=== PATIENT | female | born 1940 | race Caucasian/White ===

== ENCOUNTER → 2018-03-12 11:34 | Outpatient (CLI) | payer MEDICARE, OTHER, SELFPAY ==
--- NOTE | 2018-03-12 | DI.RAD.S_ITS ---
PROCEDURE: XR CHEST 2V INDICATIONS: COUGH TECHNIQUE: 2 views of the chest were acquired. COMPARISON: [facility], CHEST 2 VIEW, 03/17/2016, 11:17. [facility], CHEST 1 VIEW, 02/27/2012, 19:06. FINDINGS: Surgical changes and devices: None. Lungs and pleura: No pleural effusions or pneumothorax. Lungs are clear. Mediastinum: Mediastinal contours are normal. Heart size is normal. Bones and chest wall: No suspicious bony abnormalities. Soft tissues appear unremarkable. IMPRESSION: Normal for age, source of current symptoms is not seen. Dictated by: Gasper Castelan M.D. on 03/12/2018 at 11:55 Approved by: Gasper Castelan M.D. on 03/12/2018 at 11:55
== END ==
PROVIDERS: Family Provider Family Medicine; PCP Family Medicine; Visit Provider Family Medicine
DX: R05 Cough (principal)
CPT/HCPCS: 71046

== ENCOUNTER → 2018-04-19 10:26 | Outpatient (CLI) | payer MEDICARE, OTHER, SELFPAY ==
--- NOTE | 2018-04-19 | DI.MG.S_ITS ---
BILATERAL DIGITAL SCREENING MAMMOGRAM 3D/2D WITH CAD: 04/19/2018 CLINICAL: Routine screening. Family history of breast cancer. Comparison is made to exams dated: 04/05/2017 mammogram, 01/25/2016 mammogram, and 01/15/2015 mammogram - [facility]. There are scattered fibroglandular elements in both breasts. Current study was also evaluated with a Computer Aided Detection (CAD) system. There is a benign biopsy clip in the left breast. No significant masses, calcifications, or other findings are seen in either breast. There has been no significant interval change. IMPRESSION: NEGATIVE There is no mammographic evidence of malignancy. A 1 year screening mammogram is recommended. This exam was interpreted at Station ID: [id number]. NOTE: For mammograms, a report in lay terms will be sent to the patient. Approximately 15% of breast malignancies will not be visualized mammographically. In the management of a palpable breast mass, a negative mammogram must not discourage biopsy of a clinically suspicious lesion. Electronically Signed By: Emani jang/sheeba:04/20/2018 14:57:49 letter sent: Normal Exam ACR BI-RADS Category 1: Negative 3341F
== END ==
PROVIDERS: Family Provider Family Medicine; PCP Family Medicine; Visit Provider Family Medicine
DX: Z12.31 Encounter for screening mammogram for malignant neoplasm of breast (principal); Z80.3 Family history of malignant neoplasm of breast
CPT/HCPCS: 77063; 77067

== ENCOUNTER → 2018-07-02 09:15 | Outpatient (CLI) | payer MEDICARE, OTHER, SELFPAY ==
--- NOTE | 2018-07-02 | DI.RAD.S_ITS ---
PROCEDURE: XR CERVICAL SPINE 2V OR 3V INDICATIONS: NECK PAIN TECHNIQUE: 3 view(s) of the cervical spine were acquired. COMPARISON: [facility], CR, XR CERVICAL SPINE 2 OR 3VW, 02/05/2015, 12:01. FINDINGS: Bones: No fractures or dislocations to the T1 level. Loss of lordosis which could be related to muscle spasm, rigidity or simply positional.grade 1 spondylolisthesis C4-C5. Multilevel disc degeneration,, severe at the C5-C6 level. Moderate multilevel mid and lower cervical spine facet joint arthropathy. Mild to moderate multilevel uncovertebral hypertrophy. The lateral masses of C1 appear intact on the odontoid view. No suspicious bony lesions. Soft tissues: No prevertebral soft tissue swelling. IMPRESSION: Multilevel degenerative change. Dictated by: Henrique George [facility] Interpreted: Gasper Castelan MD on 07/02/2018 at 9:36 Approved by: Gasper Castelan M.D. on 07/02/2018 at 14:19
== END ==
PROVIDERS: Family Provider Family Medicine; PCP Family Medicine; Visit Provider Family Medicine
DX: M54.2 Cervicalgia (principal); M47.812 Spondylosis without myelopathy or radiculopathy, cervical region
CPT/HCPCS: 72040

== ENCOUNTER → 2018-08-09 09:25 | Outpatient (REF) | payer MEDICARE, OTHER, SELFPAY ==
[2018-08-09 09:45] LABS: INR 2.7 (0.9-1.3); Prothrombin Time 31.1 SECONDS (10.1-12.7)
== END ==
LOC: LAB 09:25
PROVIDERS: Family Provider Family Medicine; PCP Family Medicine; Visit Provider Family Medicine
DX: Z79.01 Long term (current) use of anticoagulants (principal)
CPT/HCPCS: 85610

== ENCOUNTER → 2018-08-20 12:09 | Outpatient (CLI) | payer MEDICARE, OTHER, SELFPAY ==
--- NOTE | 2018-08-20 | DI.RAD.S_ITS ---
PROCEDURE: XR KNEE RT 3V INDICATIONS: RT KNEE PAIN TECHNIQUE: 3 views of the knee were acquired. COMPARISON: None. FINDINGS: Bones: No fractures or dislocations. No suspicious bony lesions. Mild degenerative joint space narrowing at the medial compartment of the right knee, moderate sized degeneration of the lateral facet of the patellofemoral joint. Soft tissues: No joint effusion. No suspicious soft tissue calcifications. 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 Dictated by: Gasper Castelan M.D. on 08/20/2018 at 13:02 Approved by: Gasper Castelan M.D. on 08/20/2018 at 13:02
== END ==
PROVIDERS: PCP Family Medicine; Visit Provider Family Medicine
DX: M25.561 Pain in right knee (principal); M17.11 Unilateral primary osteoarthritis, right knee
CPT/HCPCS: 73562

== ENCOUNTER → 2018-09-10 10:46 | Outpatient (REF) | payer MEDICARE, OTHER, SELFPAY ==
[2018-09-10 11:03] LABS: INR 3.2 (0.9-1.3); Prothrombin Time 37.9 SECONDS (10.1-12.7)
== END ==
LOC: LAB 10:46
PROVIDERS: PCP Family Medicine; Visit Provider Family Medicine
DX: Z79.01 Long term (current) use of anticoagulants (principal)
CPT/HCPCS: 85610

== ENCOUNTER → 2018-10-11 11:03 | Outpatient (ROUT) | payer MEDICARE, OTHER, SELFPAY ==
[2018-10-11 11:22] LABS: INR 2.8 (0.9-1.3); Prothrombin Time 33.4 SECONDS (10.1-12.7)
== END ==
PROVIDERS: PCP Family Medicine; Visit Provider Family Medicine
DX: Z79.01 Long term (current) use of anticoagulants (principal)
CPT/HCPCS: 85610

== ENCOUNTER → 2018-11-07 09:30 | Outpatient (ROUT) | payer MEDICARE, OTHER, SELFPAY ==
[2018-11-07 09:40] LABS: INR 3.7 (0.9-1.3); Prothrombin Time 44.2 SECONDS (10.1-12.7)
== END ==
PROVIDERS: PCP Family Medicine; Visit Provider Family Medicine
DX: Z79.01 Long term (current) use of anticoagulants (principal)
CPT/HCPCS: 85610

== ENCOUNTER → 2018-11-30 13:43 | Outpatient (CLI) | payer MEDICARE, OTHER, SELFPAY ==
--- NOTE | 2018-11-30 | DI.ECHO.S_ITS ---
[place] [facility]---------+ [facility] +---------+ : : [address] : : : : [id number] : : : : Phone: [phone]+ Echocardiogram Report + + :Name: NORY MAGAÑA Study Date: 11/30/2018 Height: 66 in : :[facility] Exam Location: [place] Weight: 137 lb : : Gender: Female BSA: 1.7 m2 : :: 1940 Age: 78 yrs BP: 122/75 mmHg: :Reason For Study: Tachycardia : :Ordering Physician: Marc : :Miguel Performed By: Maribeth Page : + + Interpretation Summary The left ventricle is normal in size. The ejection fraction is estimated to be 60-65%. There has been no significant change in LV EF since the previous study. The right ventricle is normal in size and function. There is moderate mitral regurgitation. Compared to the prior echo study, there has been no change in the severity of mitral regurgitation. There is moderate to severe tricuspid regurgitation. Compared to the prior echo exam, there has been no change in TR severity. The right ventricular systolic pressure is estimated to be at least 48 mmHg based on an estimated right atrial pressure of 8 mm Hg. Compared to the prior echo exam, there has been no change in the severity of pulmonary hypertension. Procedure: A two-dimensional transthoracic echocardiogram with color flow and Doppler was performed. The study quality was technically adequate. Comparison is made with the echocardiogram of . The heart rate ranged between 61-84 bpm during the study. The patient had frequent PVCs during the exam. The patient was in normal sinus rhythm during the exam. Left Ventricle: The left ventricle is normal in size. There is normal left ventricular wall thickness. There is no thrombus. The ejection fraction is estimated to be 60-65%. There has been no significant change since the previous study. There are no focal wall motion abnormalities. MV E/A: 1.0 Med Peak E' Jd: 4.3 cm/sec E/E' med: 17.3. Right Ventricle: The right ventricle is normal in size and function. Atria: The left atrium is severely dilated. The left atrium has remained unchanged in size since the prior echo exam. The right atrium is mild to moderately dilated. There is no Doppler evidence for an interatrial shunt. Mitral Valve: The mitral valve leaflets appear mildly thickened, but open well. There is mild mitral annular calcification. There is a flat closure plane of the the mitral valve leaflets. There is moderate mitral regurgitation. Compared to the prior echo study, there has been no change in the severity of mitral regurgitation. Aortic Valve: The aortic valve is trileaflet. The aortic valve opens well. There is mild aortic valve sclerosis. No aortic regurgitation is present. Tricuspid Valve: The tricuspid valve leaflets are thin and pliable. There is moderate to severe tricuspid regurgitation. The right ventricular systolic pressure is estimated to be at least 48 mmHg based on an estimated right atrial pressure of 8 mm Hg. Compared to the prior echo exam, there has been no change in TR severity. Compared to the prior echo exam, there has been no change in the severity of pulmonary hypertension. Pulmonic Valve: The pulmonic valve is not well visualized. Great Vessels: The aortic root is normal size. The ascending aorta is normal in size. The pulmonary is not well visualized. The IVC is dilated (diameter is greater than 2.1 cm) yet it collapses greater than 50% with a sniff. This suggests a right atrial pressure of 8 mm Hg. Pericardium/ Pleura There is no pericardial effusion. There is no pleural effusion. MMode/2D Measurements & Calculations LVIDd: 4.3 cm Ao root diam: 3.0 cm LVIDs: 2.7 cm asc Aorta Diam: 2.7 cm FS: 38.2 % EPSS: 0.35 cm IVSd: 0.71 cm LVPWd: 0.95 cm LV keita. diameter/BSA (cm/m^2): 2.5 LV sys. diameter/BSA (cm/m^2): 1.6 LA A2 area: 32.3 cm2 RA long axis: 6.3 cm LA A4 area: 25.5 cm2 RA area: 21.1 cm2 LA length (vol): 6.2 cm RA vol: 60.2 ml LA vol: 113.1 ml RA : 35.4 ml/m2 LA vol index: 66.4 ml/m2 IVC diam: 2.3 cm RVD1 (basal): 4.2 cm RVD2 (mid): 3.5 cm Doppler Measurements & Calculations Ao V2 max: 116.4 cm/sec LVOT Max Jd: 83.8 cm/sec Ao V2 mean: 77.8 cm/sec LV V1 max P.8 mmHg Ao max P.4 mmHg LV V1 VTI: 18.0 cm Ao mean P.9 mmHg sev ratio: 0.66 Ao V2 VTI: 27.2 cm MV E max jd: 75.0 cm/sec TR max jd: 315.2 cm/sec MV A max jd: 71.5 cm/sec TR max P.8 mmHg MV E/A: 1.0 PA V2 max: 57.0 cm/sec Med Peak E' Jd: 4.3 cm/sec PA V2 mean: 40.9 cm/sec E/E' med: 17.3 PA mean P.74 mmHg Lat Peak E' Jd: 6.1 cm/sec PA Accel Time: 0.04 sec E/E' lat: 12.3 E/e' average: 14.8 MV P1/2t: 27.1 msec MV P1/2t max jd: 75.0 cm/sec MVA(P1/2t): 8.1 cm2 Reading Physician:APURVA
== END ==
PROVIDERS: PCP Family Medicine; Visit Provider Internal Medicine Cardiovascular Disease
DX: I47.2 Ventricular tachycardia (principal)
CPT/HCPCS: 93306

== ENCOUNTER → 2018-12-06 12:06 | Outpatient (ROUT) | payer MEDICARE, OTHER, SELFPAY ==
[2018-12-06 12:17] LABS: INR 3.2 (0.9-1.3)
== END ==
PROVIDERS: PCP Family Medicine; Visit Provider Family Medicine
DX: Z79.01 Long term (current) use of anticoagulants (principal)
CPT/HCPCS: 85610

== ENCOUNTER → 2019-01-09 12:48 | Outpatient (ROUT) | payer MEDICARE, OTHER, SELFPAY ==
[2019-01-09 13:02] LABS: INR 2.6 (0.9-1.3); Prothrombin Time 30.3 SECONDS (10.1-12.7)
== END ==
PROVIDERS: PCP Family Medicine; Visit Provider Family Medicine
DX: I26.99 Other pulmonary embolism without acute cor pulmonale (principal); Z79.01 Long term (current) use of anticoagulants
CPT/HCPCS: 85610

== ENCOUNTER → 2019-04-05 09:30 | Outpatient (ROUT) | payer MEDICARE, OTHER, SELFPAY ==
[2019-04-05 09:49] LABS: INR 2.7 (0.9-1.3); Prothrombin Time 31.9 SECONDS (10.1-12.7)
== END ==
PROVIDERS: PCP Family Medicine; Visit Provider Family Medicine
DX: Z79.01 Long term (current) use of anticoagulants (principal)
CPT/HCPCS: 85610

== ENCOUNTER → 2019-04-22 15:02 | Outpatient (CLI) | payer MEDICARE, OTHER, SELFPAY ==
--- NOTE | 2019-04-22 | DI.MG.S_ITS ---
BILATERAL DIGITAL SCREENING MAMMOGRAM 3D/2D WITH CAD: 04/22/2019 CLINICAL: Routine screening. Family history of breast cancer. Comparison is made to exams dated: 04/19/2018 mammogram, 04/05/2017 mammogram, and 01/25/2016 mammogram - [facility]. The tissue of both breasts is heterogeneously dense. This may lower the sensitivity of mammography. Current study was also evaluated with a Computer Aided Detection (CAD) system. There is a 0.4 cm equal density focal asymmetry in the left breast at 3 o'clock middle depth. This is more prominent. No other significant masses, calcifications, or other findings are seen in either breast. IMPRESSION: INCOMPLETE: NEEDS ADDITIONAL IMAGING EVALUATION The 0.4 cm equal density focal asymmetry in the left breast is indeterminate. Additional views with possible ultrasound are recommended. This exam was interpreted at Station ID: [id number]. NOTE: For mammograms, a report in lay terms will be sent to the patient. Approximately 15% of breast malignancies will not be visualized mammographically. In the management of a palpable breast mass, a negative mammogram must not discourage biopsy of a clinically suspicious lesion. Electronically Signed By: Juma Sheikh M.D. aty/:04/22/2019 20:00:12 letter sent: Additional Imaging Needed ACR BI-RADS Category 0: Incomplete 3340F
== END ==
PROVIDERS: PCP Family Medicine; Visit Provider Family Medicine
DX: Z12.31 Encounter for screening mammogram for malignant neoplasm of breast (principal); Z80.3 Family history of malignant neoplasm of breast
CPT/HCPCS: 77063; 77067

== ENCOUNTER → 2019-04-25 12:43 | Outpatient (CLI) | payer MEDICARE, OTHER, SELFPAY ==
--- NOTE | 2019-04-25 | DI.MG.S_ITS ---
UNILATERAL LEFT DIGITAL DIAGNOSTIC MAMMOGRAM 3D/2D WITH ADDITIONAL VIEWS: 04/25/2019 CLINICAL: Additional evaluation requested from prior study. Comparison is made to exams dated: 04/22/2019 mammogram, 04/19/2018 mammogram, and 04/05/2017 mammogram - [facility]. There are scattered fibroglandular elements in left breast. There is a 6 mm round asymmetry with a microlobulated margin in the left breast at 3 o'clock middle depth. This is confirmed with additional views. A biopsy clip is present in the upper outer quadrant, separate from this finding. No other significant masses or calcifications are seen in the breast. IMPRESSION: INCOMPLETE: NEEDS ADDITIONAL IMAGING EVALUATION The 6 mm round asymmetry in the left breast is indeterminate. An ultrasound is recommended. This was performed immediately following this exam. This exam was interpreted at Station ID: [id number]. NOTE: For mammograms, a report in lay terms will be sent to the patient. Approximately 15% of breast malignancies will not be visualized mammographically. In the management of a palpable breast mass, a negative mammogram must not discourage biopsy of a clinically suspicious lesion. Electronically Signed By: Jeanine walden/:04/25/2019 13:52:26 ACR BI-RADS Category 0: Incomplete 3340F
--- NOTE | 2019-04-25 | DI.US.S_ITS ---
ULTRASOUND OF LEFT BREAST AND AXILLA: 04/25/2019 CLINICAL: Patient returns today to evaluate a density in the left breast. Comparison is made to exams dated: 04/25/2019 mammogram, 04/22/2019 mammogram, 04/19/2018 mammogram, 04/05/2017 mammogram, 01/25/2016 mammogram, and 01/15/2015 mammogram - [facility]. Color flow, real-time, and continuous wave Doppler ultrasound of the left breast axilla were performed. There is a 0.5 cm x 0.3 cm x 0.4 cm wider than tall oval mass in the left breast at 1 o'clock middle depth 3 cm from the nipple. This oval mass displays an abrupt boundary and no posterior acoustic shadowing or enhancement. This correlates with mammography findings. Color flow imaging demonstrates that there is vascularity present. There also is a 0.4 cm x 0.3 cm x 0.3 cm oval mass in the left breast at 1:30 middle depth 3 cm from the nipple. This oval mass is hypoechoic with slight posterior acoustic enhancement. Color flow imaging demonstrates that there is an adjacent vascularity. This may correspond to the biopsy marker. No significant abnormalities were seen sonographically in the left axilla. IMPRESSION: PROBABLY BENIGN The 0.5 cm wider than tall oval mass in the left breast at 1 o'clock middle depth is probably benign. The 0.4 cm oval mass in the left breast at 2 o'clock middle depth is probably benign. A follow-up left mammogram and an ultrasound in 6 months is recommended to demonstrate stability. Findings and recommendations were conveyed to the patient at time of exam. This exam was interpreted at Station ID: [id number]. Electronically Signed By: Jeanine walden/:04/25/2019 14:11:22 letter sent: Followup Recommended Ultrasound BI-RADS: 3 Probably benign
== END ==
PROVIDERS: PCP Family Medicine; Visit Provider Family Medicine
DX: R92.8 Other abnormal and inconclusive findings on diagnostic imaging of breast (principal); N63.21 Unspecified lump in the left breast, upper outer quadrant
CPT/HCPCS: 76642; 77065; G0279

== ENCOUNTER → 2019-05-02 09:28 | Outpatient (ROUT) | payer MEDICARE, OTHER, SELFPAY ==
[2019-05-02 09:40] LABS: INR 4.1 (0.9-1.3); Prothrombin Time 48.7 SECONDS (10.1-12.7)
== END ==
PROVIDERS: PCP Family Medicine; Visit Provider Family Medicine
DX: Z79.01 Long term (current) use of anticoagulants (principal)
CPT/HCPCS: 85610

== ENCOUNTER → 2019-05-09 09:20 | Outpatient (ROUT) | payer MEDICARE, OTHER, SELFPAY ==
[2019-05-09 09:33] LABS: INR 1.8 (0.9-1.3)
== END ==
PROVIDERS: PCP Family Medicine; Visit Provider Family Medicine
DX: Z79.01 Long term (current) use of anticoagulants (principal)
CPT/HCPCS: 85610

== ENCOUNTER → 2019-05-16 09:09 | Outpatient (ROUT) | payer MEDICARE, OTHER, SELFPAY ==
[2019-05-16 09:23] LABS: INR 2.9 (0.9-1.3); Prothrombin Time 34.4 SECONDS (10.1-12.7)
== END ==
PROVIDERS: PCP Family Medicine; Visit Provider Family Medicine
DX: Z79.01 Long term (current) use of anticoagulants (principal)
CPT/HCPCS: 85610

== ENCOUNTER → 2019-06-06 09:14 | Outpatient (ROUT) | payer MEDICARE, OTHER, SELFPAY ==
[2019-06-06 09:20] LABS: INR 2.8 (0.9-1.3); Prothrombin Time 32.5 SECONDS (10.1-12.7)
== END ==
PROVIDERS: PCP Family Medicine; Visit Provider Family Medicine
DX: Z79.01 Long term (current) use of anticoagulants (principal)
CPT/HCPCS: 85610

== ENCOUNTER → 2019-07-01 09:55 | Outpatient (ROUT) | payer MEDICARE, OTHER, SELFPAY ==
[2019-07-01 10:04] LABS: INR 2.2 (0.9-1.3); Prothrombin Time 25.3 SECONDS (10.1-12.7)
== END ==
PROVIDERS: PCP Family Medicine; Visit Provider Family Medicine
DX: Z79.01 Long term (current) use of anticoagulants (principal)
CPT/HCPCS: 85610

== ENCOUNTER → 2019-07-18 09:37 | Outpatient (ROUT) | payer MEDICARE, OTHER, SELFPAY ==
[2019-07-18 09:54] LABS: INR 2.8 (0.9-1.3); Prothrombin Time 31.5 SECONDS (10.1-12.7)
== END ==
PROVIDERS: PCP Family Medicine; Visit Provider Family Medicine
DX: Z79.01 Long term (current) use of anticoagulants (principal)
CPT/HCPCS: 85610

== ENCOUNTER → 2019-07-31 09:24 | Outpatient (ROUT) | payer MEDICARE, OTHER, SELFPAY ==
[2019-07-31 09:33] LABS: INR 2.2 (0.9-1.3); Prothrombin Time 24.5 SECONDS (10.1-12.7)
== END ==
PROVIDERS: PCP Family Medicine; Visit Provider Family Medicine
DX: Z79.01 Long term (current) use of anticoagulants (principal)
CPT/HCPCS: 85610

== ENCOUNTER → 2019-08-16 09:37 | Outpatient (ROUT) | payer MEDICARE, OTHER, SELFPAY ==
[2019-08-16 09:46] LABS: Prothrombin Time 22.5 SECONDS (10.1-12.7)
== END ==
PROVIDERS: PCP Family Medicine; Visit Provider Family Medicine
DX: Z79.01 Long term (current) use of anticoagulants (principal)
CPT/HCPCS: 85610

== ENCOUNTER → 2019-09-03 09:02 | Outpatient (ROUT) | payer MEDICARE, OTHER, SELFPAY ==
[2019-09-03 09:10] LABS: INR 1.8 (0.9-1.3); Prothrombin Time 20.6 SECONDS (10.1-12.7)
== END ==
PROVIDERS: PCP Family Medicine; Visit Provider Family Medicine
DX: Z79.01 Long term (current) use of anticoagulants (principal)
CPT/HCPCS: 85610

== ENCOUNTER → 2019-10-03 09:46 | Outpatient (ROUT) | payer MEDICARE, OTHER, SELFPAY ==
[2019-10-03 09:55] LABS: INR 2.4 (0.9-1.3); Prothrombin Time 27.5 SECONDS (10.1-12.7)
== END ==
PROVIDERS: PCP Family Medicine; Visit Provider Family Medicine
DX: Z79.01 Long term (current) use of anticoagulants (principal)
CPT/HCPCS: 85610

== ENCOUNTER → 2019-11-06 09:26 | Outpatient (ROUT) | payer MEDICARE, OTHER, SELFPAY ==
[2019-11-06 10:04] LABS: INR 3.3 (0.9-1.3); Prothrombin Time 36.9 SECONDS (10.1-12.7)
== END ==
PROVIDERS: PCP Family Medicine; Visit Provider Family Medicine
DX: Z79.01 Long term (current) use of anticoagulants (principal)
CPT/HCPCS: 85610

== ENCOUNTER → 2019-12-03 09:40 | Outpatient (ROUT) | payer MEDICARE, OTHER, SELFPAY ==
[2019-12-03 09:53] LABS: INR 2.8 (0.9-1.3); Prothrombin Time 31.7 SECONDS (10.1-12.7)
== END ==
PROVIDERS: PCP Family Medicine; Visit Provider Family Medicine
DX: Z79.01 Long term (current) use of anticoagulants (principal)
CPT/HCPCS: 85610

== ENCOUNTER → 2020-01-02 09:33 | Outpatient (ROUT) | payer MEDICARE, OTHER, SELFPAY ==
[2020-01-02 09:53] LABS: Prothrombin Time 34.3 SECONDS (10.1-12.7)
== END ==
PROVIDERS: PCP Family Medicine; Visit Provider Family Medicine
DX: Z79.01 Long term (current) use of anticoagulants (principal)
CPT/HCPCS: 85610

== ENCOUNTER → 2020-02-05 13:17 | Outpatient (ROUT) | payer MEDICARE, OTHER, SELFPAY ==
[2020-02-05 13:25] LABS: INR 3.2 (0.9-1.3); Prothrombin Time 36.7 SECONDS (10.1-12.7)
== END ==
PROVIDERS: PCP Family Medicine; Visit Provider Family Medicine
DX: I26.99 Other pulmonary embolism without acute cor pulmonale (principal); Z79.01 Long term (current) use of anticoagulants
CPT/HCPCS: 85610

== ENCOUNTER → 2020-03-06 12:40 | Outpatient (CLI) | payer MEDICARE, OTHER, SELFPAY ==
--- NOTE | 2020-03-06 | DI.US.S_ITS ---
LIMITED ULTRASOUND OF LEFT BREAST AND AXILLA: 03/06/2020 CLINICAL: Patient returns today to evaluate a focal asymmetry in the left breast. Follow-up mass. Comparison is made to exams dated: 03/06/2020 mammogram, 04/25/2019 ultrasound, and 04/25/2019 mammogram - [facility]. Color flow and real-time ultrasound of the left breast 1-2 o'clock, and axilla regions were performed. Maldonado scale images of the real-time examination were reviewed. Again noted is the 0.6 cm x 0.3 cm x 0.4 cm wider than tall oval mass in the left breast at 1 o'clock middle depth 3 cm from the nipple. This oval mass displays an abrupt boundary and no posterior acoustic shadowing or enhancement. This abnormality is not significantly changed and likely correlates with mammography findings. Color flow imaging demonstrates that there is an adjacent vascularity. There also is a 0.6 cm x 0.4 cm x 0.6 cm oval mass in the left breast at 2 o'clock middle depth 3 cm from the nipple. This oval mass is hypoechoic with posterior acoustic enhancement. This abnormality is not significantly changed. Color flow imaging demonstrates that there is an adjacent vascularity. No significant abnormalities were seen sonographically in the left axilla. IMPRESSION: PROBABLY BENIGN The 0.6 cm x 0.3 cm x 0.4 cm wider than tall oval mass in the left breast at 1 o'clock middle depth is probably benign. The 0.6 cm x 0.4 cm x 0.6 cm oval mass in the left breast at 2 o'clock middle depth is also probably benign. A follow-up bilateral mammogram and a left ultrasound in 12 months is recommended to document approximately two years of stability. Findings and recommendations were conveyed to the patient during today's evaluation. This exam was interpreted at Station ID: [id number]. Electronically Signed By: Juma Sheikh M.D. aty/:03/06/2020 14:19:11 letter sent: Followup Recommended Ultrasound BI-RADS: 3 Probably benign
--- NOTE | 2020-03-06 | DI.MG.S_ITS ---
BILATERAL DIGITAL DIAGNOSTIC MAMMOGRAM 3D/2D SHORT-TERM FOLLOW-UP: 03/06/2020 CLINICAL: Short term follow up of the left breast, due for bilateral imaging. Comparison is made to exams dated: 04/25/2019 mammogram, 04/22/2019 mammogram, and 04/19/2018 mammogram - [facility]. There are scattered fibroglandular elements in both breasts. There is a biopsy site marker on the left breast. Redemonstrations of the 6 mm round asymmetry with a microlobulated margin in the left breast at 3 o'clock middle depth. This is not significantly changed. No other significant masses, calcifications, or other findings are seen in either breast. IMPRESSION: INCOMPLETE: NEEDS ADDITIONAL IMAGING EVALUATION The 6 mm round asymmetry in the left breast is indeterminate. An ultrasound is recommended for further evaluation and is scheduled to immediately follow this study. This exam was interpreted at Station ID: [id number]. NOTE: For mammograms, a report in lay terms will be sent to the patient. Approximately 15% of breast malignancies will not be visualized mammographically. In the management of a palpable breast mass, a negative mammogram must not discourage biopsy of a clinically suspicious lesion. Electronically Signed By: Juma Sheikh M.D. aty/:03/06/2020 14:14:28 ACR BI-RADS Category 0: Incomplete [id number]
== END ==
PROVIDERS: PCP Family Medicine; Referring Provider Family Medicine; Visit Provider Family Medicine
DX: R92.8 Other abnormal and inconclusive findings on diagnostic imaging of breast (principal); N64.89 Other specified disorders of breast; N63.21 Unspecified lump in the left breast, upper outer quadrant
CPT/HCPCS: 76642; 77066; G0279

== ENCOUNTER → 2020-03-09 12:04 | Outpatient (ROUT) | payer MEDICARE, OTHER, SELFPAY ==
[2020-03-09 12:12] LABS: INR 4.1 (0.9-1.3); Prothrombin Time 46.7 SECONDS (10.1-12.7)
== END ==
PROVIDERS: PCP Family Medicine; Visit Provider Family Medicine
DX: Z79.01 Long term (current) use of anticoagulants (principal)
CPT/HCPCS: 85610

== ENCOUNTER → 2020-03-20 08:49 | Outpatient (ROUT) | payer MEDICARE, OTHER, SELFPAY ==
[2020-03-20 09:15] LABS: INR 2.2 (0.9-1.3); Prothrombin Time 25.5 SECONDS (10.1-12.7)
== END ==
PROVIDERS: PCP Family Medicine; Visit Provider Family Medicine
DX: Z79.01 Long term (current) use of anticoagulants (principal)
CPT/HCPCS: 85610

== ENCOUNTER → 2020-04-03 09:22 | Outpatient (ROUT) | payer MEDICARE, OTHER, SELFPAY ==
[2020-04-03 09:35] LABS: INR 2.3 (0.9-1.3); Prothrombin Time 25.9 SECONDS (10.1-12.7)
== END ==
PROVIDERS: PCP Family Medicine; Visit Provider Family Medicine
DX: Z79.01 Long term (current) use of anticoagulants (principal)
CPT/HCPCS: 85610

== ENCOUNTER → 2020-04-17 09:20 | Outpatient (ROUT) | payer MEDICARE, OTHER, SELFPAY ==
[2020-04-17 09:29] LABS: INR 3.1 (0.9-1.3); Prothrombin Time 34.8 SECONDS (10.1-12.7)
== END ==
PROVIDERS: PCP Family Medicine; Visit Provider Family Medicine
DX: Z79.01 Long term (current) use of anticoagulants (principal)
CPT/HCPCS: 85610

== ENCOUNTER → 2020-04-24 09:29 | Outpatient (ROUT) | payer MEDICARE, OTHER, SELFPAY ==
[2020-04-24 09:37] LABS: INR 2.1 (0.9-1.3); Prothrombin Time 24.5 SECONDS (10.1-12.7)
== END ==
PROVIDERS: PCP Family Medicine; Visit Provider Family Medicine
DX: Z79.01 Long term (current) use of anticoagulants (principal)
CPT/HCPCS: 85610

== ENCOUNTER → 2020-05-22 09:36 | Outpatient (ROUT) | payer MEDICARE, OTHER, SELFPAY ==
[2020-05-22 09:50] LABS: INR 2.2 (0.9-1.3); Prothrombin Time 25.8 SECONDS (10.1-12.7)
== END ==
PROVIDERS: PCP Family Medicine
DX: Z79.01 Long term (current) use of anticoagulants (principal)
CPT/HCPCS: 85610

== ENCOUNTER → 2020-06-12 08:51 | Outpatient (CLI) | payer MEDICARE, OTHER, SELFPAY ==
[2020-06-12] MEDS: COVID-19 VACC #1, MRNA(MOD) 100 MCG/0.5 ML VIAL IM (09:01)
== END ==
PROVIDERS: PCP Family Medicine; Visit Provider Internal Medicine
DX: Z23 Encounter for immunization (principal)
CPT/HCPCS: 0011A; 91301

== ENCOUNTER → 2020-06-15 11:36 | Outpatient (ROUT) | payer MEDICARE, OTHER, SELFPAY ==
[2020-06-15 11:55] LABS: INR 2.3 (0.9-1.3); Prothrombin Time 26.7 SECONDS (10.1-12.7)
== END ==
PROVIDERS: PCP Family Medicine; Visit Provider Family Medicine
DX: Z79.01 Long term (current) use of anticoagulants (principal)
CPT/HCPCS: 85610

== ENCOUNTER → 2020-07-10 09:04 | Outpatient (CLI) | payer MEDICARE, OTHER, SELFPAY ==
[2020-07-10] MEDS: COVID-19 VACC #2, MRNA(MOD) 100 MCG/0.5 ML VIAL IM (09:09)
== END ==
PROVIDERS: PCP Family Medicine; Visit Provider Internal Medicine
DX: Z23 Encounter for immunization (principal)
CPT/HCPCS: 0012A; 91301

== ENCOUNTER → 2020-07-13 10:17 | Outpatient (ROUT) | payer MEDICARE, OTHER, SELFPAY ==
[2020-07-13 10:52] LABS: INR 2.4 (0.9-1.3); Prothrombin Time 27.9 SECONDS (10.1-12.7)
== END ==
PROVIDERS: PCP Family Medicine; Visit Provider Family Medicine
DX: Z79.01 Long term (current) use of anticoagulants (principal)
CPT/HCPCS: 85610

== ENCOUNTER → 2020-07-25 09:03 | Outpatient (CLI) | payer MEDICARE, OTHER, SELFPAY ==
[2020-07-25 11:36] LABS: COVID19 -Nasal RAPID Negative (Negative)
== END ==
PROVIDERS: PCP Family Medicine; Visit Provider Nurse Practitioner
DX: Z20.822 Contact with and (suspected) exposure to COVID-19 (principal)
CPT/HCPCS: 87635; C9803

== ENCOUNTER 2020-07-28 10:04 | Emergency (ER) | payer MEDICARE, OTHER, SELFPAY ==
[2020-07-28 10:20] VITALS: BP 204/91; PULSE 65; RESP 18; TEMP 35.7; O2SAT 99; BMI 22.6
[2020-07-28 10:47] LABS: Add Manual Diff / Slide Review NO; Basophils Absolute Auto 100 /uL (0-100); Eosinophils Absolute Auto 100 /uL (0-450); Eosinophils Percent Auto 1.1 % (2-4); Hematocrit 40.4 % (36-46); Hemoglobin 13.4 g/dL (12.0-16.0); Lymphocytes Absolute Auto 1200 /uL (1100-4500); Lymphocytes Percent Auto 15.7 % (25-40); Mean Corpuscular HGB Conc 33.1 % (30-36); Mean Corpuscular Hemoglobin 30.7 PG (26-34); Mean Corpuscular Volume 92.8 fL (80-100); Monocytes Absolute Auto 500 /uL (0-900); Monocytes Percent Auto 6.8 % (3-14); Neutrophils Absolute Auto 5800 /uL (1500-7000); Neutrophils Percent Auto 75.4 % (50-75); Platelet Count 221 X10^3/uL (150-400); Red Blood Cell Count 4.35 X10^6/uL (4.0-5.2); Red Cell Distribution Width 14.1 % (11.6-14.8); White Blood Cell Count 7.7 X10^3/uL (4.5-11.0)
[2020-07-28 10:53] LABS: INR 3.3 (0.9-1.3); Prothrombin Time 36.5 SECONDS (10.1-12.7)
--- NOTE | 2020-07-28 10:53 | ED.ABDPAIN ---
HPI - Abdominal Pain General Chief Complaint: Abdominal Pain Stated Complaint: Possible appendicitis, sent over from surgery Time Seen by Provider: 07/28/20 10:24 Source: patient Mode of arrival: Wheelchair Limitations: no limitations History of Present Illness HPI narrative: Patient is an 80-year-old female history of hypertension presenting today on her way for cataract removal when she had sudden onset of right lower quadrant pain. She says is actually just over her iliac crest. Comes in sharp waves non radiating from her flank. No migration of pain nothing seems to make it better or worse. She has intermittent spasms of pain. MD complaint: abdominal pain Onset (ago): hour(s) Pain Consistency: intermittent Location: RLQ Severity: moderate Quality: stabbing Migration to: no migration Relieving factors: nothing Exacerbating factors: nothing Related Data Home Medications Medication Instructions Recorded Confirmed ATENOLOL (Tenormin) 25 mg PO BID #0 12/19/09 Cetirizine Hydrochloride (Zyrtec) 5 mg PO PRN #0 12/19/09 LISINOPRIL (Zestril / Prinivil) 40 mg PO Q DAY #0 12/19/09 MULTIVITAMIN/MINERALS (Thera M 1 tab PO Q DAY #0 12/19/09 Plus Tablet) WARFARIN SODIUM (COUMADIN) 5 mg PO Q DAY #0 12/19/09 Zolpidem Tartrate (Ambien) 5 mg PO HS #0 12/19/09 nortriptyline 10 mg PO HS #0 04/21/11 [HYDROCHLORAT] #0 12/08/11 docusate sodium 100 mg PO Q DAY #0 12/08/11 rabeprazole [AcipHex] #0 12/08/11 PROPRANOLOL HCL (Propranolol HCl 80 mg PO Q DAY #0 02/27/12 ER) Allergies Allergy/AdvReac Type Severity Reaction Status Date / Time codeine [CODEINE] Allergy Intermediate ABDOMINAL Unverified 12/03/19 10:36 PAIN hydrocodone [HYDROCODONE] Allergy Unknown Unverified 12/03/19 10:36 meperidine [MEPERIDINE] Allergy Unknown RASH, Unverified 12/03/19 10:36 NAUSEA morphine [MORPHINE] Allergy Unknown Unverified 12/03/19 10:36 prochlorperazine Allergy Unknown Unverified 12/03/19 10:36 [PROCHLORPERAZINE] Sulfa (Sulfonamide Allergy Unknown Unverified 12/03/19 10:36 Antibiotics) [SULFA (SULFONAMIDE ANTIBIOTICS)] amoxicillin [From Augmentin] Allergy Verified 07/28/20 10:30 cephalexin [From Keflex] Allergy Verified 07/28/20 10:30 ciprofloxacin [From Cipro] Allergy Verified 07/28/20 10:30 clavulanic acid Allergy Verified 07/28/20 10:30 [From Augmentin] fentanyl Allergy Verified 07/28/20 10:30 hydromorphone [From Dilaudid] Allergy Verified 07/28/20 10:30 Review of Systems Review of Systems Narrative: GENERAL: Denies chills, fatigue, malaise, fever, sweats, travel HEENT: Denies sinus pain, ear pain, sore throat, difficulty swallowing, neck pain RESPIRATORY: Denies dyspnea, cough, wheezing, hemoptysis, sputum. CARDIOVASCULAR: Denies chest pain, palpitations, orthopnea, edema GASTROINTESTINAL: See HPI : Denies dysuria, frequency, incontinence, hematuria, urinary retention, flank pain. MUSCULOSKELETAL: Denies weakness, joint pain, or bony pain SKIN: No rash, no erythema, no pruritus NEUROLOGIC: Denies weakness, dizziness, headache, numbness, change in speech, confusion PSYCHIATRIC: No concerning psychosocial issues. 12 point review of systems is negative except for those stated above and HPI Patient History Medical History Hypertension Social History Smoking Status: Never smoker Smoking Status: Never smoker alcohol intake frequency: 0-2 drinks per day Substance Use Type: does not use Exam Initial Vital Signs Initial Vital Signs: Vital Signs Temperature 96.2 F L 07/28/20 10:20 Pulse Rate 65 07/28/20 10:20 Respiratory Rate 18 07/28/20 10:20 Blood Pressure 204/91 H 07/28/20 10:20 Pulse Oximetry 99 07/28/20 10:20 GENERAL: Alert pleasant 80-year-old female and in no acute distress. HEENT: Head atraumatic,EOMI, pupils reactive, face symmetric, moist mucous membranes CARDIOVASCULAR: Regular rate and rhythm without murmurs, rubs or gallops. RESPIRATORY: Breath sounds equal bilaterally, no wheezes rales or rhonchi. ABDOMEN: Soft, nontender, minimal right lower quadrant tenderness no guarding or rebound. Normoactive bowel sounds all 4 quadrants. No guarding or rebound. : No CVA tenderness EXTREMITIES: Normal range of motion, no clubbing or edema. Neurovascularly intact. No pain with internal-external rotation of right. Incision more insight no erythema minimally tender over the trochanter more tender over the iliac crest NEUROLOGICAL: Alert and oriented x4.Normal gait and speech. SKIN: Warm, dry, no laceration, no petechiae, no rashes or lesions. Course Orders Ordered: ED Orders 07/28/20 10:25 EKG-12 Lead Stat 07/28/20 10:41 Complete Blood Count AUTO DIFF Stat Comprehensive Metabolic Panel Stat Lipase Stat Partial Thromboplastin Time Stat Prothrombin Time INR Stat 07/28/20 11:31 CT abdomen pelvis w con Stat 07/28/20 11:45 UA Complete [Urinalysis and Microscopic] Stat Vital Signs Vital signs: Vital Signs - 8 hr 07/28/20 10:20 07/28/20 11:51 Temperature 96.2 F L Pulse Rate 65 60 Respiratory Rate 18 Blood Pressure 204/91 H Pulse Oximetry 99 98 MDM - Abdominal Pain Lab Data Attestation: I reviewed the patient's lab results. Result diagrams: 07/28/20 10:41 07/28/20 10:41 Labs: Lab Results 07/28/20 07/28/20 07/28/20 Range/Units 10:41 10:41 10:41 WBC 7.7 (4.5-11.0) X10^3/uL RBC 4.35 (4.0-5.2) X10^6/uL Hgb 13.4 (12.0-16.0) g/dL Hct 40.4 (36-46) % MCV 92.8 (80-100) fL MCH 30.7 (26-34) PG MCHC 33.1 (30-36) % RDW 14.1 (11.6-14.8) % Plt Count 221 (150-400) X10^3/uL Neut % (Auto) 75.4 H (50-75) % Lymph % (Auto) 15.7 L (25-40) % [place] % (Auto) 6.8 (3-14) % Eos % (Auto) 1.1 L (2-4) % Baso % (Auto) 1.0 (0-2) % Neut # (Auto) 5800 (9490-0804) /uL Lymph # (Auto) 1200 (8799-7623) /uL [place] # (Auto) 500 (0-900) /uL Eos # (Auto) 100 (0-450) /uL Baso # (Auto) 100 (0-100) /uL PT 36.5 H (10.1-12.7) SECONDS INR 3.3 H (0.9-1.3) APTT 40 H (26.4-36.2) SECONDS Sodium 139 (137-145) mmol/L Potassium 4.7 (3.4-5.1) mmol/L Chloride 102 (98-107) mmol/L Carbon Dioxide 32 (22-32) mmol/L BUN 14 (7-17) mg/dL Creatinine 0.95 (0.52-1.04) mg/dL Estimated GFR 56.3 L (>60) mL/min BUN/Creatinine Ratio 14.7 (6-22) Glucose 114 H (80-110) mg/dL Calcium 10.3 H (8.4-10.2) mg/dL Total Bilirubin 0.8 (0.2-1.3) mg/dL AST 32 (14-36) IU/L ALT 21 (<35) IU/L Alkaline Phosphatase 58 (38-126) U/L Total Protein 7.4 (6.3-8.2) g/dL Albumin 4.5 (3.5-5.0) g/dL Globulin 2.9 (1.7-4.1) g/dL Albumin/Globulin Ratio 1.6 (1.0-2.8) Lipase 117 (23-300) U/L Urine Color Urine Appearance Urine pH (4.5-8.0) Ur Specific [place] (1.000-1.035) Urine Protein (Negative) Urine Glucose (UA) (Negative) g/dL Urine Ketones (NEGATIVE) Urine Occult Blood (Negative) Urine Nitrate (Negative) Urine Bilirubin (NEGATIVE) Urine Urobilinogen (0.2) E.U./dL Ur Leukocyte Esterase (NEGATIVE) Urine RBC (0-5/HPF) Urine WBC (0-5/HPF) Urine Bacteria (None) Hyaline Casts (None) Urine Mucus (Negative) Ur Culture Indicated? 07/28/20 Range/Units 11:45 WBC (4.5-11.0) X10^3/uL RBC (4.0-5.2) X10^6/uL Hgb (12.0-16.0) g/dL Hct (36-46) % MCV (80-100) fL MCH (26-34) PG MCHC (30-36) % RDW (11.6-14.8) % Plt Count (150-400) X10^3/uL Neut % (Auto) (50-75) % Lymph % (Auto) (25-40) % [place] % (Auto) (3-14) % Eos % (Auto) (2-4) % Baso % (Auto) (0-2) % Neut # (Auto) (2959-0515) /uL Lymph # (Auto) (0358-4181) /uL [place] # (Auto) (0-900) /uL Eos # (Auto) (0-450) /uL Baso # (Auto) (0-100) /uL PT (10.1-12.7) SECONDS INR (0.9-1.3) APTT (26.4-36.2) SECONDS Sodium (137-145) mmol/L Potassium (3.4-5.1) mmol/L Chloride (98-107) mmol/L Carbon Dioxide (22-32) mmol/L BUN (7-17) mg/dL Creatinine (0.52-1.04) mg/dL Estimated GFR (>60) mL/min BUN/Creatinine Ratio (6-22) Glucose (80-110) mg/dL Calcium (8.4-10.2) mg/dL Total Bilirubin (0.2-1.3) mg/dL AST (14-36) IU/L ALT (<35) IU/L Alkaline Phosphatase (38-126) U/L Total Protein (6.3-8.2) g/dL Albumin (3.5-5.0) g/dL Globulin (1.7-4.1) g/dL Albumin/Globulin Ratio (1.0-2.8) Lipase (23-300) U/L Urine Color Yellow Urine Appearance Clear Urine pH 6.0 (4.5-8.0) Ur Specific [place] 1.015 (1.000-1.035) Urine Protein Negative (Negative) Urine Glucose (UA) Negative (Negative) g/dL Urine Ketones Trace H (NEGATIVE) Urine Occult Blood 1+ H (Negative) Urine Nitrate Negative (Negative) Urine Bilirubin Negative (NEGATIVE) Urine Urobilinogen 0.2 (0.2) E.U./dL Ur Leukocyte Esterase Negative (NEGATIVE) Urine RBC 1-5/hpf (0-5/HPF) Urine WBC None seen (0-5/HPF) Urine Bacteria None seen (None) Hyaline Casts 1-5/lpf (None) Urine Mucus 1+ H (Negative) Ur Culture Indicated? Cult not indicated Imaging Data CT scan - abdomen/pelvis: Radiologist's Impression: PROCEDURE: CT ABDOMEN PELVIS W CON INDICATIONS: rlq pain TECHNIQUE: After the administration of intravenous contrast, 5 mm thick sections acquired from the diaphragm to the symphysis. 5 mm coronal and sagittal reformats were acquired. For radiation dose reduction, the following was used: automated exposure control, adjustment of mA and/or kV according to patient size. COMPARISON: [facility], CT, ABDOMEN/PELVIS WITH CONTRAST, 10/25/2012, 13:09. FINDINGS: Image quality: Portions of the lower pelvis are suboptimally evaluated secondary to metallic streak artifact from hip arthroplasty. ABDOMEN: Lung bases: Lung bases are clear. Heart size is normal. Solid organs: Liver is mildly prominent with steatosis. Gallbladder . There is prominence of the common bile duct measuring approximately 13 mm, more prominent when compared to 2012. Biliary system is non dilated. Pancreas enhances normally. Spleen is normal in size and enhancement. No adrenal nodules. Kidneys demonstrate normal size and enhancement, without hydronephrosis. Peritoneum and bowel: Bowel loops demonstrate normal wall thickness and caliber. No free fluid or air. Prominent colonic stool is present. There is no obstruction. The appendix is unremarkable. No right lower quadrant inflammatory change. Nodes and vessels: No retroperitoneal or mesenteric adenopathy by size criteria. Aorta and inferior vena cava are normal in size. Miscellaneous: No ventral hernias. There is a 33 mm AP x 34 mm transverse focus of low attenuation with rim enhancement adjacent to the right hip within the subcutaneous tissues. There is very minimal associated adjacent stranding. Most recent prior exam was 2012, in which this was not visualized. PELVIS: Genitourinary: Bladder wall thickness is normal. Miscellaneous: No inguinal hernias or adenopathy. Bones: No suspicious bony lesions. No vertebral body compression fractures. Right hip arthroplasty. IMPRESSION: 1. Moderate colonic stool without obstruction. 2. Appendix is unremarkable. 3. Low-attenuation focus with rim enhancement in the subcutaneous fat of the right hip region. This can represent a focus of infection or inflammation. This could represent early abscess given minimal appearance of surrounding stranding. Other etiologies to be considered could include seroma or potentially infected cyst. Dictated by: Elizabeth Ariza M.D. on 07/28/2020 at 11:56 MDM Narrative Medical decision making narrative: Patient states that she has chronic is right trochanteric bursitis since her surgery. there is no sign of infection. This came on suddenly she has no fever no leukocytosis minimally tender over the trochanteric more tender over the iliac crest. Abdomen is soft and non tender. 12 30 discussed case with orthopedics Dr. Phan is of the states that this is probably chronic recommend follow-up with her orthopedist. She is allergic to multiple pain medications at this time is not requiring anything for pain. Discussed orthopedic recommendations with patient, she would prefer to follow up with a new orthopedic so I have referred her to [facility]. Discharge Plan Departure Patient Disposition: Home Clinical Impression: Bursitis of hip, right Instructions: Bursitis Activity Restrictions/Additional Instructions: *You have been diagnosed with chronic bursitis of right hip *What to do: At this time unknown cause of pain that you are experiencing. CT scan does show some inflammation around her hip at a different site but this is likely chronic bursitis. I do not believe you have an infection at this time. Please monitor it closely and return if symptoms are worsening *Continue to take medications as directed *Follow up with your primary care provider in 2-3 days *Return to ER if you should have increasing pain, fever, redness, inability to bear weight or any new, worsening or concerning symptoms Prescriptions: No Action ATENOLOL (Tenormin) 25 mg PO BID Qty: 0 RF: 0 MULTIVITAMIN/MINERALS (Thera M Plus Tablet) 1 tab PO Q DAY Qty: 0 RF: 0 Cetirizine Hydrochloride (Zyrtec) 5 mg PO PRN Qty: 0 RF: 0 LISINOPRIL (Zestril / Prinivil) 40 mg PO Q DAY Qty: 0 RF: 0 WARFARIN SODIUM (COUMADIN) 5 mg PO Q DAY Qty: 0 RF: 0 Zolpidem Tartrate (Ambien) 5 mg PO HS Qty: 0 RF: 0 nortriptyline 10 MG capsule 10 mg PO HS Qty: 0 RF: 0 rabeprazole [AcipHex] 20 MG tablet,delayed release (DR/EC) Qty: 0 RF: 0 [HYDROCHLORAT] Qty: 0 RF: 0 docusate sodium 100 MG capsule 100 mg PO Q DAY Qty: 0 RF: 0 PROPRANOLOL HCL (Propranolol HCl ER) 80 mg PO Q DAY Qty: 0 RF: 0 Referrals: Екатерина Jo MD [Primary Care Provider] -
[2020-07-28 10:56] LABS: PTT Partial Thromboplastin Tim 40 SECONDS (26.4-36.2)
[2020-07-28 10:57] LABS: Alanine Aminotransferase 21 IU/L (<35); Albumin 4.5 g/dL (3.5-5.0); Albumin Globulin Ratio 1.6 (1.0-2.8); Alkaline Phosphatase 58 U/L (38-126); Aspartate Aminotransferase 32 IU/L (14-36); BUN Creatinine Ratio 14.7 (6-22); Bilirubin Total 0.8 mg/dL (0.2-1.3); Blood Urea Nitrogen 14 mg/dL (7-17); Calcium 10.3 mg/dL (8.4-10.2); Carbon Dioxide 32 mmol/L (22-32); Chloride 102 mmol/L (98-107); Estimated Glomerular Filt Rate 56.3 mL/min (>60); Globulin 2.9 g/dL (1.7-4.1); Glucose 114 mg/dL (80-110); HEMOLYSIS < 15 (0-50); Lipase 117 U/L (23-300); Potassium 4.7 mmol/L (3.4-5.1); Sodium 139 mmol/L (137-145); Total Protein 7.4 g/dL (6.3-8.2)
--- NOTE | 2020-07-28 11:31 | DI.CT.S_ITS ---
PROCEDURE: CT ABDOMEN PELVIS W CON INDICATIONS: rlq pain TECHNIQUE: After the administration of intravenous contrast, 5 mm thick sections acquired from the diaphragm to the symphysis. 5 mm coronal and sagittal reformats were acquired. For radiation dose reduction, the following was used: automated exposure control, adjustment of mA and/or kV according to patient size. COMPARISON: [facility], CT, ABDOMEN/PELVIS WITH CONTRAST, 10/25/2012, 13:09. FINDINGS: Image quality: Portions of the lower pelvis are suboptimally evaluated secondary to metallic streak artifact from hip arthroplasty. ABDOMEN: Lung bases: Lung bases are clear. Heart size is normal. Solid organs: Liver is mildly prominent with steatosis. Gallbladder . There is prominence of the common bile duct measuring approximately 13 mm, more prominent when compared to 2013. Biliary system is non dilated. Pancreas enhances normally. Spleen is normal in size and enhancement. No adrenal nodules. Kidneys demonstrate normal size and enhancement, without hydronephrosis. Peritoneum and bowel: Bowel loops demonstrate normal wall thickness and caliber. No free fluid or air. Prominent colonic stool is present. There is no obstruction. The appendix is unremarkable. No right lower quadrant inflammatory change. Nodes and vessels: No retroperitoneal or mesenteric adenopathy by size criteria. Aorta and inferior vena cava are normal in size. Miscellaneous: No ventral hernias. There is a 33 mm AP x 34 mm transverse focus of low attenuation with rim enhancement adjacent to the right hip within the subcutaneous tissues. There is very minimal associated adjacent stranding. Most recent prior exam was 2012, in which this was not visualized. PELVIS: Genitourinary: Bladder wall thickness is normal. Miscellaneous: No inguinal hernias or adenopathy. Bones: No suspicious bony lesions. No vertebral body compression fractures. Right hip arthroplasty. IMPRESSION: 1. Moderate colonic stool without obstruction. 2. Appendix is unremarkable. 3. Low-attenuation focus with rim enhancement in the subcutaneous fat of the right hip region. This can represent a focus of infection or inflammation. This could represent early abscess given minimal appearance of surrounding stranding. Other etiologies to be considered could include seroma or potentially infected cyst. Dictated by: Elizabeth Ariza M.D. on 07/28/2020 at 11:56 Approved by: Elizabeth Ariza M.D. on 07/28/2020 at 12:09
[2020-07-28 11:51] VITALS: PULSE 60; O2SAT 98
--- NOTE | 2020-07-28 11:53 | PC.NURSE ---
patient reports pain now dull and 2\10
[2020-07-28 12:01] LABS: Bacteria Urine None Seen; WBC Urine None Seen (0-5/HPF)
[2020-07-28 12:14] LABS: Appearance Urine UA CLEAR; Bilirubin Urine UA NEGATIVE (NEGATIVE); Color Urine UA YELLOW; Glucose Urine UA NEGATIVE (Negative); Ketones Urine UA TRACE (NEGATIVE); Leukocyte Esterase Urine UA NEGATIVE (NEGATIVE); Nitrite Urine UA NEGATIVE (Negative); Occult Blood Urine UA 1+ (Negative); Protein Urine UA NEGATIVE (Negative); Specific Gravity Urine UA 1.015 (1.000-1.035); Urobilinogen Urine UA 0.2 E.U./dL (0.2)
[2020-07-28 12:24] LABS: Culture Indicated Urine Cult Not Indicated; Hyaline Casts Urine 1-5/LPF; Mucus Urine 1+ (Negative); RBC Urine 1-5/HPF (0-5/HPF)
== END 2020-07-28 13:00 | disposition home or self-care (01) ==
PROVIDERS: Emergency Provider Emergency Medicine; PCP Family Medicine; Referring Provider Emergency Medicine
DX: M70.71 Other bursitis of hip, right hip (principal); R10.31 Right lower quadrant pain
CPT/HCPCS: 36415; 74177; 80053; 81001; 83690; 85025; 85610; 85730; 93005; 93010; 99283; 99284; Q9967

== ENCOUNTER → 2020-08-08 11:44 | Outpatient (CLI) | payer MEDICARE, OTHER, SELFPAY ==
[2020-08-08 13:21] LABS: COVID19 -Nasal RAPID Negative (Negative)
== END ==
PROVIDERS: PCP Family Medicine; Visit Provider Physician Assistant
DX: Z20.822 Contact with and (suspected) exposure to COVID-19 (principal)
CPT/HCPCS: 87635; C9803

== ENCOUNTER 2020-08-11 06:59 | Day surgery (SDC) | payer MEDICARE, OTHER, SELFPAY ==
[2020-08-11 07:36] VITALS: BP 149/84; PULSE 56; RESP 16; TEMP 37; O2SAT 100; BMI 22.6
[2020-08-11] MEDS: PROPARACAINE 0.5% OPHTH SOL 2 DROPS EYE-OP (07:43)
[2020-08-11] MEDS: CATARACT EYE COMPOUND (10 DROPS/SYRINGE) 3 DROPS EYE-OP (07:45)
--- NOTE | 2020-08-11 08:29 | PM.PREOP ---
Pre-operative Note Interval Note History & Physical reviewed/Exam performed by Physician: Yes Changes to H&P: No
--- NOTE | 2020-08-11 08:30 | P.OP_ITS ---
Operative Date/Time/Diagnoses Pre-op diagnosis: Nuclear Cataract Left eye Post-op diagnosis: same Procedure & Clinicians Same procedure as scheduled: Yes Surgeon: Juan Parker Anesthesia Type: MAC +/- and Sedation Operative Notes Procedure in detail: Patient brought to the operating suite. Tetracaine drops placed in the left eye. Patient was prepped and draped in sterile manner. Wire lid speculum was placed in the eye. Betadine drops were placed on the eye. This was irrigated. Lidocaine jelly was placed on the eye. A paracentesis port was created with a side-port blade. 0.1 mL 1% preservative free lidocaine was injected into the anterior chamber. The anterior chamber was deepened with viscoelastic. 2.6 mm keratome was used to create a temporal clear corneal incision. Cystotome and Utrata forceps were used to create continuous tear capsulorrhexis. Balanced salt solution was used to hydro dissect the nucleus. The phacoemulsification handpiece was inserted and the nucleus was removed using the stop and chop technique. The irrigation aspiration handpiece was inserted and the remaining cortex was removed. Anterior chamber was deepened with viscoe lastic. An Dixon ZCB00 intraocular lens with a power of 19.0 was injected into the capsular bag. Irrigation aspiration handpiece was inserted and the remaining viscoelastic was removed. Incision was hydrated with balanced salt solution and found to be leak free with pressure with Weck-Arabella sponges. 0.1 mL Vigamox injected anterior chamber. 0.3 mL Kenalog 10 mg was injected subconjunctivally. Lid speculum was removed. The patient left the operating room in excellent condition. Complications: none Post-operative Condition: stable Disposition: same day surgery
[2020-08-11] MEDS: PHENYLEPHRINE/LIDOCAINE VIAL (OR) 0.2 ML EYE-OP (08:53)
[2020-08-11] MEDS: CHONDROIDTIN/SOD HYALURONATE 1.05 ML SYRINGE INTRAOCULA (08:53)
[2020-08-11] MEDS: MOXIFLOXACIN INJ 5 MG/ML VIAL EYE-OP (08:53)
[2020-08-11] MEDS: BALANCED SALT IRRIG SOLN NO.2 500 ML, EPINEPHrine 1 MG IRR (08:54)
[2020-08-11] MEDS: TETRACAINE 0.5% OPHTH DROPS 4 ML 2 DROPS EYE-OP (08:54)
[2020-08-11] MEDS: TRIAMCINOLONE 50 MG/5 ML VIAL INJ (08:54)
[2020-08-11] MEDS: LIDOCAINE 2% (GLYDO) 6 ML GEL TOP (08:55)
[2020-08-11 09:07] VITALS: BP 131/76; PULSE 58; RESP 16; TEMP 36.7; O2SAT 97
--- NOTE | 2020-08-11 09:11 | SUR.PHASEII ---
Pt wanting to go, ame called message left.
--- NOTE | 2020-08-11 09:34 | SUR.PHASEII ---
Son returned call, on his way, pt dressed and ready to go.
== END 2020-08-11 09:25 | disposition home or self-care (01) ==
PROVIDERS: PCP Family Medicine; Referring Provider Family Medicine; Visit Provider Ophthalmology
PROC: (CPT 66984; principal; 2020-08-11 08:45)
DX: H25.12 Age-related nuclear cataract, left eye (principal); I10 Essential (primary) hypertension; Z86.711 Personal history of pulmonary embolism; Z79.01 Long term (current) use of anticoagulants
CPT/HCPCS: 66984; J0171; J2250; J3301

== ENCOUNTER → 2020-08-25 14:25 | Outpatient (ROUT) | payer MEDICARE, OTHER, SELFPAY ==
[2020-08-25 14:47] LABS: INR 2.5 (0.9-1.3); Prothrombin Time 28.2 SECONDS (10.1-12.7)
== END ==
PROVIDERS: PCP Family Medicine; Visit Provider Family Medicine
DX: Z79.01 Long term (current) use of anticoagulants (principal)
CPT/HCPCS: 85610

== ENCOUNTER → 2020-08-29 09:10 | Outpatient (CLI) | payer MEDICARE, OTHER, SELFPAY ==
[2020-08-29 10:56] LABS: COVID19 -Nasal RAPID Negative (Negative)
== END ==
PROVIDERS: PCP Family Medicine; Visit Provider Physician Assistant
DX: Z20.822 Contact with and (suspected) exposure to COVID-19 (principal)
CPT/HCPCS: 87635; C9803

== ENCOUNTER 2020-09-01 06:58 | Day surgery (SDC) | payer MEDICARE, OTHER, SELFPAY ==
[2020-09-01] MEDS: PROPARACAINE 0.5% OPHTH SOL 2 DROPS EYE-OP ×2 (07:22→08:16)
[2020-09-01] MEDS: CATARACT EYE COMPOUND (10 DROPS/SYRINGE) 3 DROPS EYE-OP (07:27)
[2020-09-01 07:31] VITALS: BP 163/85; PULSE 62; RESP 18; TEMP 36.6; O2SAT 100; BMI 22.6
--- NOTE | 2020-09-01 07:58 | PM.PREOP ---
Pre-operative Note Interval Note History & Physical reviewed/Exam performed by Physician: Yes Changes to H&P: No
--- NOTE | 2020-09-01 07:58 | PM.OP.1 ---
Operative Date/Time/Diagnoses Pre-op diagnosis: Nuclear cataract right eye Procedure & Clinicians Procedure: Cataract Surgery Same procedure as scheduled: Yes Surgeon: Juan Parker Anesthesia Type: MAC +/- and Sedation Operative Notes Procedure in detail: Patient brought to the operating suite. Tetracaine drops placed in the right eye. Patient was prepped and draped in sterile manner. Wire lid speculum was placed in the eye. Betadine drops were placed on the eye. This was irrigated. Lidocaine jelly was placed on the eye. A paracentesis port was created with a side-port blade. 0.1 mL 1% preservative free lidocaine was injected into the anterior chamber. The anterior chamber was deepened with viscoelastic. 2.6 mm keratome was used to create a temporal clear corneal incision. Cystotome and Utrata forceps were used to create continuous tear capsulorrhexis. Balanced salt solution was used to hydro dissect the nucleus. The phacoemulsification handpiece was inserted and the nucleus was removed using the stop and chop technique. The irrigation aspiration handpiece was inserted and the remaining cortex was removed. Anterior chamber was deepened with viscoelastic. An Dixon ZCB00 intraocular lens with a power of 19.0 was injected into the capsular bag. Irrigation aspiration handpiece was inserted and the remaining viscoelastic was removed. Incision was hydrated with balanced salt solution and found to be leak free with pressure with Weck-Arabella sponges. 0.1 mL Vigamox injected anterior chamber. 0.3 mL Kenalog 10 mg was injected subconjunctivally. Lid speculum was removed. The patient left the operating room in excellent condition. Complications: none Post-operative Condition: stable Disposition: same day surgery
[2020-09-01] MEDS: PHENYLEPHRINE/LIDOCAINE VIAL (OR) 0.2 ML EYE-OP (08:24)
[2020-09-01] MEDS: MOXIFLOXACIN INJ 4 MG/0.8 ML VIAL 0.5 MG EYE-OP (08:25)
[2020-09-01] MEDS: BALANCED SALT IRRIG SOLN NO.2 500 ML, EPINEPHrine 1 MG IRR (08:26)
[2020-09-01] MEDS: TRIAMCINOLONE 50 MG/5 ML VIAL INJ (08:26)
[2020-09-01] MEDS: TETRACAINE 0.5% OPHTH DROPS 4 ML 2 DROPS EYE-OP (08:26)
[2020-09-01] MEDS: LIDOCAINE 2% (GLYDO) 6 ML GEL TOP (08:26)
[2020-09-01 08:35] VITALS: BP 141/75; PULSE 64; RESP 16; TEMP 36.2; O2SAT 100
--- NOTE | 2020-09-01 08:44 | SUR.PHASEII ---
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 pt denies any pain and nausea. No complaints voiced. Pt drinking gingerale and states she feels fine.
== END 2020-09-01 08:48 | disposition home or self-care (01) ==
PROVIDERS: PCP Family Medicine; Referring Provider Ophthalmology; Visit Provider Ophthalmology
PROC: (CPT 66984; principal; 2020-09-01 08:15)
DX: H25.11 Age-related nuclear cataract, right eye (principal); I10 Essential (primary) hypertension; Z86.711 Personal history of pulmonary embolism
CPT/HCPCS: 66984; J0171; J2250; J3301

== ENCOUNTER → 2020-09-07 08:47 | Outpatient (ROUT) | payer MEDICARE, OTHER, SELFPAY ==
[2020-09-07 08:58] LABS: INR 2.4 (0.9-1.3); Prothrombin Time 27.5 SECONDS (10.1-12.7)
== END ==
PROVIDERS: PCP Family Medicine; Visit Provider Family Medicine
DX: Z79.01 Long term (current) use of anticoagulants (principal)
CPT/HCPCS: 85610

== ENCOUNTER → 2020-09-21 09:04 | Outpatient (ROUT) | payer MEDICARE, OTHER, SELFPAY ==
[2020-09-21 09:14] LABS: Prothrombin Time 34.5 SECONDS (10.1-12.7)
== END ==
PROVIDERS: PCP Family Medicine; Visit Provider Family Medicine
DX: Z79.01 Long term (current) use of anticoagulants (principal)
CPT/HCPCS: 85610

== ENCOUNTER → 2020-09-28 09:52 | Outpatient (ROUT) | payer MEDICARE, OTHER, SELFPAY ==
[2020-09-28 10:04] LABS: INR 2.6 (0.9-1.3); Prothrombin Time 29.6 SECONDS (10.1-12.7)
== END ==
PROVIDERS: PCP Family Medicine; Visit Provider Family Medicine
DX: Z79.01 Long term (current) use of anticoagulants (principal)
CPT/HCPCS: 85610

== ENCOUNTER → 2020-10-14 09:18 | Outpatient (ROUT) | payer MEDICARE, OTHER, SELFPAY ==
[2020-10-14 09:30] LABS: Prothrombin Time 34.4 SECONDS (10.1-12.7)
== END ==
PROVIDERS: PCP Family Medicine; Visit Provider Family Medicine
DX: Z79.01 Long term (current) use of anticoagulants (principal)
CPT/HCPCS: 85610

== ENCOUNTER → 2020-10-21 09:21 | Outpatient (ROUT) | payer MEDICARE, OTHER, SELFPAY ==
[2020-10-21 09:29] LABS: INR 2.9 (0.9-1.3); Prothrombin Time 34.4 SECONDS (10.1-12.7)
== END ==
PROVIDERS: PCP Family Medicine; Visit Provider Family Medicine
DX: Z79.01 Long term (current) use of anticoagulants (principal)
CPT/HCPCS: 85610

== ENCOUNTER → 2020-11-04 10:02 | Outpatient (ROUT) | payer MEDICARE, OTHER, SELFPAY ==
[2020-11-04 10:10] LABS: INR 2.4 (0.9-1.3); Prothrombin Time 28.4 SECONDS (10.1-12.7)
== END ==
PROVIDERS: PCP Family Medicine; Visit Provider Family Medicine
DX: Z79.01 Long term (current) use of anticoagulants (principal)
CPT/HCPCS: 85610

== ENCOUNTER → 2020-12-07 10:20 | Outpatient (ROUT) | payer MEDICARE, OTHER, SELFPAY ==
[2020-12-07 13:58] LABS: INR 3.3 (0.9-1.3); Prothrombin Time 37.5 SECONDS (10.1-12.7)
== END ==
PROVIDERS: PCP Family Medicine; Visit Provider Family Medicine
DX: I26.99 Other pulmonary embolism without acute cor pulmonale (principal); Z79.01 Long term (current) use of anticoagulants
CPT/HCPCS: 85610

== ENCOUNTER → 2020-12-24 08:44 | Outpatient (CLI) | payer MEDICARE, OTHER, SELFPAY ==
--- NOTE | 2020-12-24 | DI.MRI.S_ITS ---
PROCEDURE: MR CERVICAL SPINE WO CON INDICATIONS: Cervicalgia TECHNIQUE: Noncontrast sagittal T1 spin echo and T2 fast spin echo, sagittal STIR, foraminal oblique sagittal T2 fast spin echo, and axial gradient echo or T2 fast spin echo through the cervical spine. COMPARISON: [facility], , C-SPINE WITHOUT CONTRAST, 12/10/2014, 9:12. FINDINGS: Image quality: Excellent. Alignment and Curvature: There is normal bony alignment. Bone Marrow: Degenerative endplate changes noted particularly at C5-6 Spinal Cord: Visualized spinal cord has normal size and signal. No cerebellar tonsillar herniation. Paraspinous Soft Tissues: No paravertebral masses. Prevertebral soft tissues are normal in thickness. C2-C3: Normal appearance. C3-C4: Mild disc space narrowing and hypertrophic uncovertebral joints. No central stenosis. Mild left foraminal stenosis. No right foraminal stenosis. C4-C5: Mild disc space narrowing. There is degenerative anterior subluxation of C4 over C5, new from the prior exam. Hypertrophic uncovertebral joints results in flattening of the ventral surface of the cord without cord indentation. No cord edema or gliosis present. Moderate left and mild right foraminal stenosis. C5-C6: Moderate joint space narrowing and degenerative endplate changes noted. Hypertrophic uncovertebral joints, left greater than right are present. Disc osteophyte complex touches the ventral surface of the cord without cord indentation. Moderate left and no right foraminal stenosis. C6-C7: Mild disc space narrowing with a broad-based disc bulge present. Mild central stenosis. No foraminal stenosis. IMPRESSION: Multilevel degenerative disc disease and arthropathy has increased slightly from the prior exam now resulting in [id number] left-sided central stenosis at C4-5 and C5-6. No cord edema or gliosis. Approved by: Smith Mccarthy M.D. on 12/24/2020 at 14:13
== END ==
PROVIDERS: PCP Family Medicine; Referring Provider Family Medicine; Visit Provider Family Medicine
DX: M48.02 Spinal stenosis, cervical region (principal); M47.812 Spondylosis without myelopathy or radiculopathy, cervical region; M50.321 Other cervical disc degeneration at C4-C5 level
CPT/HCPCS: 72141

== ENCOUNTER → 2021-01-05 08:59 | Outpatient (ROUT) | payer MEDICARE, OTHER, SELFPAY ==
[2021-01-05 09:25] LABS: INR 2.4 (0.9-1.3); Prothrombin Time 27.6 SECONDS (10.1-12.7)
== END ==
PROVIDERS: PCP Family Medicine; Visit Provider Family Medicine
DX: Z79.01 Long term (current) use of anticoagulants (principal)
CPT/HCPCS: 85610

== ENCOUNTER → 2021-01-13 10:55 | Outpatient (CLI) | payer MEDICARE, OTHER, SELFPAY ==
--- NOTE | 2021-01-13 | DI.RAD.S_ITS ---
PROCEDURE: XR CERVICAL SPINE 2V OR 3V INDICATIONS: Spinal stenosis, cervical region TECHNIQUE: 3 view(s) of the cervical spine were acquired. COMPARISON: [facility], CR, XR CERVICAL SPINE 2V OR 3V, 07/02/2018, 9:21. FINDINGS: Bones: No fractures or dislocations to the C7-T1 level. Grade 1 anterolisthesis of C4 on C5 is seen. Degenerative endplate changes are noted throughout mid to lower cervical spine most prominent at C5-6 level unchanged from prior study. Minimal anterolisthesis of C6 on C7 is again noted and unchanged. The lateral masses of C1 appear intact on the odontoid view. No suspicious bony lesions. Soft tissues: No prevertebral soft tissue swelling. IMPRESSION: Degenerative disc disease in mid to lower cervical spine most prominent at C5-6 level. Minimal anterolisthesis at C4-5 and C6-7 levels. No acute compression fracture. Dictated by: Alessio Ruelas M.D. on 01/13/2021 at 11:26 Approved by: Alessio Ruelas M.D. on 01/13/2021 at 11:28
== END ==
PROVIDERS: PCP Family Medicine; Referring Provider Family Medicine; Visit Provider Family Medicine
DX: M48.02 Spinal stenosis, cervical region (principal); M50.322 Other cervical disc degeneration at C5-C6 level
CPT/HCPCS: 72040

== ENCOUNTER → 2021-02-01 11:54 | Outpatient (ROUT) | payer MEDICARE, OTHER, SELFPAY ==
[2021-02-01 12:49] LABS: INR 2.3 (0.9-1.3); Prothrombin Time 25.7 SECONDS (10.1-12.7)
== END ==
PROVIDERS: PCP Family Medicine; Visit Provider Family Medicine
DX: Z79.01 Long term (current) use of anticoagulants (principal)
CPT/HCPCS: 85610

== ENCOUNTER → 2021-02-23 12:36 | Outpatient (CLI) | payer MEDICARE, OTHER, SELFPAY ==
[2021-02-23 15:16] LABS: COVID19 -Nasal RAPID Negative (Negative)
== END ==
PROVIDERS: PCP Family Medicine; Referring Provider Physical Medicine & Rehabilitation; Visit Provider Physical Medicine & Rehabilitation
DX: Z20.822 Contact with and (suspected) exposure to COVID-19 (principal)
CPT/HCPCS: 87635; C9803

== ENCOUNTER 2021-02-25 09:18 | Outpatient (CLI) | payer MEDICARE, OTHER, SELFPAY ==
[2021-02-25] VITALS (9 sets, daily range): BP systolic 106–191; BP diastolic 63–99; PULSE 59–96; RESP 12–20; TEMP 37.1; O2SAT 95–100
--- NOTE | 2021-02-25 09:19 | DI.RAD.S_ITS ---
PROCEDURE: PAIN C/T FACET INJ/BLK 1ST L INDICATIONS: SPINAL STENOSIS COMPARISON: None. FINDINGS: Fluoroscopic spot filming was performed to verify placement of spinal needles at the right C4-C5, C5-C6 and C6-C7 facets level(s), as labeled on the films. Appropriate location(s) of the needle tip(s) was confirmed by injection of iodinated contrast. IMPRESSION: Access needles localized to the right C4-C5, C5-C6 and C6-C7 facets. Dictated by: Romelia Green MD, PhD on 02/25/2021 at 12:00 Approved by: Romelia Green MD, PhD on 02/25/2021 at 12:00
[2021-02-25] MEDS: IOPAMIDOL 15 ML VIAL 3 ML INJ (10:23)
[2021-02-25] MEDS: BUPIVACAINE 0.5% (PF) VIAL 2 ML INJ (10:23)
[2021-02-25] MEDS: DEXAMETHASONE 10 MG/ML VIAL 30 MG INJ (10:23)
[2021-02-25] MEDS: MIDAZOLAM 5 MG/5 ML VIAL IV (10:26)
--- NOTE | 2021-02-25 10:36 | P.PCN_ITS ---
Date/Time/Diagnoses Date of procedure: 02/25/21 Time of procedure: 10:37 Pre-procedure diagnosis: 1. FACET ARTHROPATHY 2. AXIAL NECK PAIN Post-procedure diagnosis: same Procedure Notes Procedure: 1. FLUOROSCOPICALLY GUIDED, CONTRAST-CONTROLLED RIGHT C4/5, C5/6 AND C6/7 FACET JOINT INJECTIONS WITH CONSCIOUS SEDATION. Indications: [place] is referred by Dr. Jo for treatment of Axial Neck Pain Physician: Devonte Ceballos Total Fluoroscopy time (seconds): 8 Total sedation minutes: 12 Complications: none Procedure in detail & Post-procedure care: DESCRIPTION OF PROCEDURE Fluoroscopically guided, contrast-controlled right C4/5, C5/6 and C6/7 facet joint injections with conscious sedation. Following review of allergy and review of potential side effects and complications, including, but not necessarily limited to, infection, allergic reaction, local tissue breakdown, stroke, temporary or permanent nerve injury and paralysis, the patient indicated that the patient understood and agreed to proceed. An informed consent document was signed by the patient, witnessed by a nurse, and placed in the patient's chart. Additionally, other treatment options including medications, modalities, and physical therapy were reviewed with the patient. After review of previous anaesthesic history and IV conscious sedation the patient was deemed safe to proceed with today?s procedure with IV conscious rocio tion as ASA class II designation. Safety time-out was performed to confirm patient ID, procedure to be performed and site of procedure. IV sedation was accomplished with a combination of 5mg of Versed was administered by the RN after DO order, titrated to patient comfort during the course of the procedure while the patient remained responsive to all verbal commands In the prone position, following sterile prep and drape of the cervical spine region, the posterior aspect of the right C4/5, C5/6 and C6/7 facet joints were identified fluoroscopically. The skin was anesthetized via a 25-gauge 1.5-inch needle with 1% lidocaine solution into the corresponding facet joints. At this point, a 25-gauge 2.5-inch spinal needle was atraumatically introduced and advanced under fluoroscopic guidance into the corresponding facet joints. Following negative aspiration, injections of approximately 0.2-cc of Isovue 200 confirmed interarticular placement without vascular uptake. At this point, a total of 1 cc including 0.5 cc or 5 mg of dexamethasone combined with 0.5 cc of 1% lidocaine solution was injected without complication into each of the corresponding facet joints. The procedure tolerated the procedure well without signs or symptoms of complications prior to transfer to the recovery area continued monitoring without incident. The patient was then transferred to the recovery area where they were observed for an appropriate period of time after the injection. The patient reported a VAS score of 7 prior to the procedure and a post- procedure VAS of 0. POST OP INSTRUCTIONS They were provided a Pain Log to continue to record their response to the target-specific procedure prior to their follow-up visit with their referring physician. Additionally, specific post-injection care instructions and a contact number to our office were provided if concerns arise regarding possible complications associated with the procedure are suspected.
== END 2021-02-25 11:03 | disposition home or self-care (01) ==
LOC: RAD 09:18
PROVIDERS: PCP Family Medicine; Referring Provider Physical Medicine & Rehabilitation; Visit Provider Physical Medicine & Rehabilitation
DX: M47.812 Spondylosis without myelopathy or radiculopathy, cervical region (principal); M54.2 Cervicalgia
CPT/HCPCS: 64490; 64491; 64492; 99152; J1100; J2250; J3010

== ENCOUNTER → 2021-03-11 10:49 | Outpatient (ROUT) | payer MEDICARE, OTHER, SELFPAY ==
[2021-03-11 10:56] LABS: INR 2.1 (0.9-1.3)
== END ==
PROVIDERS: PCP Family Medicine; Visit Provider Family Medicine
DX: I26.99 Other pulmonary embolism without acute cor pulmonale (principal); Z79.01 Long term (current) use of anticoagulants
CPT/HCPCS: 85610

== ENCOUNTER → 2021-04-14 09:30 | Outpatient (ROUT) | payer MEDICARE, OTHER, SELFPAY ==
[2021-04-14 09:57] LABS: INR 2.7 (0.9-1.3); Prothrombin Time 31.7 SECONDS (10.1-12.7)
== END ==
PROVIDERS: PCP Family Medicine; Visit Provider Family Medicine
DX: I26.99 Other pulmonary embolism without acute cor pulmonale (principal); Z79.01 Long term (current) use of anticoagulants
CPT/HCPCS: 85610

== ENCOUNTER → 2021-05-04 14:39 | Outpatient (ROUT) | payer MEDICARE, OTHER, SELFPAY ==
[2021-05-04 14:49] LABS: INR 2.1 (0.9-1.3); Prothrombin Time 23.9 SECONDS (10.1-12.7)
== END ==
PROVIDERS: PCP Family Medicine; Visit Provider Family Medicine
DX: Z79.01 Long term (current) use of anticoagulants (principal)
CPT/HCPCS: 85610

== ENCOUNTER → 2021-06-02 08:43 | Outpatient (ROUT) | payer MEDICARE, OTHER, SELFPAY ==
[2021-06-02 09:00] LABS: INR 2.7 (0.9-1.3); Prothrombin Time 31.9 SECONDS (10.1-12.7)
== END ==
PROVIDERS: PCP Family Medicine; Visit Provider Family Medicine
DX: Z79.01 Long term (current) use of anticoagulants (principal)
CPT/HCPCS: 85610

== ENCOUNTER → 2021-07-01 13:39 | Outpatient (ROUT) | payer MEDICARE, OTHER, SELFPAY ==
[2021-07-01 13:47] LABS: INR 2.9 (0.9-1.3); Prothrombin Time 33.9 SECONDS (10.1-12.7)
== END ==
PROVIDERS: PCP Family Medicine; Visit Provider Family Medicine
DX: Z79.01 Long term (current) use of anticoagulants (principal)
CPT/HCPCS: 85610

== ENCOUNTER 2021-07-17 21:07 | Emergency (ER) | payer MEDICARE, OTHER, SELFPAY ==
[2021-07-17] VITALS (9 sets, daily range): BP systolic 134–170; BP diastolic 71–85; PULSE 90–122; RESP 15–26; TEMP 36.6–36.7; O2SAT 98–100; BMI 22.2
[2021-07-17 21:26] LABS: Add Manual Diff / Slide Review NO; Basophils Absolute Auto 100 /uL (0-100); Basophils Percent Auto 1.1 % (0-2); Eosinophils Absolute Auto 200 /uL (0-450); Eosinophils Percent Auto 2.5 % (2-4); Hematocrit 41.8 % (36-46); Hemoglobin 13.5 g/dL (12.0-16.0); INR 2.3 (0.9-1.3); Lymphocytes Absolute Auto 2100 /uL (1100-4500); Lymphocytes Percent Auto 30.2 % (25-40); Mean Corpuscular HGB Conc 32.2 % (30-36); Mean Corpuscular Hemoglobin 30.6 PG (26-34); Mean Corpuscular Volume 94.8 fL (80-100); Monocytes Absolute Auto 600 /uL (0-900); Monocytes Percent Auto 9.2 % (3-14); Neutrophils Absolute Auto 4000 /uL (1500-7000); Platelet Count 205 X10^3/uL (150-400); Prothrombin Time 27.2 SECONDS (10.1-12.7); Red Blood Cell Count 4.41 X10^6/uL (4.0-5.2); Red Cell Distribution Width 14.8 % (11.6-14.8); White Blood Cell Count 6.9 X10^3/uL (4.5-11.0)
[2021-07-17 21:29] LABS: PTT Partial Thromboplastin Tim 39 SECONDS (26.4-36.2)
--- NOTE | 2021-07-17 21:31 | ED.ARRPALP ---
HPI - Arrhythmia/Palpitations General Chief Complaint: Arrhythmia/Palpitations Stated Complaint: afib Time Seen by Provider: 07/17/21 21:12 Source: patient Mode of arrival: EMS Limitations: no limitations History of Present Illness HPI narrative: Patient is an 81-year-old female. Does have a history of pulmonary embolism. Is on Coumadin for this. She states that a couple weeks ago she had her INR checked and it was between 2.5 in 3. Never had a history of atrial fibrillation. Earlier this evening she stated that she felt like her heart was beating fast. No shortness of breath. No chest pain. She does have a pulse oximeter at home which monitor both her heart rate and her oxygen saturations she states that her heart rate has been as high as the 130s. She contacted EMS. Did received Cardizem prior to arrival without improvement. Patient was AFib per EMS. Related Data Home Medications Medication Instructions Recorded Confirmed cetirizine 10 mg capsule 10 mg PO DAILY #0 12/19/09 06/02/21 zolpidem 10 mg tablet (Ambien) 10 mg PO BEDTIME #0 12/19/09 06/02/21 methylcellulose (laxative) 500 mg 1,500 mg PO DAILY 08/10/20 06/02/21 tablet (Citrucel) Probiotic 1 cap PO DAILY 09/01/20 06/02/21 amlodipine 2.5 mg tablet 2.5 mg PO DAILY 09/01/20 06/02/21 lorazepam 0.5 mg tablet 0.5 mg PO DAILY PRN 09/01/20 06/02/21 propranolol 60 mg tablet 60 mg PO DAILY 09/01/20 06/02/21 zinc 100 mg tablet 100 mg PO DAILY 09/01/20 06/02/21 ipratropium bromide 42 mcg (0.06 2 spray INTRANASAL DAILY PRN 02/12/21 06/02/21 %) nasal spray lisinopril 40 mg tablet 40 mg PO DAILY 02/12/21 06/02/21 multivitamin 1 tab PO DAILY 02/12/21 06/02/21 pantoprazole 40 mg tablet,delayed 40 mg PO DAILY 02/12/21 06/02/21 release (Protonix) polyethylene glycol 3350 17 17 g PO DAILY PRN 02/12/21 06/02/21 gram/dose oral powder (Miralax) warfarin 4 mg tablet 4 mg PO DAILY 02/12/21 06/02/21 Allergies Allergy/AdvReac Type Severity Reaction Status Date / Time Sulfa (Sulfonamide Allergy Severe ITCHING SOB Verified 02/12/21 08:25 Antibiotics) [SULFA (SULFONAMIDE ANTIBIOTICS)] chocolate flavor Allergy tightness Verified 02/12/21 08:25 Opioids - Morphine Analogues Allergy Verified 02/12/21 08:25 spinach Allergy Rash Verified 02/12/21 08:25 fentanyl AdvReac Severe trouble Verified 02/12/21 08:25 waking up, vomitting, spaciness hydrocodone [HYDROCODONE] AdvReac Severe Nausea Verified 02/12/21 08:25 hydromorphone [From Dilaudid] AdvReac Severe confusion, Verified 02/12/21 08:25 vomitting meperidine [MEPERIDINE] AdvReac Severe dizzy Verified 02/12/21 08:25 vomitting amoxicillin [From Augmentin] AdvReac Intermediate Gastrointestinal Verified 02/12/21 08:25 Upset cephalexin [From Keflex] AdvReac Intermediate ITCHING Verified 02/12/21 08:25 rash codeine [CODEINE] AdvReac Intermediate ABDOMINAL Verified 02/12/21 08:25 PAIN morphine [MORPHINE] AdvReac Intermediate Vomiting Verified 02/12/21 08:25 prochlorperazine AdvReac Intermediate Hallucinati Verified 02/12/21 08:25 [PROCHLORPERAZINE] ng ciprofloxacin [From Cipro] AdvReac Gastrointestinal Verified 02/12/21 08:25 Upset clavulanic acid AdvReac Verified 02/12/21 08:25 [From Augmentin] Review of Systems Constitutional Constitutional: Reports system reviewed and no additional complaints, except as documented Cardiovascular Cardiovascular: Reports as per HPI and Reports system reviewed and no additional complaints, except as documented Respiratory Respiratory: Reports as per HPI and Reports system reviewed and no additional complaints, except as documented Gastrointestinal Gastrointestinal: Reports system reviewed and no additional complaints, except as documented Integumentary/Breasts Skin/Breast: Reports system reviewed and no additional complaints, except as documented Hematologic/Lymphatic On Anticoagulants: No Patient History Medical History Arthritis Degenerative joint disease (DJD) of hip Facet arthropathy, cervical HNP (herniated nucleus pulposus), cervical Hypertension Pulmonary embolism Surgical History History of cholecystectomy History of hip replacement Family History Mother Hypertension Cervical cancer Father Emphysema lung Social History marital status: number of children: 2 household members: family and none education level: master's degree occupational status: previously employed 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 Smoking Status: Never smoker alcohol intake: never substance use type: does not use caffeine: No Type(s) of exercise: swimming and other frequency: 3-4 times per week Smoking Status: Never smoker alcohol intake frequency: 0-2 drinks per day Substance Use Type: does not use Exam Initial Vital Signs Initial Vital Signs: Vital Signs Temperature 98.0 F 07/17/21 21:25 Pulse Rate 121 H 07/17/21 21:25 Respiratory Rate 17 07/17/21 21:25 Blood Pressure 170/85 H 07/17/21 21:25 Pulse Oximetry 100 07/17/21 21:25 HENMT Head: normal to inspection and normocephalic Resp Effort & Inspection: normal respiratory effort Auscultation: clear to auscultation bilaterally Cardio Rate: regular rate Rhythm: abnormal rhythm GI Inspection: normal to inspection Skin General: no rashes or lesions noted Neuro General: patient alert, patient awake, patient oriented x3 and moves all extremities Extrem General: normal to inspection and capillary refill normal Psych Appearance: grossly normal and well kempt Procedures Cardioversion Consent Signed: Yes Indication: Atrial fibrillation Stability: Stable Number of attempts (shocks): 1 Joules used: 120 Cardiac rhythm post-cardioversion: Sinus rhythm Procedural Sedation Consent signed: Yes Time out performed: Yes Indication: cardioversion Preparation: radiographer cardiac catheterization applied, pulse oximeter, capnometry used, supplemental O2 applied, suction/airway equipment at bedside and IV secured IV Propofol dose (mg): 50 Intraservice time/total sedation time (min): 10 ED Sedation Level: Moderate (Concious) Patient Tolerated Procedure: Well Scores GCS Akbar coma scale eye opening: Spontaneous Akbar coma scale verbal response: Orientated [place] coma scale motor response: Obey commands Akbar coma scale total score: 15 Course Orders Ordered: ED Orders 07/17/21 21:00 Complete Blood Count AUTO DIFF Stat Partial Thromboplastin Time Stat Prothrombin Time INR Stat 07/17/21 21:13 EKG-12 Lead Stat 07/17/21 21:32 Comprehensive Metabolic Panel Stat Lipase Stat Troponin & CK Cardiac Panel Stat 07/17/21 21:52 Urine Microscopic Stat 07/17/21 23:08 RT Consult Eval and Treat Now 07/17/21 23:57 COVID19 -Nasal swab/Pre-Proc Stat 07/18/21 EKG-12 Lead Routine Discontinued Medications Propofol (Propofol 200 Mg/20 Ml Vial) 100 mg IV NOW ONE Stop: 07/17/21 23:09 Last Admin: 07/18/21 00:50 Dose: 50 mg Documented by: HENRIK Propofol (Propofol 200 Mg/20 Ml Vial) 30 mg 0.5 mg/kg (30 mg) IV NOW ONE Stop: 07/18/21 01:28 Vital Signs Vital signs: Vital Signs - 8 hr 07/17/21 21:25 07/17/21 21:34 07/17/21 22:00 Temperature 98.0 F Pulse Rate 121 H 102 H 97 H Respiratory Rate 17 26 H 21 Blood Pressure 170/85 H Pulse Oximetry 100 99 98 07/17/21 22:17 07/17/21 22:30 07/17/21 22:54 Temperature Pulse Rate 118 H 90 122 H Respiratory Rate 20 18 18 Blood Pressure 158/82 H 134/71 149/75 H Pulse Oximetry 98 98 98 07/17/21 23:00 07/17/21 23:30 07/17/21 23:33 Temperature 98 F Pulse Rate 100 H 112 H 122 H Respiratory Rate 15 23 17 Blood Pressure 141/73 H 138/79 138/79 Pulse Oximetry 98 99 99 07/18/21 00:00 07/18/21 00:30 07/18/21 00:50 Temperature Pulse Rate 154 H 116 H 118 H Respiratory Rate 17 16 26 H Blood Pressure 136/91 H 147/101 H 148/96 H Pulse Oximetry 98 99 99 07/18/21 00:55 07/18/21 01:00 07/18/21 01:05 Temperature Pulse Rate 72 66 64 Respiratory Rate 26 H 23 22 Blood Pressure 136/63 125/59 L 127/59 L Pulse Oximetry 95 98 99 07/18/21 01:10 07/18/21 01:15 07/18/21 01:20 Temperature Pulse Rate 64 63 67 Respiratory Rate 28 H 20 22 Blood Pressure 128/56 L 136/65 139/65 Pulse Oximetry 98 98 99 MDM - Arrhythmia/Palpitations Lab Data Attestation: I reviewed the patient's lab results. Result diagrams: 07/17/21 21:00 07/17/21 21:32 Labs: Lab Results 07/17/21 07/17/21 07/17/21 Range/Units 21:00 21:00 21:32 WBC 6.9 (4.5-11.0) X10^3/uL RBC 4.41 (4.0-5.2) X10^6/uL Hgb 13.5 (12.0-16.0) g/dL Hct 41.8 (36-46) % MCV 94.8 (80-100) fL MCH 30.6 (26-34) PG MCHC 32.2 (30-36) % RDW 14.8 (11.6-14.8) % Plt Count 205 (150-400) X10^3/uL Neut % (Auto) 57.0 (50-75) % Lymph % (Auto) 30.2 (25-40) % [place] % (Auto) 9.2 (3-14) % Eos % (Auto) 2.5 (2-4) % Baso % (Auto) 1.1 (0-2) % Neut # (Auto) 4000 (1213-4579) /uL Lymph # (Auto) 2100 (8398-4198) /uL [place]mer # (Auto) 600 (0-900) /uL Eos # (Auto) 200 (0-450) /uL Baso # (Auto) 100 (0-100) /uL PT 27.2 H (10.1-12.7) SECONDS INR 2.3 H (0.9-1.3) APTT 39 H (26.4-36.2) SECONDS Sodium 139 (137-145) mmol/L Potassium 3.8 (3.4-5.1) mmol/L Chloride 103 (98-107) mmol/L Carbon Dioxide 31 (22-32) mmol/L BUN 16 (7-17) mg/dL Creatinine 0.94 (0.52-1.04) mg/dL Estimated GFR 56.9 L (>60) mL/min BUN/Creatinine Ratio 17.0 (6-22) Glucose 117 H (80-110) mg/dL Calcium 9.4 (8.4-10.2) mg/dL Total Bilirubin 0.6 (0.2-1.3) mg/dL AST 50 H (14-36) IU/L ALT 31 (<35) IU/L Alkaline Phosphatase 54 (38-126) U/L Total Creatine Kinase 34 (30-135) U/L CK-MB (CK-2) TNP CK-MB (CK-2) Rel Index TNP Troponin I < 0.012 (0.01-0.034) ng/mL Total Protein 7.7 (6.3-8.2) g/dL Albumin 4.5 (3.5-5.0) g/dL Globulin 3.2 (1.7-4.1) g/dL Albumin/Globulin Ratio 1.4 (1.0-2.8) Lipase 236 (23-300) U/L Urine RBC (0-5/HPF) Urine WBC (0-5/HPF) Urine Bacteria (None) Ur Culture Indicated? SARS-CoV-2 (PCR) (Negative) 07/17/21 07/18/21 Range/Units 21:52 00:00 WBC (4.5-11.0) X10^3/uL RBC (4.0-5.2) X10^6/uL Hgb (12.0-16.0) g/dL Hct (36-46) % MCV (80-100) fL MCH (26-34) PG MCHC (30-36) % RDW (11.6-14.8) % Plt Count (150-400) X10^3/uL Neut % (Auto) (50-75) % Lymph % (Auto) (25-40) % [place]mer % (Auto) (3-14) % Eos % (Auto) (2-4) % Baso % (Auto) (0-2) % Neut # (Auto) (5647-1203) /uL Lymph # (Auto) (8990-0840) /uL Gilmer # (Auto) (0-900) /uL Eos # (Auto) (0-450) /uL Baso # (Auto) (0-100) /uL PT (10.1-12.7) SECONDS INR (0.9-1.3) APTT (26.4-36.2) SECONDS Sodium (137-145) mmol/L Potassium (3.4-5.1) mmol/L Chloride (98-107) mmol/L Carbon Dioxide (22-32) mmol/L BUN (7-17) mg/dL Creatinine (0.52-1.04) mg/dL Estimated GFR (>60) mL/min BUN/Creatinine Ratio (6-22) Glucose (80-110) mg/dL Calcium (8.4-10.2) mg/dL Total Bilirubin (0.2-1.3) mg/dL AST (14-36) IU/L ALT (<35) IU/L Alkaline Phosphatase (38-126) U/L Total Creatine Kinase (30-135) U/L CK-MB (CK-2) CK-MB (CK-2) Rel Index Troponin I (0.01-0.034) ng/mL Total Protein (6.3-8.2) g/dL Albumin (3.5-5.0) g/dL Globulin (1.7-4.1) g/dL Albumin/Globulin Ratio (1.0-2.8) Lipase (23-300) U/L Urine RBC 0-1/hpf (0-5/HPF) Urine WBC None seen (0-5/HPF) Urine Bacteria None seen (None) Ur Culture Indicated? Cult not indicated SARS-CoV-2 (PCR) Negative (Negative) Point of Care Testing Test Results Not applicable Urine Dip Bedside Urine Glucose Negative Bedside Urine Bilirubin - Negative Bedside Urine Ketone - Negative Urine Specific [place] 1.010 Bedside Urine Occult Blood + Bedside Urine pH 6.0 Bedside Urine Protein - Negative Bedside Urine Urobilinogen - Negative Bedside Urine Nitrite - Negative Bedside Urine Leukocytes - Negative Esterase ECG Data Attestation: I personally reviewed and interpreted this ECG as follows: Interpretation: Presentation EKG Atrial fibrillation Ventricular rate 92 Occasional PVC Normal QRS Normal QTC Post cardioversion EKG Sinus rhythm Ventricular rate is 64 Normal axis Normal QRS Normal QTC No ST T wave changes MDM Narrative Medical decision making narrative: Patient is on Coumadin. The last time she had her INR check she was therapeutic. She is therapeutic today. She also states that her symptoms started earlier this afternoon. We did discuss atrial fibrillation. She has never been in AFib in the past. We discussed options to include cardioversion verses rate control in the risks and benefits of these. Patient opted for cardioversion. She was sedated and cardioversion without issue as described above. Will have her continue to take all of her medications as directed and contact her primary doctor and inside sales professional for follow-up. She was given return precautions. She expressed understanding and agreement. Discharge Plan Departure Patient Disposition: Home Clinical Impression: Atrial fibrillation status post cardioversion Instructions: DI for Atrial Fibrillation Activity Restrictions/Additional Instructions: I do recommend that you continue to take all of your medications as directed. On Monday contact your primary doctor for a follow-up. Return to the emergency department for any new or worsening symptoms. Prescriptions: No Action zolpidem [Ambien] 10 mg Tablet 10 mg PO BEDTIME Qty: 0 0RF cetirizine 10 mg Capsule 10 mg PO DAILY Qty: 0 0RF Citrucel 500 mg Tablet 1,500 mg PO DAILY 0RF polyethylene glycol 3350 [Miralax] 17 gram/dose powder 17 g PO DAILY PRN0RF propranolol 60 mg Tablet 60 mg PO DAILY 0RF lorazepam 0.5 mg Tablet 0.5 mg PO DAILY PRN (Reason: Muscle Spasm/Anxiety) 0RF amlodipine 2.5 mg Tablet 2.5 mg PO DAILY 0RF zinc 100 mg Tablet 100 mg PO DAILY 0RF Probiotic 1 cap PO DAILY 0RF ipratropium bromide 42 mcg (0.06 %) spray,non-aerosol 2 spray INTRANASAL DAILY PRN0RF multivitamin Tablet 1 tab PO DAILY 0RF lisinopril 40 mg tablet 40 mg PO DAILY 0RF warfarin 4 mg tablet 4 mg PO DAILY 0RF pantoprazole [Protonix] 40 mg tablet,delayed release (DR/EC) 40 mg PO DAILY 0RF Referrals: Екатерина Jo MD [Primary Care Provider] -
[2021-07-17 22:02] LABS: Alanine Aminotransferase 31 IU/L (<35); Albumin 4.5 g/dL (3.5-5.0); Albumin Globulin Ratio 1.4 (1.0-2.8); Alkaline Phosphatase 54 U/L (38-126); Aspartate Aminotransferase 50 IU/L (14-36); Bilirubin Total 0.6 mg/dL (0.2-1.3); Blood Urea Nitrogen 16 mg/dL (7-17); Calcium 9.4 mg/dL (8.4-10.2); Carbon Dioxide 31 mmol/L (22-32); Chloride 103 mmol/L (98-107); Creatine Kinase 34 U/L (30-135); Estimated Glomerular Filt Rate 56.9 mL/min (>60); Globulin 3.2 g/dL (1.7-4.1); Glucose 117 mg/dL (80-110); HEMOLYSIS < 15 (0-50); Lipase 236 U/L (23-300); Potassium 3.8 mmol/L (3.4-5.1); Sodium 139 mmol/L (137-145); Total Protein 7.7 g/dL (6.3-8.2)
[2021-07-17 22:06] LABS: Bacteria Urine None Seen; Culture Indicated Urine Cult Not Indicated; RBC Urine 0-1/HPF (0-5/HPF); WBC Urine None Seen (0-5/HPF)
[2021-07-17 22:14] LABS: Troponin I < 0.012 ng/mL (0.01-0.034)
[2021-07-18] VITALS (9 sets, daily range): BP systolic 125–148; BP diastolic 56–101; PULSE 63–154; RESP 16–28; O2SAT 95–100
[2021-07-18 00:43] LABS: COVID19 -Nasal RAPID Negative (Negative)
[2021-07-18] MEDS: propofoL 200 MG/20 ML VIAL 100 MG IV (00:50)
== END 2021-07-18 01:46 | disposition home or self-care (01) ==
PROVIDERS: Emergency Provider Emergency Medicine; PCP Family Medicine
DX: I48.91 Unspecified atrial fibrillation (principal); Z79.01 Long term (current) use of anticoagulants; Z20.822 Contact with and (suspected) exposure to COVID-19
CPT/HCPCS: 36415; 80053; 81003; 81015; 82550; 83690; 84484; 85025; 85610; 85730; 87635; 92960; 93005; 99152; 99284; 99285; C9803; J2704

== ENCOUNTER 2021-07-24 15:44 | Emergency (ER) | payer MEDICARE, OTHER, SELFPAY ==
[2021-07-24] VITALS (8 sets, daily range): BP systolic 142–185; BP diastolic 63–89; PULSE 58–65; RESP 14–18; TEMP 36.7; O2SAT 98–100; BMI 22.2
--- NOTE | 2021-07-24 17:01 | ED_ITS ---
HPI - Back Pain/Injury <Juvencio Campoverde PA-C - Last Filed: 07/24/21 20:06> General Chief Complaint: Back Pain/Injury Stated Complaint: back pain, fell picking up sticks Time Seen by Provider: 07/24/21 15:53 Source: patient and EMS History of Present Illness HPI Narrative: Patient is an 81-year-old female presenting to the emergency department today via ambulance for an evaluation of low back pain. Patient explains that approximately 1200 today she was doing yard work and collecting branches into a trash barrel. She states that she had her feet planted and was turning to the left to put the sticks in a barrel when she felt a pulling sensation followed by a pop in her low back. She states that she began to experience right-sided low back pain that was radiating into her right hip. Pain seemed to worsen after she attempted to lie down and apply heating pad to the painful area. She states that she called the ambulance when she was unable to get up from the chair. She notes that she was provided with 20 mg of IV ketamine EN route to the emergency department and explains that that helped alleviate her pain. Patient states that she does not want any opioid pain medication as she is ?allergic to all opioids?. No fever, chills, chest pain, cough, shortness of breath, nausea, vomiting, diarrhea, dysuria, hematuria, abdominal pain, constipation, numbness and tingling in the lower extremities, saddle anesthesia, urinary incontinence, fecal incontinence, trauma to the low back, or any other concerning symptoms reported. Patient states she did not fall as a result of the injury. No further concerns were voiced at this time. Related Data Home Medications Medication Instructions Recorded Confirmed cetirizine 10 mg capsule 10 mg PO DAILY #0 12/19/09 06/02/21 zolpidem 10 mg tablet (Ambien) 10 mg PO BEDTIME #0 12/19/09 06/02/21 methylcellulose (laxative) 500 mg 1,500 mg PO DAILY 08/10/20 06/02/21 tablet (Citrucel) Probiotic 1 cap PO DAILY 09/01/20 06/02/21 amlodipine 2.5 mg tablet 2.5 mg PO DAILY 09/01/20 06/02/21 lorazepam 0.5 mg tablet 0.5 mg PO DAILY PRN 09/01/20 06/02/21 propranolol 60 mg tablet 60 mg PO DAILY 09/01/20 06/02/21 zinc 100 mg tablet 100 mg PO DAILY 09/01/20 06/02/21 ipratropium bromide 42 mcg (0.06 2 spray INTRANASAL DAILY PRN 02/12/21 06/02/21 %) nasal spray lisinopril 40 mg tablet 40 mg PO DAILY 02/12/21 06/02/21 multivitamin 1 tab PO DAILY 02/12/21 06/02/21 pantoprazole 40 mg tablet,delayed 40 mg PO DAILY 02/12/21 06/02/21 release (Protonix) polyethylene glycol 3350 17 17 g PO DAILY PRN 02/12/21 06/02/21 gram/dose oral powder (Miralax) warfarin 4 mg tablet 4 mg PO DAILY 02/12/21 06/02/21 Previous Rx's Medication Instructions Recorded baclofen 10 mg tablet 10 mg PO TID #30 tab 07/24/21 Allergies Allergy/AdvReac Type Severity Reaction Status Date / Time Sulfa (Sulfonamide Allergy Severe ITCHING SOB Verified 02/12/21 08:25 Antibiotics) [SULFA (SULFONAMIDE ANTIBIOTICS)] chocolate flavor Allergy tightness Verified 02/12/21 08:25 Opioids - Morphine Analogues Allergy Verified 02/12/21 08:25 spinach Allergy Rash Verified 02/12/21 08:25 fentanyl AdvReac Severe trouble Verified 02/12/21 08:25 waking up, vomitting, spaciness hydrocodone [HYDROCODONE] AdvReac Severe Nausea Verified 02/12/21 08:25 hydromorphone [From Dilaudid] AdvReac Severe confusion, Verified 02/12/21 08:25 vomitting meperidine [MEPERIDINE] AdvReac Severe dizzy Verified 02/12/21 08:25 vomitting amoxicillin [From Augmentin] AdvReac Intermediate Gastrointestinal Verified 02/12/21 08:25 Upset cephalexin [From Keflex] AdvReac Intermediate ITCHING Verified 02/12/21 08:25 rash codeine [CODEINE] AdvReac Intermediate ABDOMINAL Verified 02/12/21 08:25 PAIN morphine [MORPHINE] AdvReac Intermediate Vomiting Verified 02/12/21 08:25 prochlorperazine AdvReac Intermediate Hallucinati Verified 02/12/21 08:25 [PROCHLORPERAZINE] ng ciprofloxacin [From Cipro] AdvReac Gastrointestinal Verified 02/12/21 08:25 Upset clavulanic acid AdvReac Verified 02/12/21 08:25 [From Augmentin] Review of Systems <Juvencio Campoverde PA-C - Last Filed: 07/24/21 20:06> Constitutional Constitutional: Denies chills, Denies fatigue, Denies fever(s), Denies frequent falls, Denies lethargy and Denies weakness Eyes Eyes: Denies loss of vision ENT Ears, Nose, Mouth, and Throat: Denies dizziness and Denies neck pain Cardiovascular Cardiovascular: Denies chest pain, Denies irregular heart rhythm, Denies lightheadedness, Denies palpitations, Denies dyspnea, Denies dyspnea on exertion and Denies orthopnea Respiratory Respiratory: Denies cough, Denies dyspnea, Denies dyspnea on exertion and Denies wheezing Gastrointestinal Gastrointestinal: Denies abdominal pain, Denies change in bowel habits, Denies diarrhea, Denies nausea and Denies vomiting Genitourinary Genitourinary: Denies hematuria, Denies flank pain, Denies urinary incontinence and Denies urinary urgency Musculoskeletal Musculoskeletal: Reports back pain (Right-sided low back pain), Denies muscle weakness, Denies neck pain, Denies numbness and Denies tingling Integumentary/Breasts Skin/Breast: Denies pruritus, Denies erythema, Denies rash and Denies wounds Neurologic Neurologic: Denies behavioral changes, Denies confusion, Denies dizziness, Denies frequent falls, Denies loss of vision, Denies numbness, Denies tingling and Denies weakness Psychiatric Psychiatric: Denies behavioral changes and Denies confusion Endocrine Endocrine: Denies fatigue and Denies palpitations Allergic/Immunologic Allergic/Immunologic: Denies wheezing Patient History <Juvencio Campoverde PA-C - Last Filed: 07/24/21 20:06> Medical History Arthritis Degenerative joint disease (DJD) of hip Facet arthropathy, cervical HNP (herniated nucleus pulposus), cervical Hypertension Pulmonary embolism Surgical History History of cholecystectomy History of hip replacement Family History Mother Hypertension Cervical cancer Father Emphysema lung Social History marital status: number of children: 2 household members: family and none education level: master's degree occupational status: previously employed 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 Well-developed patient, in mild distress. HEAD: Atraumatic. Normocephalic. EYES: Pupils equal round and reactive. Extraocular motions intact. No scleral icterus. No injection or drainage. ENT: Nose without bleeding, purulent drainage. Throat without erythema, tonsillar hypertrophy or exudate. Airway patent. NECK: Trachea midline. Non tender CARDIOVASCULAR: Regular rate and rhythm without murmurs, gallops, or rubs. RESPIRATORY: Clear to auscultation. Breath sounds equal bilaterally. No wheezes, rales, or rhonchi. GASTROINTESTINAL: Abdomen soft, non-tender, nondistended. EXTREMITIES: No edema or joint tenderness. MUSCULOSKELETAL: Tenderness to palpation over the right paraspinal muscles in the area of L3-L4, L4-L5. No deformity or crepitance appreciated. No significant overlying erythema or ecchymosis noted. Good sensation light touch appreciated throughout the bilateral lower extremities. Gross motor function intact throughout the bilateral lower extremities. No midline L-spine tenderness. BACK: Nontender without deformity or crepitance. No flank tenderness. NEURO: AOx3. SKIN: No rash or erythema of visible areas Initial Vital Signs Initial Vital Signs: Vital Signs Temperature 98.0 F 07/24/21 16:03 Pulse Rate 64 07/24/21 16:03 Respiratory Rate 18 07/24/21 16:03 Blood Pressure 185/89 H 07/24/21 16:03 Pulse Oximetry 99 07/24/21 16:03 Course <Juvencio Campoverde PA-C - Last Filed: 07/24/21 20:06> Course Course Narrative: Topical lidocaine patch applied to the right low back, 10 mg PO back within administered. On re-evaluation patient states that she is still in slight pain. She agreed to treatment with gabapentin. She states at this time she is comfortable being discharged home she has a friend that will be able to pick her up from hospital. Orders Ordered: Discontinued Medications Baclofen (Baclofen 10 Mg Tablet) 10 mg PO NOW ONE Stop: 07/24/21 16:50 Last Admin: 07/24/21 17:11 Dose: 10 mg Documented by: JESSI Cyclobenzaprine HCl (Cyclobenzaprine 10 Mg Prepack) 1 bottle [facility] Last Admin: 07/24/21 18:28 Dose: 1 bottle Documented by: JESSI Gabapentin (Gabapentin 300 Mg Capsule) 300 mg PO NOW ONE Stop: 07/24/21 17:56 Last Admin: 07/24/21 18:29 Dose: 300 mg Documented by: JESSI Lidocaine (Lidocaine Patch 1 Each Adh..Patch) 1 each TOP NOW ONE Stop: 07/24/21 16:50 Last Admin: 07/24/21 17:13 Dose: 1 each Documented by: JESSI Vital Signs Vital signs: Vital Signs - 8 hr 07/24/21 16:03 07/24/21 16:32 07/24/21 16:33 Temperature 98.0 F Pulse Rate 64 61 61 Respiratory Rate 18 Blood Pressure 185/89 H 184/81 H Pulse Oximetry 99 100 100 07/24/21 16:41 07/24/21 17:00 07/24/21 17:01 Temperature Pulse Rate 62 62 65 Respiratory Rate Blood Pressure 179/77 H 143/66 H Pulse Oximetry 100 99 99 07/24/21 17:30 07/24/21 18:00 Temperature Pulse Rate 60 58 L Respiratory Rate 14 Blood Pressure 151/69 H 142/63 H Pulse Oximetry 99 98 MDM - Back Pain/Injury <Juvencio Campoverde PA-C - Last Filed: 07/24/21 20:06> MDM Narrative Medical decision making narrative: Differential diagnosis to consider but not limited to musculoskeletal low back pain versus muscle strain versus disc herniation versus disc protrusion versus cauda equina syndrome. Physical examination was reassuring as it does appear that the discomfort that she is experiencing is musculoskeletal in nature. Discussed plan to send patient home with a prescription of muscle relaxers as she is unable to take any opioid pain medications. I encouraged the patient to continue taking Tylenol as needed for pain management and encouraged her to use topical Voltaren gel over the painful area to alleviate any discomfort. She expresses understanding and agrees to plan. She states at this time she is comfortable being discharged home stable for discharge. Strict return precautions were discussed with the patient prior to discharge. Discharge Plan Departure Patient Disposition: Home Clinical Impression: Acute right-sided low back pain Instructions: DI for Low Back Pain Activity Restrictions/Additional Instructions: *You have been diagnosed with right-sided low back pain *What to do: *Please continue to take your regular medications as directed. [X] New medication prescriptions sent to your pharmacy: [facility] - Baclofen [ ] New medication written as a paper prescription [ ] No new medications given You were evaluated in the emergency department today for right-sided low back pain. Physical examination was reassuring as it appears it the discomfort the ureter experiencing is musculoskeletal. I have prescribed view a muscle relaxer (baclofen) and nerve pain medication (gabapentin) to help alleviate your discomfort. I recommend he continue taking Tylenol as needed for pain management. You can also try applying a topical Voltaren gel to the painful area, this is a topical nonsteroidal anti-inflammatory and should not have any interaction with your warfarin. Please follow-up with your primary care provider within the next 2-3 days for further evaluation. Do not hesitate to return to the emergency department if you experience worsening back pain, numbness and tingling in the lower extremities, loss of bowel or bladder control, fever, or any other concerning symptoms. *Please follow up with your primary care provider in 2-3 days, call for an appointment. Let them know you were seen in the Emergency Department and that we ask that you be seen in follow up. We will electronically transmit a record of today's note if your PCP is in our system *If you do not have a primary care provider please contact the [facility] Resource line at [phone]. They will ask some questions about your medical history and help get you set up with a doctor in the community. *Return to Emergency Department if you should have any new, worsening or concerning symptoms, such as fever greater than 101 F, shaking chills, worsening pain, persistent vomiting or other bothersome symptoms. Prescriptions: New baclofen 10 mg tablet 10 mg PO TID Qty: 30 0RF No Action zolpidem [Ambien] 10 mg Tablet 10 mg PO BEDTIME Qty: 0 0RF cetirizine 10 mg Capsule 10 mg PO DAILY Qty: 0 0RF Citrucel 500 mg Tablet 1,500 mg PO DAILY 0RF polyethylene glycol 3350 [Miralax] 17 gram/dose powder 17 g PO DAILY PRN0RF propranolol 60 mg Tablet 60 mg PO DAILY 0RF lorazepam 0.5 mg Tablet 0.5 mg PO DAILY PRN (Reason: Muscle Spasm/Anxiety) 0RF amlodipine 2.5 mg Tablet 2.5 mg PO DAILY 0RF zinc 100 mg Tablet 100 mg PO DAILY 0RF Probiotic 1 cap PO DAILY 0RF ipratropium bromide 42 mcg (0.06 %) spray,non-aerosol 2 spray INTRANASAL DAILY PRN0RF multivitamin Tablet 1 tab PO DAILY 0RF lisinopril 40 mg tablet 40 mg PO DAILY 0RF warfarin 4 mg tablet 4 mg PO DAILY 0RF pantoprazole [Protonix] 40 mg tablet,delayed release (DR/EC) 40 mg PO DAILY 0RF Referrals: Екатерина Jo MD [Primary Care Provider] -
[2021-07-24] MEDS: BACLOFEN 10 MG TABLET PO (17:11)
[2021-07-24] MEDS: LIDOCAINE PATCH 1 EACH ADH..PATCH TOP (17:13)
[2021-07-24] MEDS: CYCLOBENZAPRINE 10 MG PREPACK 1 BOTTLE MISC (18:28)
[2021-07-24] MEDS: GABAPENTIN 300 MG CAPSULE PO (18:29)
== END 2021-07-24 18:55 | disposition home or self-care (01) ==
PROVIDERS: Emergency Provider Physician Assistant; PCP Family Medicine
DX: M54.50 Low back pain, unspecified (principal)
CPT/HCPCS: 99283

== ENCOUNTER → 2021-08-09 09:44 | Outpatient (CLI) | payer MEDICARE, OTHER, SELFPAY ==
--- NOTE | 2021-08-20 14:27 | PM.CARDMON.1 ---
Bending Frame Operator Report Referral & Results Date Patient Seen: 08/09/21 Requesting provider: Екатерина Jo Indication: Atrial fibrillation Duration of monitoring (days): 7 Diary information: There were 7 patient triggered events and 7 patient diary entries Patient triggered events were associated with (within 45 seconds) sinus rhythm and PACs Patient diary events were associated with (within 45 seconds) sinus rhythm, PACs, and PVCs Data: Minimum heart rate identified was 42 beats per minute at 03:46 on 08/16/2021 Maximum sinus heart rate was 104 beats per minute at 09:50 on 08/14/2021 Maximum overall heart rate was 171 beats per minute at 18:47 on 08/09/2021 during a run of SVT Less than 1% of identified beats were ventricular or supraventricular ectopic in origin, which would classify them as rare. There were 25 runs of SVT with the fastest being the 5 beat run at a rate of 171 beats per minute as above, the longest lasting 15 beats. 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
== END ==
PROVIDERS: PCP Family Medicine; Referring Provider Family Medicine; Visit Provider Family Medicine
DX: I48.91 Unspecified atrial fibrillation (principal)
CPT/HCPCS: 85610; 93242; 93244

== ENCOUNTER → 2021-08-09 10:41 | Outpatient (ROUT) | payer MEDICARE, OTHER, SELFPAY ==
[2021-08-09 12:12] LABS: INR 2.3 (0.9-1.3); Prothrombin Time 26.5 SECONDS (10.1-12.7)
== END ==
PROVIDERS: PCP Family Medicine; Visit Provider Family Medicine
DX: Z79.01 Long term (current) use of anticoagulants (principal)
CPT/HCPCS: 85610

== ENCOUNTER → 2021-09-06 10:44 | Outpatient (ROUT) | payer MEDICARE, OTHER, SELFPAY ==
[2021-09-06 11:03] LABS: INR 3.2 (0.9-1.3); Prothrombin Time 36.3 SECONDS (10.1-12.7)
== END ==
PROVIDERS: PCP Family Medicine; Visit Provider Family Medicine
DX: Z79.01 Long term (current) use of anticoagulants (principal)
CPT/HCPCS: 85610

== ENCOUNTER → 2021-09-06 | Outpatient (CLI) | payer MEDICARE, OTHER, SELFPAY ==
--- NOTE | 2021-09-06 16:04 | DI.ECHO.S_ITS ---
[place] [facility] +---------+ : : [address] : : : : [id number] : : : : Phone: [phone] Echocardiogram Report + + :Name: NORY MAGAÑA Study Date: 09/06/2021 Height: 66 in : :[facility] ReadingLocation: Weight: 138 lb : : Gender: Female BSA: 1.7 m2 : :: 1940 Age: 81 yrs BP: 171/91 mmHg: :Reason For Study: Atrial fibrillation : :Ordering Physician: CHRIS, : :LAILA Performed By: Shaheed Mcgraw : :Referring: LAILA PEREZ : + + Interpretation Summary The ejection fraction is estimated to be 60-65%. There has been no significant change since the previous exam. Visually there appears to be biatrial enlargement although the measurements suggested that they are within normal limits. There is mild mitral regurgitation. Compared to the prior echo study, there has been a decrease in the severity of mitral regurgitation. There is moderate to severe tricuspid regurgitation. The right ventricular systolic pressure is estimated to be at least 41 mmHg based on an estimated right atrial pressure of 3 mm Hg. Compared to the prior echo exam, there has been no change in TR severity. Procedure: A two-dimensional transthoracic echocardiogram with color flow and Doppler was performed. The study quality was technically adequate. Comparison is made with the echocardiogram of 11/30/2018. Left Ventricle: The left ventricle is normal in size and wall thickness. Left ventricular systolic function is normal. The ejection fraction is estimated to be 60-65%. There has been no significant change since the previous exam. There are no focal wall motion abnormalities. Diastolic function could not be accurately assessed due to contradictory data. Right Ventricle: The right ventricle is normal in size and function. Atria: Visually there appears to be biatrial enlargement although the measurements suggested that they are within normal limits. The interatrial septum grossly appears intact with no obvious evidence for an atrial septal defect. Mitral Valve: There is mild mitral annular calcification. There is mild mitral regurgitation. Compared to the prior echo study, there has been a decrease in the severity of mitral regurgitation. Aortic Valve: There is mild aortic valve sclerosis. No aortic regurgitation is present. Tricuspid Valve: The tricuspid valve is normal in structure and function. There is moderate to severe tricuspid regurgitation. The right ventricular systolic pressure is estimated to be at least 41 mmHg based on an estimated right atrial pressure of 3 mm Hg. Compared to the prior echo exam, there has been no change in TR severity. Pulmonic Valve: The pulmonic valve is not well visualized. There is no pulmonic valvular regurgitation. Great Vessels: The aortic root is normal size. The ascending aorta could not be visualized. The IVC is of normal diameter and collapses greater than 50% with a sniff. This suggests a low right atrial pressure of 3 mm Hg. Pericardium/ Pleura There is no pericardial effusion. There is no pleural effusion. MMode/2D Measurements & Calculations LVIDd: 4.6 cm LVOT diam: 2.0 cm LVIDs: 3.1 cm Ao root diam: 2.6 cm FS: 32.6 % IVSd: 0.70 cm LVPWd: 0.70 cm LV keita. diameter/BSA (cm/m^2): 2.7 LV sys. diameter/BSA (cm/m^2): 1.8 LA dimension: 3.9 cm RA long axis: 5.8 cm LA A2 area: 17.1 cm2 LA A4 area: 19.7 cm2 LA length (vol): 5.4 cm LA vol: 52.7 ml LA vol index: 30.8 ml/m2 LA A2C-A/L_phl: 20.0 cm2 TAPSE_phl: 2.7 cm Doppler Measurements & Calculations Ao V2 max: 100.0 cm/sec LVOT Max Jd: 85.5 cm/sec Ao V2 mean: 70.6 cm/sec LV V1 max P.9 mmHg Ao max P.0 mmHg LV V1 VTI: 20.1 cm Ao mean P.0 mmHg ERNA(I,D): 2.8 cm2 Ao V2 VTI: 22.3 cm ERNA(V,D): 2.7 cm2 sev ratio: 0.90 ERNA indexed to BSA (cm^2/m^2): 1.7 MV E max jd: 52.7 cm/sec TR max jd: 308.0 cm/sec MV A max jd: 58.7 cm/sec TR max P.9 mmHg MV E/A: 0.90 Med Peak E' Jd: 6.3 cm/sec E/E' med: 8.4 Lat Peak E' Jd: 6.9 cm/sec E/E' lat: 7.7 E/e' average: 8.0 MV dec time: 0.28 sec SV(LVOT): 63.1 ml AV VR_phl: 0.86 ERNA(VTI)/BSA_phl: 1.6 MV P1/2t-pr_phl: 82.0 msec Reading Physician:09:46 AM
== END ==
PROVIDERS: PCP Family Medicine; Referring Provider Family Medicine; Visit Provider Family Medicine
DX: I48.0 Paroxysmal atrial fibrillation (principal); I08.3 Combined rheumatic disorders of mitral, aortic and tricuspid valves; Z79.01 Long term (current) use of anticoagulants
CPT/HCPCS: 85610; 93306

== ENCOUNTER → 2021-09-13 11:39 | Outpatient (ROUT) | payer MEDICARE, OTHER, SELFPAY ==
[2021-09-13 12:02] LABS: INR 2.1 (0.9-1.3); Prothrombin Time 24.6 SECONDS (10.1-12.7)
== END ==
PROVIDERS: PCP Family Medicine; Visit Provider Family Medicine
DX: Z79.01 Long term (current) use of anticoagulants (principal)
CPT/HCPCS: 85610

== ENCOUNTER → 2021-09-20 10:49 | Outpatient (ROUT) | payer MEDICARE, OTHER, SELFPAY ==
[2021-09-20 11:41] LABS: INR 2.2 (0.9-1.3); Prothrombin Time 24.7 SECONDS (10.1-12.7)
== END ==
PROVIDERS: PCP Family Medicine; Visit Provider Family Medicine
DX: Z79.01 Long term (current) use of anticoagulants (principal)
CPT/HCPCS: 85610

== ENCOUNTER → 2021-10-06 09:25 | Outpatient (CLI) | payer MEDICARE, OTHER, SELFPAY ==
[2021-10-06 09:43] LABS: INR 2.8 (0.9-1.3); Prothrombin Time 33.2 SECONDS (10.1-12.7)
[2021-10-06 11:35] LABS: COVID19 -Nasal RAPID Negative (Negative)
== END ==
PROVIDERS: PCP Family Medicine; Visit Provider Family Medicine
DX: Z79.01 Long term (current) use of anticoagulants (principal); Z20.822 Contact with and (suspected) exposure to COVID-19
CPT/HCPCS: 85610; 87635; C9803

== ENCOUNTER → 2021-10-07 08:24 | Outpatient (CLI) | payer MEDICARE, OTHER, SELFPAY ==
--- NOTE | 2021-10-17 13:52 | PM.PFT.1 ---
Pulmonary Function Test Referral & Results Date Patient Seen: 10/07/21 Requesting provider: Екатерина Jo Results: The spirometry demonstrates an FVC of 2.75 L which is 101% of predicted. The FEV1 was measured at 2.05 L which is 102% of predicted. The FEV1/FVC ratio was 75 which is 102% of predicted. Following the administration of bronchodilator there was no appreciable change to above normal numbers Lung volumes show an SVC of 2.65 L which is 94% of predicted. The diffusing capacity was measured at 13.70 which is 50% of predicted. No hemoglobin value was provided, so no correction for potential anemia could be made, if appropriate. The maximum voluntary ventilation was reduced Interpretation: This study demonstrates normal spirometry however there is a significant reduction diffusing capacity suggesting significant disease at the capillary alveolar level The maximum voluntary ventilation is also reduced which in the absence of abnormalities of spirometry suggest the presence of neuromuscular disease Clinical correlation suggested
== END ==
PROVIDERS: PCP Family Medicine; Referring Provider Family Medicine; Visit Provider Family Medicine
DX: R06.02 Shortness of breath (principal); J98.8 Other specified respiratory disorders
CPT/HCPCS: 94010; 94060; 94726; 94729

== ENCOUNTER → 2021-10-22 10:10 | Outpatient (ROUT) | payer MEDICARE, OTHER, SELFPAY ==
[2021-10-22 11:27] LABS: INR 2.9 (0.9-1.3); Prothrombin Time 33.3 SECONDS (10.1-12.7)
== END ==
PROVIDERS: PCP Family Medicine; Visit Provider Family Medicine
DX: Z79.01 Long term (current) use of anticoagulants (principal)
CPT/HCPCS: 85610

== ENCOUNTER → 2021-10-29 08:40 | Outpatient (ROUT) | payer MEDICARE, OTHER, SELFPAY ==
[2021-10-29 08:55] LABS: INR 3.3 (0.9-1.3); Prothrombin Time 37.6 SECONDS (10.1-12.7)
== END ==
PROVIDERS: PCP Family Medicine; Visit Provider Family Medicine
DX: Z79.01 Long term (current) use of anticoagulants (principal)
CPT/HCPCS: 85610

== ENCOUNTER → 2021-11-05 11:24 | Outpatient (ROUT) | payer MEDICARE, OTHER, SELFPAY ==
[2021-11-05 12:20] LABS: INR 2.2 (0.9-1.3); Prothrombin Time 24.4 SECONDS (10.1-12.7)
== END ==
PROVIDERS: PCP Family Medicine; Visit Provider Family Medicine
DX: Z79.01 Long term (current) use of anticoagulants (principal)
CPT/HCPCS: 85610

== ENCOUNTER → 2021-11-10 11:16 | Outpatient (CLI) | payer MEDICARE, OTHER, SELFPAY ==
--- NOTE | 2021-11-10 | DI.CT.S_ITS ---
PROCEDURE: CT CHEST W CON INDICATIONS: Interstitial pulmonary disease, unspecified TECHNIQUE: After the administration of intravenous contrast, 5 mm thick sections acquired from the pulmonary apices to the posterior costophrenic angles. 1 mm axial lung, 5 mm thick coronal and sagittal reformats and 7 mm axial MIP were acquired. For radiation dose reduction, the following was used: automated exposure control, adjustment of mA and/or kV according to patient size. COMPARISON: None. FINDINGS: Image quality: Excellent. Lungs and pleura: No acute air space opacities. 5 mm nodule within the lateral aspect of the minor fissure (series 3, image 117). There is a subpleural nodule within the right upper lobe posteriorly with spiculated margins measuring 12 mm diameter (series 3, image 101). Subpleural scarring within the right lower lobe posteriorly and inferiorly. Subpleural 4 mm nodule within the left lower lobe laterally (series 3, image 222). No pleural effusions or pneumothorax. Central and peripheral airways are patent and normal in caliber. Mediastinum: Heart size is normal. There is mild calcification of the coronary vasculature. No pericardial effusion. No mediastinal or hilar adenopathy by size criteria. Thoracic aorta and central pulmonary arteries are normal in size. Esophagus is normal in caliber. No hiatal hernia. Bones and chest wall: No suspicious bony lesions. No vertebral body compression fractures. No axillary or supraclavicular adenopathy by size criteria. Thyroid gland demonstrates small bilateral nodules, largest of which is in the right lobe laterally measuring 8 mm diameter. . Abdomen: Visualized upper abdominal solid organs appear normal. Upper abdominal bowel loops are normal in caliber. IMPRESSION: 1. Indeterminate right lower lobe pulmonary nodule. Initial further assessment with PET-CT examination is recommended. 2. Left lower lobe and minor fissure nodules. Follow-up is recommended as below. 3. Coronary artery disease. 4. Bilateral thyroid nodules as described above. Dictated by: Todd Johnson M.D. on 11/10/2021 at 13:18 Approved by: Todd Johnson M.D. on 11/10/2021 at 13:21
== END ==
PROVIDERS: PCP Family Medicine; Referring Provider Family Medicine; Visit Provider Family Medicine
DX: J84.9 Interstitial pulmonary disease, unspecified (principal); R91.1 Solitary pulmonary nodule; I25.10 Atherosclerotic heart disease of native coronary artery without angina pectoris; E04.2 Nontoxic multinodular goiter
CPT/HCPCS: 71260; Q9967

== ENCOUNTER → 2021-11-12 08:42 | Outpatient (ROUT) | payer MEDICARE, OTHER, SELFPAY ==
[2021-11-12 09:00] LABS: INR 2.1 (0.9-1.3); Prothrombin Time 23.7 SECONDS (10.1-12.7)
== END ==
PROVIDERS: PCP Family Medicine; Visit Provider Family Medicine
DX: Z79.01 Long term (current) use of anticoagulants (principal)
CPT/HCPCS: 85610

== ENCOUNTER → 2021-11-26 08:30 | Outpatient (ROUT) | payer MEDICARE, OTHER, SELFPAY ==
[2021-11-26 08:36] LABS: INR 2.9 (0.9-1.3); Prothrombin Time 33.5 SECONDS (10.1-12.7)
== END ==
PROVIDERS: PCP Family Medicine; Visit Provider Family Medicine
DX: Z79.01 Long term (current) use of anticoagulants (principal)
CPT/HCPCS: 85610

== ENCOUNTER → 2021-12-01 12:47 | Outpatient (CLI) | payer MEDICARE, OTHER, SELFPAY ==
--- NOTE | 2021-12-01 12:51 | DI.RAD.S_ITS ---
PROCEDURE: XR CHEST 2V INDICATIONS: COUGH TECHNIQUE: 2 views of the chest were acquired. COMPARISON: [facility], CR, XR CHEST 2V, 03/12/2018, 11:17. FINDINGS: Surgical changes and devices: None. Lungs and pleura: Lungs are clear. No pleural effusions or pneumothorax. Mediastinum: Mediastinal contours are normal. Heart size is normal. Bones and chest wall: No suspicious bony abnormalities. Soft tissues appear unremarkable. IMPRESSION: No acute cardiopulmonary process demonstrated radiographically. Dictated by: Sudarshan Olivo M.D. on 12/01/2021 at 14:55 Approved by: Sudarshan Olivo M.D. on 12/01/2021 at 14:55
--- NOTE | 2021-12-01 12:52 | DI.US.S_ITS ---
PROCEDURE: US THYROID INDICATIONS: Nontoxic single thyroid nodule. TECHNIQUE: Real-time scanning was performed of the thyroid gland, with image documentation. COMPARISON: None. FINDINGS: Right: Thyroid lobe measures 4.5 x 1.6 x 1.2 cm, and demonstrates 2 nodules. Left: Thyroid lobe measures 4.3 x 1.4 x 1.3 cm, and demonstrates 2 nodules. Isthmus: 2.7 mm thick. Nodule number: 1 Location: Left mid thyroid Size: 0.8 x 0.5 x 0.8 cm. Composition: Predominantly solid Echogenicity: Isoechoic and anechoic Shape: wider than tall. Margins: Smooth Echogenic foci: Punctate Total points: 6 ACR TI-RADS category: 4 Recommendations: No follow-up necessary based on size. Nodule number: 2 Location: Left inferior thyroid Size: 1.0 x 0.5 x 0.8 cm. Composition: Predominantly cystic Echogenicity: Isoechoic Shape: wider than tall. Margins: Smooth Echogenic foci: None Total points: 1 ACR TI-RADS category: 2 Recommendations: No follow-up recommended. Nodule number: 3 Location: Right mid thyroid Size: 0.8 x 0.8 x 0.6 cm. Composition: Predominantly cystic Echogenicity: Isoechoic and anechoic Shape: wider than tall. Margins: Smooth Echogenic foci: 9 Total points: 1 ACR TI-RADS category: 2 Recommendations: No follow-up recommended. Nodule number: 4 Location: Right inferior thyroid Size: 1.0 x 0.8 x 0.6 cm. Composition: Solid and spongiform components Echogenicity: Isoechoic Shape: wider than tall. Margins: Irregular Echogenic foci: Punctate Total points: 7 ACR TI-RADS category: 5 Recommendations: Fine-needle aspiration. IMPRESSION: 1. Bilateral thyroid nodules as described above. Fine-needle aspiration of the right inferior nodule is recommended. Dictated by: Todd Johnson M.D. on 12/01/2021 at 14:38 Transcribed by: MACK on 12/01/2021 at 14:41 Approved by: Todd Johnson M.D. on 12/01/2021 at 17:00
== END ==
PROVIDERS: PCP Family Medicine; Referring Provider Family Medicine; Visit Provider Family Medicine
DX: E04.2 Nontoxic multinodular goiter (principal); R06.02 Shortness of breath; R05.9 Cough, unspecified
CPT/HCPCS: 71046; 76536

== ENCOUNTER → 2021-12-07 10:27 | Outpatient (CLI) | payer MEDICARE, OTHER, SELFPAY ==
--- NOTE | 2021-12-07 | DI.NM.S_ITS ---
PROCEDURE: NM DEMETRIA PERF SPECT R&S PHARM Rest and pharmacological stress myocardial perfusion SPECT with gated imaging and ejection fraction RADIOPHARMACEUTICAL: 12.1 mCi Tc-99m tetrafosmin IV at rest and 24.9 mCi Tc-99m tetrafosmin IV at peak effect of pharmacological stress. One -day-protocol was performed. INDICATIONS: Shortness of breath TECHNIQUE: Radiopharmaceutical was injected at peak stress test, and also at rest. SPECT images were obtained. SPECT myocardial perfusion images were displayed in short axis, horizontal long axis, and vertical long axis views. Gated images were reviewed using MarginPoint software. COMPARISON: None. CARDIAC STRESS: A pharmacologic stress test was performed under the supervision of an attending staff, using an infusion of lexiscan 0.4mg IVX1. Hemodynamic data: There is normal blood pressure and heart rate response to pharmacologic stress. Symptoms: The patient denied anginal chest pain. Aminophylline: none EKG: No diagnostic changes of ischemia; no ectopy. FINDINGS: Raw data: There is good myocardial uptake of radiotracer. No significant motion artifacts. Irei-vr-ugbiv ratio is 0.28 (normal is less than 0.38 for tetrafosmin tracer). Left ventricle function: Gated images demonstrate normal left ventricular wall thickening. No segmental wall motion abnormalities. No transient ischemic dilation; TID is 0.97 (normal less than 1.3). Left ventricle resting end diastolic volume is 58mL. Left ventricle stress ejection fraction is 90%; normal range is above 45%. Myocardial perfusion: There is normal distribution of activity in the right and left ventricular myocardium. No fixed or reversible perfusion defects. IMPRESSION: Low risk, normal pharmaceutical nuclear stress test 1) No perfusion evidence of ischemia or infarction. 2) Normal left ventricular size, wall motion, and systolic function (EF post stress 90%). 3) No ST changes with lexiscan. 4) No angina during the study. 5) Compared to the nuc stress done 03/06/2012, no significant change. Dictated by: Federico Nelson MD on 12/07/2021 at 17:11 Approved by: Federico Nelson MD on 12/07/2021 at 17:13
[2021-12-07 13:43] LABS: COVID19 -Nasal RAPID Negative (Negative)
--- NOTE | 2021-12-07 15:19 | PM.TREADMILL ---
Cardiac Stress Test Report Referral & Results Date Patient Seen: 12/07/21 Time Patient Seen: 15:19 Requesting provider: Екатерина Jo Indication: Dyspnea Rest ECG: Sinus rhythm Procedure Note: After Lexiscan injection, had minimal dyspnea, no chest discomfort No significant ST changes after Lexiscan injection Rare PVCs and couplets Impression: Normal Lexiscan stress test Please note: Actual ECG tracings can be found in the PACS system.
== END ==
PROVIDERS: PCP Family Medicine; Referring Provider Family Medicine; Visit Provider Family Medicine
DX: R06.02 Shortness of breath (principal); R06.00 Dyspnea, unspecified; Z20.822 Contact with and (suspected) exposure to COVID-19
CPT/HCPCS: 78452; 87635; 93017; A9502; J2785

== ENCOUNTER → 2021-12-10 10:28 | Outpatient (ROUT) | payer MEDICARE, OTHER, SELFPAY ==
[2021-12-10 10:53] LABS: INR 2.9 (0.9-1.3); Prothrombin Time 33.2 SECONDS (10.1-12.7)
== END ==
PROVIDERS: PCP Family Medicine; Visit Provider Family Medicine
DX: Z79.01 Long term (current) use of anticoagulants (principal)
CPT/HCPCS: 85610

== ENCOUNTER → 2021-12-23 14:11 | Outpatient (CLI) | payer MEDICARE, OTHER, SELFPAY ==
--- NOTE | 2021-12-23 14:13 | DI.US.S_ITS ---
PROCEDURE: US SOFT TISSUE HEAD AND NECK INDICATIONS: Nontoxic single thyroid nodule TECHNIQUE: Real-time scanning was performed of the thyroid region for parathyroid gland localization, with image documentation. COMPARISON: [facility], US, US THYROID, 12/01/2021, 13:05. FINDINGS: Limited examination of thyroid gland again shows 1 x 0.6 x 0.5 cm solid hypoechoic nodule in lower pole of right thyroid lobe compared to 1 x 0.8 x 0.6 cm in size on previous study. This nodule is in close proximity to adjacent right carotid artery and internal jugular vein. IMPRESSION: The suspicious nodule in lower pole right thyroid lobe is too small to safely perform fine-needle aspiration on. Recommend follow-up ultrasound in 6-12 months to monitor the size of the nodule. Dictated by: Alessio Ruelas M.D. on 12/23/2021 at 17:33 Approved by: Alessio Ruelas M.D. on 12/23/2021 at 17:35
== END ==
PROVIDERS: PCP Family Medicine; Referring Provider Family Medicine; Visit Provider Family Medicine
DX: E04.1 Nontoxic single thyroid nodule (principal)
CPT/HCPCS: 76536

== ENCOUNTER → 2022-01-20 09:28 | Outpatient (ROUT) | payer MEDICARE, OTHER, SELFPAY ==
[2022-01-20 09:44] LABS: INR 3.1 (0.9-1.3); Prothrombin Time 35.9 SECONDS (10.1-12.7)
== END ==
PROVIDERS: PCP Family Medicine; Visit Provider Family Medicine
DX: Z79.01 Long term (current) use of anticoagulants (principal)
CPT/HCPCS: 85610

== ENCOUNTER → 2022-01-24 10:20 | Outpatient (CLI) | payer MEDICARE, OTHER, SELFPAY ==
--- NOTE | 2022-01-24 | DI.MG.S_ITS ---
BILATERAL DIGITAL DIAGNOSTIC MAMMOGRAM 3D/2D SHORT-TERM FOLLOW-UP: 01/24/2022 CLINICAL: Short term follow up of the left breast, due for bilateral imaging. Comparison is made to exams dated: 03/06/2020 mammogram, 04/22/2019 mammogram, and 04/19/2018 mammogram - [facility]. There are scattered areas of fibroglandular density in both breasts (category b / 25%-50% glandular tissue). There is a biopsy site marker on the left breast. Redemonstration of previously described 6 mm round asymmetry in the left breast at 2 o'clock middle depth. This is not significantly changed. No other significant masses, calcifications, or other findings are seen in either breast. IMPRESSION: INCOMPLETE: NEEDS ADDITIONAL IMAGING EVALUATION The 6 mm round asymmetry in the left breast is indeterminate. An ultrasound is recommended for further evaluation and is scheduled to immediately follow this study. Based on the Tyrer Cuzick model (a risk assessment model) the patient's lifetime risk is 0.3% and her 10 year risk is 0.0%. According to the ACR, ACS, and NCCN guidelines, an annual breast MRI exam along with mammogram is recommended if the patient's lifetime risk is 20% or greater. This exam was interpreted at Station ID: [id number]. NOTE: For mammograms, a report in lay terms will be sent to the patient. Approximately 15% of breast malignancies will not be visualized mammographically. In the management of a palpable breast mass, a negative mammogram must not discourage biopsy of a clinically suspicious lesion. Electronically Signed By: Juma Sheikh M.D. aty/:01/24/2022 11:05:33 ACR BI-RADS Category 0: Incomplete [id number]
--- NOTE | 2022-01-24 | DI.US.S_ITS ---
LIMITED ULTRASOUND OF LEFT BREAST: 01/24/2022 CLINICAL: Short term follow up for the left breast. No prior exams were available for comparison. Color flow and real-time ultrasound of the left breast 1-2 o'clock region were performed. Maldonado scale images of the real-time examination were reviewed. There is a benign 0.3 cm x 0.3 cm x 0.3 cm wider than tall oval mass in the left breast at 1 o'clock middle depth 4 cm from the nipple. This oval mass displays an abrupt boundary and no posterior acoustic shadowing or enhancement. This abnormality is decreased in size and less prominent and correlates with mammography findings. Color flow imaging demonstrates that there is an adjacent vascularity. There also is a benign 0.4 cm x 0.3 cm x 0.3 cm oval mass in the left breast at 2 o'clock anterior depth 3 cm from the nipple. This oval mass is hypoechoic with posterior acoustic enhancement. This abnormality is decreased in size and less prominent. Color flow imaging demonstrates that there is an adjacent vascularity. IMPRESSION: BENIGN There is no sonographic evidence of malignancy. The 0.3 cm x 0.3 cm x 0.3 cm wider than tall oval mass in the left breast at 1 o'clock middle depth has demonstrated two years of stability and is consistent with a benign process. The 0.4 cm x 0.3 cm x 0.3 cm oval mass in the left breast at 2 o'clock anterior depth has demonstrated two years of stability and is consistent with a benign process. Return to annual mammogram screening schedule is recommended. Findings and recommendations were conveyed to the patient during today's evaluation. This exam was interpreted at Station ID: [id number]. Electronically Signed By: Juma Sheikh M.D. aty/:01/24/2022 15:07:10 Ultrasound BI-RADS: 2 Benign
== END ==
PROVIDERS: PCP Family Medicine; Referring Provider Family Medicine; Visit Provider Family Medicine
DX: R92.8 Other abnormal and inconclusive findings on diagnostic imaging of breast (principal); N64.89 Other specified disorders of breast; N63.21 Unspecified lump in the left breast, upper outer quadrant
CPT/HCPCS: 76642; 77066; G0279

== ENCOUNTER → 2022-01-31 10:10 | Outpatient (ROUT) | payer MEDICARE, OTHER, SELFPAY ==
[2022-01-31 10:27] LABS: Prothrombin Time 34.6 SECONDS (10.1-12.7)
== END ==
PROVIDERS: PCP Family Medicine; Visit Provider Family Medicine
DX: Z79.01 Long term (current) use of anticoagulants (principal)
CPT/HCPCS: 85610

== ENCOUNTER → 2022-02-11 08:56 | Outpatient (ROUT) | payer MEDICARE, OTHER, SELFPAY ==
[2022-02-11 09:02] LABS: Prothrombin Time 23.2 SECONDS (10.1-12.7)
== END ==
PROVIDERS: PCP Family Medicine; Visit Provider Family Medicine
DX: Z79.01 Long term (current) use of anticoagulants (principal)
CPT/HCPCS: 85610

== ENCOUNTER → 2022-02-25 09:47 | Outpatient (ROUT) | payer MEDICARE, OTHER, SELFPAY ==
[2022-02-25 10:02] LABS: INR 2.1 (0.9-1.3); Prothrombin Time 24.2 SECONDS (10.1-12.7)
== END ==
PROVIDERS: PCP Family Medicine; Visit Provider Family Medicine
DX: Z79.01 Long term (current) use of anticoagulants (principal)
CPT/HCPCS: 85610

== ENCOUNTER → 2022-03-31 11:07 | Outpatient (ROUT) | payer MEDICARE, OTHER, SELFPAY ==
[2022-03-31 11:32] LABS: INR 2.3 (0.9-1.3); Prothrombin Time 26.3 SECONDS (10.1-12.7)
== END ==
PROVIDERS: PCP Family Medicine; Visit Provider Family Medicine
DX: I48.0 Paroxysmal atrial fibrillation (principal)
CPT/HCPCS: 85610

== ENCOUNTER → 2022-04-27 09:46 | Outpatient (ROUT) | payer MEDICARE, OTHER, SELFPAY ==
[2022-04-27 10:01] LABS: INR 1.9 (0.9-1.3); Prothrombin Time 21.9 SECONDS (10.1-12.7)
== END ==
PROVIDERS: PCP Family Medicine; Visit Provider Family Medicine
DX: Z79.01 Long term (current) use of anticoagulants (principal)
CPT/HCPCS: 85610

== ENCOUNTER → 2022-05-25 09:47 | Outpatient (ROUT) | payer OTHER, SELFPAY ==
[2022-05-25 09:58] LABS: INR 2.2 (0.9-1.3); Prothrombin Time 24.9 SECONDS (10.1-12.7)
== END ==
PROVIDERS: PCP Family Medicine; Visit Provider Family Medicine
DX: Z79.01 Long term (current) use of anticoagulants (principal)
CPT/HCPCS: 85610

== ENCOUNTER → 2022-06-13 09:17 | Outpatient (CLI) | payer MEDICARE, OTHER, SELFPAY ==
--- NOTE | 2022-06-13 09:20 | DI.CT.S_ITS ---
PROCEDURE: CT CHEST WO CON INDICATIONS: Other nonspecific abnormal finding of lung field TECHNIQUE: Noncontrast 2.0-2.5 mm thick sections acquired from the pulmonary apices to the posterior costophrenic angles. 7 mm thick axial MIP and 5 mm coronal and sagittal reformats were then acquired. A low radiation dose technique was utilized. COMPARISON: [facility], US, US SOFT TISSUE HEAD AND NECK, 12/23/2021, 14:23. [facility], NM, NM PET CT FUSION SKULL 2 THIGH, 12/22/2021, 11:13. [facility], CT, CT CHEST W CON, 11/10/2021, 11:20. FINDINGS: Image quality: Diagnostic, given the low radiation dose technique. Lungs and pleura: There are multiple irregular subpleural lung nodules bilaterally, unchanged in size. A reference nodule in the right lower lobe measures 1.4 x 1.3 cm (series 3, image 236), most likely round atelectasis. There is 0.4 x 0.8 cm irregular subpleural nodule in the right upper lobe (series 3, image 131). A 0.7 cm subpleural nodule is seen in the left lower lobe (series 3, image 231). Mild emphysema. Mediastinum: Heart size is normal. No pericardial effusion. Mild coronary artery calcification. No mediastinal adenopathy by size criteria. Thoracic aorta and central pulmonary arteries are normal in size. Esophagus is normal in caliber. No hiatal hernia. Bones and chest wall: No suspicious bony lesions. No vertebral body compression fractures. No axillary or supraclavicular adenopathy by size criteria. There is a 0.7 cm low-density nodule in the left thyroid lobe, and a 0.5 cm low-density nodule in the right thyroid lobe. Abdomen: Visualized upper abdomen solid organs and bowel loops appear normal in the absence of contrast. IMPRESSION: 1. Stable lung nodules bilaterally. Please see enclosed follow-up recommendation. 2. Bilateral thyroid nodules. 3. Coronary artery atherosclerosis. Fleischner Society criteria for SOLID lung nodule followup. Nodule size (mm)Low-risk patientHigh-risk patient<6 (single or multiple)No routine followup.Optional CT at 12 months. 6-8 (single or multiple)CT at 6-12 months, then optional CT at 18-24 mo.CT at 6-12 months, then CT at 18-24 months. >8 (single)CT at 3 months, PET-CT, or biopsy. Same as for low-risk pts. >8 (multiple)CT at 3-6 months, then optional CT at 18-24 mo.CT at 3-6 months, then CT at 18-24 months. Fleischner Society criteria for SUB-SOLID lung nodule followup. Solitary pure ground-glass nodules<6 mm (ground glass or part solid)No followup needed. 6 mm or larger (ground glass)CT at 6-12 months to confirm persistence, then CT every 2 years until 5 years.6 mm or larger (part solid)CT at 3-6 months to confirm persistence, then annual CT until 5 years if unchanged and solid component remains <6 mm. Multiple sub-solid nodules<6 mmCT at 3-6 months, then CT consider at 2 & 4 years for high risk patients. [address] at 3-6 months. Subsequent management based on most suspicious lesions. Recommendations do not apply to lung cancer screening, patients with immunosuppression, or patients with known primary cancer. Dictated by: Usha Kenney M.D. on 06/13/2022 at 11:38 Approved by: Usha Kenney M.D. on 06/13/2022 at 11:47
== END ==
PROVIDERS: PCP Family Medicine; Referring Provider Specialist; Visit Provider Specialist
DX: R91.8 Other nonspecific abnormal finding of lung field (principal); E04.2 Nontoxic multinodular goiter; I25.10 Atherosclerotic heart disease of native coronary artery without angina pectoris
CPT/HCPCS: 71250

== ENCOUNTER → 2022-06-28 09:56 | Outpatient (ROUT) | payer MEDICARE, OTHER, SELFPAY ==
[2022-06-28 10:03] LABS: Prothrombin Time 23.3 SECONDS (10.1-12.7)
== END ==
PROVIDERS: PCP Family Medicine; Visit Provider Family Medicine
DX: I26.99 Other pulmonary embolism without acute cor pulmonale (principal)
CPT/HCPCS: 85610

== ENCOUNTER → 2022-07-27 09:14 | Outpatient (ROUT) | payer MEDICARE, SELFPAY ==
[2022-07-27 09:27] LABS: Prothrombin Time 23.5 SECONDS (10.1-12.7)
== END ==
PROVIDERS: PCP Family Medicine; Visit Provider Family Medicine
DX: Z79.01 Long term (current) use of anticoagulants (principal)
CPT/HCPCS: 85610

== ENCOUNTER → 2022-08-29 09:41 | Outpatient (ROUT) | payer MEDICARE, SELFPAY ==
[2022-08-29 09:57] LABS: INR 2.5 (0.9-1.3); Prothrombin Time 28.7 SECONDS (10.1-12.7)
== END ==
PROVIDERS: PCP Family Medicine; Visit Provider Family Medicine
DX: Z79.01 Long term (current) use of anticoagulants (principal)
CPT/HCPCS: 85610

== ENCOUNTER → 2022-09-28 09:26 | Outpatient (ROUT) | payer MEDICARE, SELFPAY ==
[2022-09-28 09:38] LABS: Prothrombin Time 23.4 SECONDS (10.1-12.7)
== END ==
PROVIDERS: PCP Family Medicine; Visit Provider Family Medicine
DX: Z79.01 Long term (current) use of anticoagulants (principal)
CPT/HCPCS: 85610

== ENCOUNTER → 2022-10-25 09:50 | Outpatient (ROUT) | payer MEDICARE, OTHER, SELFPAY ==
[2022-10-25 10:03] LABS: INR 2.3 (0.9-1.3); Prothrombin Time 27.2 SECONDS (10.1-12.7)
== END ==
PROVIDERS: PCP Family Medicine; Visit Provider Family Medicine
DX: Z79.01 Long term (current) use of anticoagulants (principal)
CPT/HCPCS: 85610

== ENCOUNTER → 2022-11-30 11:30 | Outpatient (ROUT) | payer MEDICARE, OTHER, SELFPAY ==
[2022-11-30 11:42] LABS: INR 2.2 (0.9-1.3); Prothrombin Time 25.8 SECONDS (10.1-12.7)
== END ==
PROVIDERS: PCP Family Medicine; Visit Provider Family Medicine
DX: I48.0 Paroxysmal atrial fibrillation (principal)
CPT/HCPCS: 85610

== ENCOUNTER → 2022-12-28 08:15 | Outpatient (ROUT) | payer MEDICARE, OTHER, SELFPAY ==
[2022-12-28 08:24] LABS: INR 2.4 (0.9-1.3); Prothrombin Time 28.3 SECONDS (10.1-12.7)
== END ==
PROVIDERS: PCP Family Medicine; Visit Provider Family Medicine
DX: I48.0 Paroxysmal atrial fibrillation (principal)
CPT/HCPCS: 85610

== ENCOUNTER → 2023-01-18 11:18 | Outpatient (CLI) | payer MEDICARE, OTHER, SELFPAY ==
--- NOTE | 2023-01-18 11:19 | DI.US.S_ITS ---
PROCEDURE: US THYROID INDICATIONS: Nontoxic single thyroid nodule TECHNIQUE: Real-time scanning was performed of the thyroid gland, with image documentation. COMPARISON: [facility], US, US THYROID, 12/01/2021, 13:05. FINDINGS: Right: Thyroid lobe measures 3.7 x 1.9 x 1.2 cm, and is homogeneous in echotexture. Left: Thyroid lobe measures 3.0 x 1.2 x 1.4 cm, and is homogenous in echotexture. Nodule number: 1 Location: Left mid Size: 0.8 x 0.5 x 0.7 cm. Composition: Cystic Echogenicity: Hypoechoic Shape: wider than tall. Margins: Smooth Echogenic foci: Punctate Total points: 4 ACR TI-RADS category: 4 Nodule number: 2 Location: Left inferior Size: 0.6 x 0.7 x 1.0 cm. Composition: Cystic Echogenicity: Hypoechoic Shape: wider than tall. Margins: Smooth Echogenic foci: Non Total points: To ACR TI-RADS category: 2 Nodule number: 3 Location: Right mid Size: 0.7 x 0.9 x 0.6 cm. Composition: Cystic Echogenicity: Hypoechoic Shape: wider than tall. Margins: Smooth Echogenic foci: Non Total points: 2 ACR TI-RADS category: 2 Nodule number: 4 Location: Right inferior Size: 0.9 x 0.7 x 0.5 cm. Composition: Solid Echogenicity: Hypoechoic Shape: wider than tall. Margins: Smooth Echogenic foci: Punctate Total points: 7 ACR TI-RADS category: 5 IMPRESSION: Stable bilateral pulmonary nodules. Best practice guidelines advise biopsy nodule 4, if not previously accomplished ACR TI-RADS definitions and recommendations: TI-RADS 1 (benign): 0 points. FNA not needed. TI-RADS 2 (not suspicious): 2 points. FNA not needed. TI-RADS 3 (mildly suspicious): 3 points. * FNA if 2.5 cm or larger, follow up if 1.5 cm or larger (at 1, 3, and 5 years). TI-RADS 4 (moderately suspicious): 4-6 points. * FNA if 1.5 cm or larger, follow up if 1 cm or larger (at 1, 2, 3, and 5 years). TI-RADS 5 (highly suspicious): 7 points or more. * FNA if 1 cm or larger, follow up if 0.5 cm or larger (every year for 5 years). Approved by: Smith Mccarthy M.D. on 01/18/2023 at 17:49
== END ==
PROVIDERS: PCP Family Medicine; Referring Provider Family Medicine; Visit Provider Family Medicine
DX: E04.2 Nontoxic multinodular goiter (principal)
CPT/HCPCS: 76536

== ENCOUNTER → 2023-01-31 08:54 | Outpatient (ROUT) | payer MEDICARE, OTHER, SELFPAY ==
[2023-01-31 09:54] LABS: INR 1.9 (0.9-1.3); Prothrombin Time 21.7 SECONDS (10.1-12.7)
== END ==
PROVIDERS: Family Provider Family Medicine; PCP Family Medicine; Visit Provider Family Medicine
DX: Z79.01 Long term (current) use of anticoagulants (principal)
CPT/HCPCS: 85610

== ENCOUNTER → 2023-02-28 09:24 | Outpatient (ROUT) | payer MEDICARE, OTHER, SELFPAY ==
[2023-02-28 09:32] LABS: INR 2.8 (0.9-1.3)
[2023-02-28 09:35] LABS: Prothrombin Time 32.3 SECONDS (10.1-12.7)
== END ==
PROVIDERS: Family Provider Family Medicine; PCP Family Medicine; Visit Provider Family Medicine
DX: I48.0 Paroxysmal atrial fibrillation (principal)
CPT/HCPCS: 85610

== ENCOUNTER → 2023-03-24 10:24 | Outpatient (CLI) | payer MEDICARE, OTHER, SELFPAY ==
--- NOTE | 2023-03-24 10:27 | DI.MG.S_ITS ---
BILATERAL DIGITAL SCREENING MAMMOGRAM 3D/2D WITH CAD: 03/24/2023 CLINICAL: Routine screening. Family history of breast cancer. Comparison is made to exams dated: 01/24/2022 mammogram, 03/06/2020 mammogram, 04/25/2019 mammogram, and 04/22/2019 mammogram - [facility]. Both breasts are heterogeneously dense, which may obscure small masses (category c / 51-75% glandular tissue). Current study was also evaluated with a Computer Aided Detection (CAD) system. There is a focal asymmetry in the right breast at 12 o'clock middle depth. This is more prominent. There is a focal asymmetry in the left breast at 3 o'clock posterior depth. This is more prominent. No other significant masses or calcifications are seen in either breast. IMPRESSION: INCOMPLETE: NEEDS ADDITIONAL IMAGING EVALUATION The focal asymmetry in the right breast at 12 o'clock middle depth is indeterminate. An ultrasound is recommended. The focal asymmetry in the left breast at 3 o'clock posterior depth is indeterminate. An ultrasound is recommended. This was deemed benign in 01/24/2022 workup, but appears slightly larger today. This exam was interpreted at Station ID: [id number]. NOTE: For mammograms, a report in lay terms will be sent to the patient. Approximately 15% of breast malignancies will not be visualized mammographically. In the management of a palpable breast mass, a negative mammogram must not discourage biopsy of a clinically suspicious lesion. Electronically Signed By: Jac Leal M.D. lc/:03/24/2023 12:34:42 letter sent: Additional Imaging Needed ACR BI-RADS Category 0: Incomplete [id number]
== END ==
PROVIDERS: Family Provider Family Medicine; PCP Family Medicine; Referring Provider Family Medicine; Visit Provider Family Medicine
DX: Z12.31 Encounter for screening mammogram for malignant neoplasm of breast (principal); Z80.3 Family history of malignant neoplasm of breast
CPT/HCPCS: 77063; 77067

== ENCOUNTER → 2023-04-04 08:46 | Outpatient (ROUT) | payer MEDICARE, OTHER, SELFPAY ==
[2023-04-04 08:55] LABS: INR 2.3 (0.9-1.3); Prothrombin Time 26.7 SECONDS (10.1-12.7)
== END ==
PROVIDERS: Family Provider Family Medicine; PCP Family Medicine; Visit Provider Family Medicine
DX: I48.0 Paroxysmal atrial fibrillation (principal)
CPT/HCPCS: 85610

== ENCOUNTER → 2023-04-28 11:00 | Outpatient (CLI) | payer MEDICARE, OTHER, SELFPAY ==
--- NOTE | 2023-04-28 | DI.US.S_ITS ---
LIMITED ULTRASOUND OF LEFT BREAST: 04/28/2023 CLINICAL: Patient returns today to evaluate a focal asymmetry in the left breast. Comparison is made to exams dated: 01/24/2022 ultrasound, 01/24/2022 mammogram, 03/06/2020 ultrasound, 03/06/2020 mammogram, 04/25/2019 ultrasound, and 03/24/2023 and 04/25/2019 mammogram - [facility]. Color flow and real-time ultrasound of the left breast 11 o'clock region were performed. There is a 0.7 cm x 0.6 cm x 0.4 cm irregular mass with an indistinct margin in the left breast at 1 o'clock, 3 cm from the nipple. This oval mass is hypoechoic. This corresponds to mass seen on recent screening mammogram 03/24/2023. Previously, the mass measured 0.4 x 0.3 x 0.3 cm on ultrasound 01/24/2022. IMPRESSION: SUSPICIOUS OF MALIGNANCY Left breast 0.7 cm irregular mass at 1 o'clock, 3 cm from the nipple demonstrating interval growth on mammogram and ultrasound since 01/24/2022. Given interval growth, finding is suspicious. Recommend ultrasound guided biopsy with attention to clip placement on post biopsy mammogram. Findings and recommendations were discussed with the patient by Dr. Kenney during today's examination. This exam was interpreted at Station ID: [id number]. Electronically Signed By: Sheryl Denson M.D., PH.D eb/:04/28/2023 13:26:34 letter sent: Biopsy Required Ultrasound BI-RADS: 4 Suspicious for malignancy
--- NOTE | 2023-04-28 | DI.RAD.S_ITS ---
PROCEDURE: XR HIP W PEL IF DONE RT 2V INDICATIONS: pain TECHNIQUE: AP pelvis with lateral view(s) of the right hip(s). COMPARISON: [facility], CR, [id number] W PEL IF PERFORMED, 08/20/2017, 11:58. FINDINGS: Bones: No fractures or dislocations. Right hip arthroplasty components are in stable position. No periprosthetic lucencies. Severe osteoarthritic degeneration seen in the left femoroacetabular joint with prominent marginal spurring and near complete joint space loss. Pelvic ring appears intact. No suspicious bony lesions. Soft tissues: The visualized bowel gas pattern is normal. No suspicious soft tissue calcifications. IMPRESSION: 1. Expected appearance post right hip arthroplasty without evidence of loosening. 2. Severe left hip osteoarthritis. 3. Consider MRI for further evaluation of overlying soft tissue structures, and exclusion of pseudotumor. Dictated by: Jeanine Foster M.D. on 04/28/2023 at 17:42 Approved by: Jeanine Foster M.D. on 04/28/2023 at 17:46
--- NOTE | 2023-04-28 | DI.US.S_ITS ---
LIMITED ULTRASOUND OF RIGHT BREAST: 04/28/2023 CLINICAL: Patient returns today to evaluate an asymmetry in the right breast. Comparison is made to exams dated: 03/24/2023 mammogram, 01/24/2022 ultrasound, 01/24/2022 mammogram, 03/06/2020 ultrasound, 03/06/2020 mammogram, and 04/25/[address] [facility]. Color flow and real-time ultrasound of the right breast 11 o'clock region were performed. There is a 0.4 cm x 0.4 cm x 0.4 cm oval hypoechoic mass with an indistinct margin in the right breast at 11 o'clock, 6 cm from the nipple. This corresponds to mass seen on recent screening mammogram 03/24/2023. IMPRESSION: SUSPICIOUS OF MALIGNANCY Right breast 0.4 cm mass at 11 o'clock, 6 cm from the nipple. Finding is suspicious. Recommend ultrasound guided biopsy. Findings and recommendations were discussed with the patient by Dr. Kenney during today's examination. This exam was interpreted at Station ID: [id number]. Electronically Signed By: Sheryl Denson M.D., PH.D eb/:04/28/2023 13:30:35 Entry: - 05/01/2023 10:46:01 Ultrasound BI-RADS: 4 Suspicious for malignancy
== END ==
PROVIDERS: Family Provider Family Medicine; PCP Family Medicine; Referring Provider Family Medicine; Visit Provider Family Medicine
DX: R92.8 Other abnormal and inconclusive findings on diagnostic imaging of breast (principal); N63.21 Unspecified lump in the left breast, upper outer quadrant; N63.11 Unspecified lump in the right breast, upper outer quadrant; M70.61 Trochanteric bursitis, right hip; M16.12 Unilateral primary osteoarthritis, left hip; Z96.641 Presence of right artificial hip joint
CPT/HCPCS: 73502; 76642

== ENCOUNTER → 2023-05-03 09:45 | Outpatient (ROUT) | payer MEDICARE, OTHER, SELFPAY ==
[2023-05-03 09:58] LABS: INR 2.4 (0.9-1.3); Prothrombin Time 27.9 SECONDS (9.4-12.5)
== END ==
PROVIDERS: Family Provider Family Medicine; PCP Family Medicine; Visit Provider Family Medicine
DX: I48.0 Paroxysmal atrial fibrillation (principal)
CPT/HCPCS: 85610

== ENCOUNTER 2023-05-05 09:45 | Outpatient (RCR) | payer MEDICARE, OTHER, SELFPAY ==
--- NOTE | 2023-02-15 14:37 | PT.OIE ---
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, cervical HNP (herniated nucleus pulposus), cervical Hypertension Pulmonary embolism Past Surgical History (Last Reviewed 07/24/21 @ 17:05 by Juvencio Campoverde PA-C) History of cholecystectomy History of hip replacement Visit Care Team Role Provider Type Екатерина Jo MD Attending Provider Physician Family Provider Primary Care Provider Referring Provider Specialty: [facility] Practice Address: [address] [place] [address], [facility] [place], [facility] Email: [email or web address] Physical Therapy Initial Evaluation PT-OP-A Visit Information Start: 02/15/23 13:17 Freq: Status: Active Protocol: Document 02/15/23 13:17 SAK (Rec: 02/15/23 14:35 SAK [id number]) Out-Patient Physical Therapy Visit Information Visit Information Visit Type Initial Evaluation Visit Start Time 13:22 Visit Stop Time 14:20 Total Visit Minutes 58 Visit Number 1 Evaluation Information Evaluation Date 02/15/23 PT-OP-B Current Condition Start: 02/15/23 13:17 Freq: Status: Active Protocol: Document 02/15/23 13:17 SAK (Rec: 02/15/23 14:35 [facility] [id number]) Current Condition History of Current Condition Onset Date 10+ years Current Complaints worsening pain, unbearable 2-2 1/2 yrs ago History of Current Condition gradual worsening of neck pain , now radiating into right UE. 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 Has done accupuncture, PT with H[facility] Shell: ther ex, e-stim , trial traction not tolerated , chiropractic not helpful. Can't tolerate any medications except Tylenol; very sensitive to drugs. Saw Dr. Jo yesterday; has nodule right side of neck wants to biopsy but location makes it difficulty, will look at again in 6 months. Pain inc with looking down, turning neck to drive, reading, gardening, driving. Denies N/T. Has worn cervical collar which is somewhat helpful but irritates neck nodule. Sometimes links hands behind head and pushes in to get some relief. Uses heating pad for temporary relief. Can't sleep in preferred position (sidelying) Prior Treatments and Tests MRI 2020: multilevel degenerative disc disease and arthropathy mild to mod left sided central stenosis C4-5 and C5-6 x-ray 2020: spinal stenosis, DDD mid to lower cervical spine most prominent at C56 level. Min anterolisthesis C4 -5 and C6-7 Injection c/s, no effect. 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 Therapy/Recovery PT-OP-C Subjective Start: 02/15/23 13:17 Freq: Status: Active Protocol: Document 02/15/23 13:17 [facility] (Rec: 02/15/23 14:35 [facility] [id number]) Patient Questionnaires Neck Disability Index NDI Score 50 Upper Extremity Functional Scale UEFS Score 27 OP-PT Pain Assessment Pain Assessment Grid Paper Pain Assessment Grid Completed Yes Location c/s and right shoulder Pain Location Details right side Intensity 8 Description Aching,Sharp Pain Aggravating Factors Position,Changing Position,ADL 's,Activity,Bending Pain Alleviating Factors Heat,Medication,Inactivity, Splinting Home Pain Medication Use Pain Medications Used Yes Pain Behaviors Pain Behaviors Calling Out,Guarding,Holding Area,Wincing Comments Pain Comments Tylenol only PT-OP-H Neuro Start: 02/15/23 13:17 Freq: Status: Active Protocol: Document 02/15/23 13:17 [facility] (Rec: 02/15/23 14:35 [facility] [id number]) Sensation Evaluation Gross Sensation Gross Sensation WNL PT-OP-J Posture/Palpation/Skin Start: 02/15/23 13:17 Freq: Status: Active Protocol: Document 02/15/23 13:17 [facility] (Rec: 02/15/23 14:35 [facility] [id number]) Posture Evaluation Position Sitting Head/C-Spine Posture Rotated Right,Forward Head T-Spine Posture Increased Kyphosis Shoulder Posture (R) Elevated Arm Posture (L) Internally Rotated,(R) Internally Rotated Palpation Assessment Location c/s Palpation Location right facet joings Palpation Findings Soft Tissue Tightness,Muscle Guarding,Tenderness PT-OP-K Range of Motion Start: 02/15/23 13:17 Freq: Status: Active Protocol: Document 02/15/23 13:17 [facility] (Rec: 02/15/23 14:35 [facility] [id number]) Cervical Spine Range of Motion Cervical Spine Active Flexion 65 Extension 41 Rotation Left 37 Rotation Right 57 Lateral Flexion Left 35 Lateral Flexion Right 18 ROM Limitations Bony Restriction,Pain Shoulder Goniometric Range of Motion Shoulder brook Shoulder ROM WFL Yes PT-OP-L Special Tests Start: 02/15/23 13:17 Freq: Status: Active Protocol: Document 02/15/23 13:17 [facility] (Rec: 02/15/23 14:35 [facility] [id number]) Special Tests Cervical Spine Special Tests Alar Ligament Test Results - C2 Side [place] Test Results - C1 Side [place] Test Results - Vertebral Artery Test Results - Foraminal Compression Test Results + inc pain Traction Test Results + inc pain Shoulder Special Tests Drop Arm Rotator Cuff Test Results - PT-OP-M Strength Start: 02/15/23 13:17 Freq: Status: Active Protocol: Document 02/15/23 13:17 [facility] (Rec: 02/15/23 14:35 [facility] [id number]) Cervical Spine Strength Cervical Spine Manual Muscle Testing Testing Position Sitting Flexion (C1-2) 4 Good Extension 4 Good Rotation Left 4 Good Rotation Right 4 Good Lateral Flexion Left (C3) 4 Good Lateral Flexion Right (C3) 4 Good Comments painful PT-OP-Q Treatments Start: 02/15/23 13:17 Freq: Status: Active Protocol: Document 02/15/23 13:17 [facility] (Rec: 02/15/23 14:35 [facility] [id number]) Therapeutic Exercises Supine Exercises c/s rotation Side bilateral Reps/Minutes 5x Comments painfree ROM Sitting Exercises shoulder shrugs and rolls Side bilateral Reps/Minutes 5x Self-Care/Home Management Treatment Education Patient Education Body Mechanics,Home Exercise Program,Posture Other Education neutral neck position supported by pillow supine and sidelying Activities Self-Care/Home Management Activities change positions frequently try heat patches PT-OP-R Modalities Start: 02/15/23 13:17 Freq: Status: Active Protocol: Document 02/15/23 13:17 [facility] (Rec: 02/15/23 14:35 [facility] [id number]) Hot Pack/Cold Pack Treatment Hot Pack Location c/s Patient Position Hooklying Treatment Duration (minutes) 15 Patient Tolerance Good PT-OP-T Assessment and Plan Start: 02/15/23 13:17 Freq: Status: Active Protocol: Document 02/15/23 13:17 [facility] (Rec: 02/15/23 14:35 [facility] [id number]) Physical Therapy Assessment Rehab Potential Rehabilitation Potential Good Evaluation Complexity Number of Personal Factors/Comorbidities 1-2 Number of Body Systems Impaired 3 Clinical Presentation at Evaluation Evolving Impairments Impairments Activity Tolerance,Pain,ROM Goals Three Impairment activity tolerance Impairment Neck disability index score 57 % Short Term Goal (STG) Decrease Neck disability index score to no greater than 45% as measure of improved activity tolerance STG Duration 03/18/23 Long-Term Goal (LTG) Decrease neck disability index score to no greater than 30% as measure of improved activity tolerance and quality of life LTG Duration 04/17/23 Two Impairment dec neck ROM Impairment difficult and painful to turn head for safe driving Short Term Goal (STG) Patient to be instructed in ROM exercises for cervical spine STG Duration 03/18/[address] Deputy Clerk Goal (LTG) Patient to be independent and compliant with HEP and patient to report at least 75% improvement in ability to turn her head for driving, neck ROM WFL. LTG Duration 04/17/23 One Impairment function-limiting neck pain Impairment as high as 8/10 Short Term Goal (STG) decrease pain to no greater than 6/10 with all usual activities STG Duration 03/18/[address] Deputy Clerk Goal (LTG) Decrease pain to no greater than 3/10 to allow patient to return to prior level of function LTG Duration 04/17/23 Assessment Summary Assessment Patient presents to PT with function-limiting pain in right cervical spine without radicular symptoms. Shoulder cleared. Signs and symptoms consistent with degenerative changes, and exacerbated by patient acivities of reading, gardening, and sewing as well as caregiving activities for now . Feel she would benefit from physical therapy to decrease her pain and improve her ROM especially related to driving. Initiated patient education for correct neck positioning in bed in neutral position, and ther ex of shoulder shrugs , shoulder rolls, and supine cervical rotation. Ended with moist heat to cervical spine. POC was discussed and patient was in agreement. Physical Therapy Plan Frequency and Duration Frequency of Treatment 2x/Week Duration of treatment (weeks) 8 Plan of Care Start Date 02/15/23 Plan of Care End Date 04/17/23 Therapeutic Interventions Therapeutic Interventions Home Exercise Program,Manual Therapy,Patient/Caregiver Education,Self-Care/Home Management,Soft Tissue Mobilization,Taping, Therapeutic Activities, Therapeutic Exercises Modalities Electric Stimulation,Hot Packs ,Infrared Therapy,Traction- Mechanical,Ultrasound Next Visit Focus/Plan Next Note Type Treatment Note Next Visit Plan REview HEP and bed positioning principles, initiate body mechanics and posture education. Gentle ther ex progression. Trial cold laser , end with moist heat.
--- NOTE | 2023-02-15 14:37 | PT.OPPOC ---
Physical, Occupational & Speech Therapy At [facility] Current Diagnoses Cervicalgia (02/15/23) Abnormal posture (02/15/23) Weakness (02/15/23) Visit Care Team Role Provider Type Екатерина Jo MD Attending Provider Physician Family Provider Primary Care Provider Referring Provider Specialty: Family Practice Address: [address] [place] [address], [facility] Email: [email or web address] Plan Of Care PT-OP-T Assessment and Plan Start: 02/15/23 13:17 Freq: Status: Active Protocol: Document 02/15/23 13:17 [facility] (Rec: 02/15/23 14:35 SAK [id number]) Physical Therapy Assessment Rehab Potential Rehabilitation Potential Good Evaluation Complexity Number of Personal Factors/Comorbidities 1-2 Number of Body Systems Impaired 3 Clinical Presentation at Evaluation Evolving Impairments Impairments Activity Tolerance,Pain,ROM Goals Three Impairment activity tolerance Impairment Neck disability index score 57 % Short Term Goal (STG) Decrease Neck disability index score to no greater than 45% as measure of improved activity tolerance STG Duration 03/18/23 Shelter Goal (LTG) Decrease neck disability index score to no greater than 30% as measure of improved activity tolerance and quality of life LTG Duration 04/17/23 Two Impairment dec neck ROM Impairment difficult and painful to turn head for safe driving Short Term Goal (STG) Patient to be instructed in ROM exercises for cervical spine STG Duration 03/18/23 Shelter Goal (LTG) Patient to be independent and compliant with HEP and patient to report at least 75% improvement in ability to turn her head for driving, neck ROM WFL. LTG Duration 04/17/23 One Impairment function-limiting neck pain Impairment as high as 8/10 Short Term Goal (STG) decrease pain to no greater than 6/10 with all usual activities STG Duration 03/18/23 Switch Box Installer Goal (LTG) Decrease pain to no greater than 3/10 to allow patient to return to prior level of function LTG Duration 04/17/23 Assessment Summary Assessment Patient presents to PT with function-limiting pain in right cervical spine without radicular symptoms. Shoulder cleared. Signs and symptoms consistent with degenerative changes, and exacerbated by patient acivities of reading, gardening, and sewing as well as caregiving activities for now . Feel she would benefit from physical therapy to decrease her pain and improve her ROM especially related to driving. Initiated patient education for correct neck positioning in bed in neutral position, and ther ex of shoulder shrugs , shoulder rolls, and supine cervical rotation. Ended with moist heat to cervical spine. POC was discussed and patient was in agreement. Physical Therapy Plan Frequency and Duration Frequency of Treatment 2x/Week Duration of treatment (weeks) 8 Plan of Care Start Date 02/15/23 Plan of Care End Date 04/17/23 Therapeutic Interventions Therapeutic Interventions Home Exercise Program,Manual Therapy,Patient/Caregiver Education,Self-Care/Home Management,Soft Tissue Mobilization,Taping, Therapeutic Activities, Therapeutic Exercises Modalities Electric Stimulation,Hot Packs ,Infrared Therapy,Traction- Mechanical,Ultrasound Next Visit Focus/Plan Next Note Type Treatment Note Next Visit Plan REview HEP and bed positioning principles, initiate body mechanics and posture education. Gentle ther ex progression. Trial cold laser , end with moist heat. Plan of Care Dates Plan of Care Start Date 02/15/23 Plan of Care End Date 04/17/23 Electronically Signed by: Luly Jolly, PT 02/15/23 [id number] If you are in agreement with this Plan of Care, please return a signed and dated copy. I have reviewed this Plan of Care and certify that the skilled therapy services above are required to meet the patient?s needs. Physician Signature Date Printed Name and Credentials Clinical Instructor Signature Printed Name and Credentials
--- NOTE | 2023-02-20 15:21 | PT.OTN ---
Current Diagnoses Cervicalgia (02/20/23) Abnormal posture (02/20/23) Weakness (02/20/23) Physical Therapy Treatment Note PT-OP-A Visit Information Start: 02/15/23 13:17 Freq: Status: Active Protocol: Document 02/20/23 09:32 [facility]AK (Rec: 02/20/23 10:31 SAK [id number]) Out-Patient Physical Therapy Visit Information Visit Information Visit Type Treatment Note Visit Start Time 09:32 Visit Stop Time 10:25 Total Visit Minutes 53 Visit Number 2 Evaluation Information Evaluation Date 02/20/23 PT-OP-B Current Condition Start: 02/15/23 13:17 Freq: Status: Active Protocol: Document 02/20/23 09:32 SAK (Rec: 02/20/23 10:31 SAK [id number]) Current Condition History of Current Condition Onset Date 10+ years Current Complaints worsening pain, unbearable 2-2 1/2 yrs ago History of Current Condition gradual worsening of neck pain , now radiating into right UE. 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 Has done accupuncture, PT with [facility]: ther ex, e-stim , trial traction not tolerated , chiropractic not helpful. Can't tolerate any medications except Tylenol; very sensitive to drugs. Saw Dr. Jo yesterday; has nodule right side of neck wants to biopsy but location makes it difficulty, will look at again in 6 months. Pain inc with looking down, turning neck to drive, reading, gardening, driving. Denies N/T. Has worn cervical collar which is somewhat helpful but irritates neck nodule. Sometimes links hands behind head and pushes in to get some relief. Uses heating pad for temporary relief. Can't sleep in preferred position (sidelying) Prior Treatments and Tests MRI 2020: multilevel degenerative disc disease and arthropathy mild to mod left sided central stenosis C4-5 and C5-6 x-ray 2020: spinal stenosis, DDD mid to lower cervical spine most prominent at C56 level. Min anterolisthesis C4 -5 and C6-7 Injection c/s, no effect. Treatment Goals Patient/Caregiver Goals decrease pain, improve activity tolerance PT-OP-C Subjective Start: 02/15/23 13:17 Freq: Status: Active Protocol: Document 02/20/23 09:32 SAK (Rec: 02/20/23 10:31 [facility] [id number]) Patient Questionnaires Neck Disability Index NDI Score 50 OP-PT Pain Assessment Pain Behaviors Pain Behaviors Calling Out,Guarding,Holding Area,Wincing PT-OP-H Neuro Start: 02/15/23 13:17 Freq: Status: Active Protocol: Document 02/15/23 13:17 [facility] (Rec: 02/15/23 14:35 [facility] [id number]) Sensation Evaluation Gross Sensation Gross Sensation WNL PT-OP-J Posture/Palpation/Skin Start: 02/15/23 13:17 Freq: Status: Active Protocol: Document 02/15/23 13:17 [facility] (Rec: 02/15/23 14:35 [facility] [id number]) Posture Evaluation Position Sitting Head/C-Spine Posture Rotated Right,Forward Head T-Spine Posture Increased Kyphosis Shoulder Posture (R) Elevated Arm Posture (L) Internally Rotated,(R) Internally Rotated Palpation Assessment Location c/s Palpation Location right facet joings Palpation Findings Soft Tissue Tightness,Muscle Guarding,Tenderness PT-OP-K Range of Motion Start: 02/15/23 13:17 Freq: Status: Active Protocol: Document 02/15/23 13:17 [facility] (Rec: 02/15/23 14:35 [facility] [id number]) Cervical Spine Range of Motion Cervical Spine Active Flexion 65 Extension 41 Rotation Left 37 Rotation Right 57 Lateral Flexion Left 35 Lateral Flexion Right 18 ROM Limitations Bony Restriction,Pain Shoulder Goniometric Range of Motion Shoulder brook Shoulder ROM WFL Yes PT-OP-L Special Tests Start: 02/15/23 13:17 Freq: Status: Active Protocol: Document 02/15/23 13:17 [facility] (Rec: 02/15/23 14:35 [facility] [id number]) Special Tests Cervical Spine Special Tests Alar Ligament Test Results - C2 Side [place] Test Results - C1 Side [place] Test Results - Vertebral Artery Test Results - [place]am[place] Compression Test Results + inc pain Traction Test Results + inc pain Shoulder Special Tests Drop Arm Rotator Cuff Test Results - PT-OP-M Strength Start: 02/15/23 13:17 Freq: Status: Active Protocol: Document 02/15/23 13:17 [facility] (Rec: 02/15/23 14:35 [facility] [id number]) Cervical Spine Strength Cervical Spine Manual Muscle Testing Testing Position Sitting Flexion (C1-2) 4 Good Extension 4 Good Rotation Left 4 Good Rotation Right 4 Good Lateral Flexion Left (C3) 4 Good Lateral Flexion Right (C3) 4 Good Comments painful PT-OP-Q Treatments Start: 02/15/23 13:17 Freq: Status: Active Protocol: Document 02/20/23 09:32 [facility] (Rec: 02/20/23 10:31 [facility] [id number]) Cardio Equipment Recumbent Stepper (Sci-Fit) Duration (Minutes) 5 Resistance 1 Seat Position 10 Other cues for neutral posture, gentle chin tuck Therapeutic Exercises Supine Exercises deep breathing Supine Exercise Name abdominal, lateral ribcage, upper ribcage Reps/Minutes 5 min Comments manual cues contract relax eye gaze Reps/Minutes 3reps x 2 Comments followed by AROM c/s rotation Side bilateral Reps/Minutes 10x Comments painfree ROM Sidelying Exercises open book Reps/Minutes 5x Comments cues for slow movement,deep breaths Sitting Exercises chin tuck Reps/Minutes 5x Comments cues for gentle shoulder shrugs and rolls Side bilateral Reps/Minutes 5x Self-Care/Home Management Treatment Education Patient Education Body Mechanics,Home Exercise Program,Posture Other Education updated HEP with written handout PT-OP-R Modalities Start: 02/15/23 13:17 Freq: Status: Active Protocol: Document 02/20/23 09:32 [facility] (Rec: 02/20/23 10:31 [facility] [id number]) Hot Pack/Cold Pack Treatment Hot Pack Location c/s Patient Position Hooklying Treatment Duration (minutes) 15 Patient Tolerance Good Infrared Treatment Treatment right c/s Duration (Minutes) 6 Body Position Sitting Continuous/Pulsed Continuous Program or Protocal chronic joint pain and stiffness Comments from C2 to C7 laterally PT-OP-T Assessment and Plan Start: 02/15/23 13:17 Freq: Status: Active Protocol: Document 02/20/23 09:32 [facility] (Rec: 02/20/23 10:31 [facility] [id number]) Physical Therapy Assessment Impairments Impairments Activity Tolerance,Pain,ROM Goals Three Impairment activity tolerance Impairment Neck disability index score 57 % Short Term Goal (STG) Decrease Neck disability index score to no greater than 45% as measure of improved activity tolerance STG Duration 03/18/23 Usp Goal (LTG) Decrease neck disability index score to no greater than 30% as measure of improved activity tolerance and quality of life LTG Duration 04/17/23 Two Impairment dec neck ROM Impairment difficult and painful to turn head for safe driving Short Term Goal (STG) Patient to be instructed in ROM exercises for cervical spine STG Duration 03/18/23 Usp Goal (LTG) Patient to be independent and compliant with HEP and patient to report at least 75% improvement in ability to turn her head for driving, neck ROM WFL. LTG Duration 04/17/23 One Impairment function-limiting neck pain Impairment as high as 8/10 Short Term Goal (STG) decrease pain to no greater than 6/10 with all usual activities STG Duration 03/18/23 Usp Goal (LTG) Decrease pain to no greater than 3/10 to allow patient to return to prior level of function LTG Duration 04/17/23 Assessment Summary Assessment Patient c/s rotation improved after contract/relax technique . Heavy emphasis on deep breathing to decrease sympathetic overactivation and relax soft tissues for improved ROM. Updated written HEP with shoulder shrugs, shoulder rolls, supine c/s rotation, contract relax using eye muscles, open book. Physical Therapy Plan Frequency and Duration Frequency of Treatment 2x/Week Duration of treatment (weeks) 8 Plan of Care Start Date 02/15/23 Plan of Care End Date 04/17/23 Therapeutic Interventions Therapeutic Interventions Home Exercise Program,Manual Therapy,Patient/Caregiver Education,Self-Care/Home Management,Soft Tissue Mobilization,Taping, Therapeutic Activities, Therapeutic Exercises Modalities Electric Stimulation,Hot Packs ,Infrared Therapy,Traction- Mechanical,Ultrasound Next Visit Focus/Plan Next Note Type Treatment Note Next Visit Plan Review HEP, evaluate response to cold laser. Continue gentle ex progression
--- NOTE | 2023-02-23 11:37 | PT.OTN ---
Current Diagnoses Cervicalgia (02/23/23) Abnormal posture (02/23/23) Weakness (02/23/23) Physical Therapy Treatment Note PT-OP-A Visit Information Start: 02/15/23 13:17 Freq: Status: Active Protocol: Document 02/23/23 09:30 SAK (Rec: 02/23/23 10:30 SAK [id number]) Out-Patient Physical Therapy Visit Information Visit Information Visit Type Treatment Note Visit Start Time 09:30 Visit Stop Time 10:25 Total Visit Minutes 55 Visit Number 3 Evaluation Information Evaluation Date 02/20/23 PT-OP-B Current Condition Start: 02/15/23 13:17 Freq: Status: Active Protocol: Document 02/23/23 09:30 SAK (Rec: 02/23/23 10:30 SAK [id number]) Current Condition History of Current Condition Onset Date 10+ years Current Complaints worsening pain, unbearable 2-2 1/2 yrs ago History of Current Condition gradual worsening of neck pain , now radiating into right UE. 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 Has done accupuncture, PT with [facility]: ther ex, e-stim , trial traction not tolerated , chiropractic not helpful. Can't tolerate any medications except Tylenol; very sensitive to drugs. Saw Dr. Jo yesterday; has nodule right side of neck wants to biopsy but location makes it difficulty, will look at again in 6 months. Pain inc with looking down, turning neck to drive, reading, gardening, driving. Denies N/T. Has worn cervical collar which is somewhat helpful but irritates neck nodule. Sometimes links hands behind head and pushes in to get some relief. Uses heating pad for temporary relief. Can't sleep in preferred position (sidelying) Prior Treatments and Tests MRI 2020: multilevel degenerative disc disease and arthropathy mild to mod left sided central stenosis C4-5 and C5-6 x-ray 2020: spinal stenosis, DDD mid to lower cervical spine most prominent at C56 level. Min anterolisthesis C4 -5 and C6-7 Injection c/s, no effect. Treatment Goals Patient/Caregiver Goals decrease pain, improve activity tolerance PT-OP-C Subjective Start: 02/15/23 13:17 Freq: Status: Active Protocol: Document 02/23/23 09:30 SAK (Rec: 02/23/23 10:30 [facility] [id number]) OP-PT Subjective Patient Comments Patient Comments Reports increase in pain the last couple days, did all HEP, did all twice except open book due to L hip pain in sidelying. Doesn't feel needs to do heat at PT; can use at home. OP-PT Pain Assessment Pain Behaviors Pain Behaviors Calling Out,Guarding,Holding Area,Wincing PT-OP-H Neuro Start: 02/15/23 13:17 Freq: Status: Active Protocol: Document 02/15/23 13:17 SAK (Rec: 02/15/23 14:35 [facility] [id number]) Sensation Evaluation Gross Sensation Gross Sensation WNL PT-OP-J Posture/Palpation/Skin Start: 02/15/23 13:17 Freq: Status: Active Protocol: Document 02/15/23 13:17 SAK (Rec: 02/15/23 14:35 [facility] [id number]) Posture Evaluation Position Sitting Head/C-Spine Posture Rotated Right,Forward Head T-Spine Posture Increased Kyphosis Shoulder Posture (R) Elevated Arm Posture (L) Internally Rotated,(R) Internally Rotated Palpation Assessment Location c/s Palpation Location right facet joings Palpation Findings Soft Tissue Tightness,Muscle Guarding,Tenderness PT-OP-K Range of Motion Start: 02/15/23 13:17 Freq: Status: Active Protocol: Document 02/15/23 13:17 SAK (Rec: 02/15/23 14:35 [facility] [id number]) Cervical Spine Range of Motion Cervical Spine Active Flexion 65 Extension 41 Rotation Left 37 Rotation Right 57 Lateral Flexion Left 35 Lateral Flexion Right 18 ROM Limitations Bony Restriction,Pain Shoulder Goniometric Range of Motion Shoulder brook Shoulder ROM WFL Yes PT-OP-L Special Tests Start: 02/15/23 13:17 Freq: Status: Active Protocol: Document 02/15/23 13:17 SAK (Rec: 02/15/23 14:35 [facility] [id number]) Special Tests Cervical Spine Special Tests Alar Ligament Test Results - C2 Side [place] Test Results - C1 Side [place] Test Results - Vertebral Artery Test Results - Foraminal Compression Test Results + inc pain Traction Test Results + inc pain Shoulder Special Tests Drop Arm Rotator Cuff Test Results - PT-OP-M Strength Start: 02/15/23 13:17 Freq: Status: Active Protocol: Document 02/15/23 13:17 SAK (Rec: 02/15/23 14:35 [facility] [id number]) Cervical Spine Strength Cervical Spine Manual Muscle Testing Testing Position Sitting Flexion (C1-2) 4 Good Extension 4 Good Rotation Left 4 Good Rotation Right 4 Good Lateral Flexion Left (C3) 4 Good Lateral Flexion Right (C3) 4 Good Comments painful PT-OP-Q Treatments Start: 02/15/23 13:17 Freq: Status: Active Protocol: Document 02/23/23 09:30 SAK (Rec: 02/23/23 10:30 [facility] [id number]) Cardio Equipment Recumbent Stepper (Sci-Fit) Duration (Minutes) 6 Resistance 1 Seat Position 10 Other cues for neutral posture, gentle chin tuck Therapeutic Exercises Supine Exercises chin tuck Comments next session deep breathing Supine Exercise Name abdominal, lateral ribcage, upper ribcage Reps/Minutes 5 min Comments manual cues contract relax eye gaze Reps/Minutes 3reps x 2 Comments followed by AROM c/s rotation Side bilateral Reps/Minutes 10x Comments painfree ROM Sidelying Exercises open book Reps/Minutes 5x Comments cues for slow movement,deep breaths Sitting Exercises pec stretch Sitting Exercise Name manual Reps/Minutes 2x10 Comments emphasis on deep breathing Trunk rotation Reps/Minutes 2x each side Comments cues for gentle, take deep breath chin tuck Reps/Minutes 5x Comments cues for gentle shoulder shrugs and rolls Side bilateral Reps/Minutes 5x Manual Therapy Treatment Soft Tissue Mobilization c/s, t/s Body Location ES Intensity/Depth Moderate Comments sitting and supine Joint Mobilizations first rib Comments next session Self-Care/Home Management Treatment Education Patient Education Body Mechanics,Home Exercise Program,Posture Other Education deep breathing PT-OP-R Modalities Start: 02/15/23 13:17 Freq: Status: Active Protocol: Document 02/20/23 09:32 SAK (Rec: 02/20/23 10:31 [facility] [id number]) Hot Pack/Cold Pack Treatment Hot Pack Location c/s Patient Position Hooklying Treatment Duration (minutes) 15 Patient Tolerance Good Infrared Treatment Treatment right c/s Duration (Minutes) 6 Body Position Sitting Continuous/Pulsed Continuous Program or Protocal chronic joint pain and stiffness Comments from C2 to C7 laterally PT-OP-T Assessment and Plan Start: 02/15/23 13:17 Freq: Status: Active Protocol: Document 02/23/23 09:30 [facility] (Rec: 02/23/23 10:30 SAK [id number]) Physical Therapy Assessment Impairments Impairments Activity Tolerance,Pain,ROM Goals Three Impairment activity tolerance Impairment Neck disability index score 57 % Short Term Goal (STG) Decrease Neck disability index score to no greater than 45% as measure of improved activity tolerance STG Duration 03/18/23 Usp Goal (LTG) Decrease neck disability index score to no greater than 30% as measure of improved activity tolerance and quality of life LTG Duration 04/17/23 Two Impairment dec neck ROM Impairment difficult and painful to turn head for safe driving Short Term Goal (STG) Patient to be instructed in ROM exercises for cervical spine STG Duration 03/18/23 [employer] Goal (LTG) Patient to be independent and compliant with HEP and patient to report at least 75% improvement in ability to turn her head for driving, neck ROM WFL. LTG Duration 04/17/23 One Impairment function-limiting neck pain Impairment as high as 8/10 Short Term Goal (STG) decrease pain to no greater than 6/10 with all usual activities STG Duration 03/18/23 Usp Goal (LTG) Decrease pain to no greater than 3/10 to allow patient to return to prior level of function LTG Duration 04/17/23 Assessment Summary Assessment Added cervical SNAG technique with for c/s rotation with education on rationale using spine model (done sitting and supine with emphasis on gentle , further emphasis on imortance of neutral postural alignment. Patient may benefit from 1st rib mobilization. Physical Therapy Plan Frequency and Duration Frequency of Treatment 2x/Week Duration of treatment (weeks) 8 Plan of Care Start Date 02/15/23 Plan of Care End Date 04/17/23 Therapeutic Interventions Therapeutic Interventions Home Exercise Program,Manual Therapy,Patient/Caregiver Education,Self-Care/Home Management,Soft Tissue Mobilization,Taping, Therapeutic Activities, Therapeutic Exercises Modalities Electric Stimulation,Hot Packs ,Infrared Therapy,Traction- Mechanical,Ultrasound Next Visit Focus/Plan Next Note Type Treatment Note Next Visit Plan Continue gentle ther ex progression and manual therapy for postural correction, c/s ROM, decreased soft tissue tension.
--- NOTE | 2023-03-08 11:07 | PT.OTN ---
Current Diagnoses Cervicalgia (03/07/23) Abnormal posture (03/07/23) Weakness (03/07/23) Physical Therapy Treatment Note PT-OP-A Visit Information Start: 02/15/23 13:17 Freq: Status: Active Protocol: Document 03/07/23 13:19 SAK (Rec: 03/07/23 14:04 SAK [id number]) Out-Patient Physical Therapy Visit Information Visit Information Visit Type Treatment Note Visit Start Time 13:16 Visit Stop Time 14:00 Total Visit Minutes 45 Visit Number 3 Evaluation Information Evaluation Date 02/20/23 PT-OP-B Current Condition Start: 02/15/23 13:17 Freq: Status: Active Protocol: Document 03/07/23 13:19 SAK (Rec: 03/07/23 14:04 SAK [id number]) Current Condition History of Current Condition Onset Date 10+ years Current Complaints worsening pain, unbearable 2-2 1/2 yrs ago History of Current Condition gradual worsening of neck pain , now radiating into right UE. 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 Has done accupuncture, PT with [facility]: ther ex, e-stim , trial traction not tolerated , chiropractic not helpful. Can't tolerate any medications except Tylenol; very sensitive to drugs. Saw Dr. Jo yesterday; has nodule right side of neck wants to biopsy but location makes it difficulty, will look at again in 6 months. Pain inc with looking down, turning neck to drive, reading, gardening, driving. Denies N/T. Has worn cervical collar which is somewhat helpful but irritates neck nodule. Sometimes links hands behind head and pushes in to get some relief. Uses heating pad for temporary relief. Can't sleep in preferred position (sidelying) Prior Treatments and Tests MRI 2020: multilevel degenerative disc disease and arthropathy mild to mod left sided central stenosis C4-5 and C5-6 x-ray 2020: spinal stenosis, DDD mid to lower cervical spine most prominent at C56 level. Min anterolisthesis C4 -5 and C6-7 Injection c/s, no effect. Treatment Goals Patient/Caregiver Goals decrease pain, improve activity tolerance PT-OP-C Subjective Start: 02/15/23 13:17 Freq: Status: Active Protocol: Document 03/07/23 13:19 SAK (Rec: 03/07/23 14:04 [facility] [id number]) OP-PT Subjective Patient Comments Patient Comments Didn't tolerate Sci-Fit, reporting hip and back pain plus extra walking into grocery store after. Doesn't think doing towel exercises correctly. By the end of the day has regular pain but sometimes doesn't come on as fast or get as high, feels PT helping. OP-PT Pain Assessment Pain Behaviors Pain Behaviors Calling Out,Guarding,Holding Area,Wincing PT-OP-H Neuro Start: 02/15/23 13:17 Freq: Status: Active Protocol: Document 02/15/23 13:17 [facility] (Rec: 02/15/23 14:35 [facility] [id number]) Sensation Evaluation Gross Sensation Gross Sensation WNL PT-OP-J Posture/Palpation/Skin Start: 02/15/23 13:17 Freq: Status: Active Protocol: Document 02/15/23 13:17 [facility] (Rec: 02/15/23 14:35 [facility] [id number]) Posture Evaluation Position Sitting Head/C-Spine Posture Rotated Right,Forward Head T-Spine Posture Increased Kyphosis Shoulder Posture (R) Elevated Arm Posture (L) Internally Rotated,(R) Internally Rotated Palpation Assessment Location c/s Palpation Location right facet joings Palpation Findings Soft Tissue Tightness,Muscle Guarding,Tenderness PT-OP-K Range of Motion Start: 02/15/23 13:17 Freq: Status: Active Protocol: Document 02/15/23 13:17 [facility] (Rec: 02/15/23 14:35 [facility] [id number]) Cervical Spine Range of Motion Cervical Spine Active Flexion 65 Extension 41 Rotation Left 37 Rotation Right 57 Lateral Flexion Left 35 Lateral Flexion Right 18 ROM Limitations Bony Restriction,Pain Shoulder Goniometric Range of Motion Shoulder brook Shoulder ROM WFL Yes PT-OP-L Special Tests Start: 02/15/23 13:17 Freq: Status: Active Protocol: Document 02/15/23 13:17 [facility] (Rec: 02/15/23 14:35 [facility] [id number]) Special Tests Cervical Spine Special Tests Alar Ligament Test Results - C2 Side [place] Test Results - C1 Side [place] Test Results - Vertebral Artery Test Results - Foraminal Compression Test Results + inc pain Traction Test Results + inc pain Shoulder Special Tests Drop Arm Rotator Cuff Test Results - PT-OP-M Strength Start: 02/15/23 13:17 Freq: Status: Active Protocol: Document 02/15/23 13:17 [facility] (Rec: 02/15/23 14:35 [facility] [id number]) Cervical Spine Strength Cervical Spine Manual Muscle Testing Testing Position Sitting Flexion (C1-2) 4 Good Extension 4 Good Rotation Left 4 Good Rotation Right 4 Good Lateral Flexion Left (C3) 4 Good Lateral Flexion Right (C3) 4 Good Comments painful PT-OP-Q Treatments Start: 02/15/23 13:17 Freq: Status: Active Protocol: Document 03/07/23 13:19 [facility] (Rec: 03/08/23 11:06 [facility] [id number]) Therapeutic Exercises Supine Exercises chin tuck Reps/Minutes 3x Comments verbal and tactile guidance deep breathing Supine Exercise Name abdominal, lateral ribcage, upper ribcage, posterior ribcage Reps/Minutes 5 min Comments verbal and manual cues contract relax eye gaze Reps/Minutes 3reps x 2 Comments followed by AROM, SNAG c/s rotation Side bilateral Reps/Minutes 10x Comments painfree ROM Sitting Exercises pec stretch Sitting Exercise Name manual Reps/Minutes 2x10 Comments emphasis on deep breathing Trunk rotation Reps/Minutes 2x each side Comments cues for gentle, take deep breath shoulder shrugs and rolls Side bilateral Reps/Minutes 5x Manual Therapy Treatment Soft Tissue Mobilization c/s, t/s Body Location ES, UT, LS, SCM Mobilization Type Myofascial Release,Strumming, Sustained Pressure Intensity/Depth Moderate Comments sitting and supine Joint Mobilizations first rib Comments next session Self-Care/Home Management Treatment Education Patient Education Body Mechanics,Home Exercise Program,Posture Other Education continue deep breathing ex for dec muscle tension and pain PT-OP-R Modalities Start: 02/15/23 13:17 Freq: Status: Active Protocol: Document 03/07/23 13:19 [facility] (Rec: 03/08/23 11:06 [facility] [id number]) Infrared Treatment Treatment right c/s Duration (Minutes) 6 Body Position Sitting Continuous/Pulsed Continuous Program or Protocal chronic joint pain and stiffness Comments from C2 to C7 laterally PT-OP-T Assessment and Plan Start: 02/15/23 13:17 Freq: Status: Active Protocol: Document 03/07/23 13:19 [facility] (Rec: 03/07/23 14:04 [facility] [id number]) Physical Therapy Assessment Impairments Impairments Activity Tolerance,Pain,ROM Goals Three Impairment activity tolerance Impairment Neck disability index score 57 % Short Term Goal (STG) Decrease Neck disability index score to no greater than 45% as measure of improved activity tolerance STG Duration 03/18/23 [employer] Goal (LTG) Decrease neck disability index score to no greater than 30% as measure of improved activity tolerance and quality of life LTG Duration 04/17/23 Two Impairment dec neck ROM Impairment difficult and painful to turn head for safe driving Short Term Goal (STG) Patient to be instructed in ROM exercises for cervical spine STG Duration 03/18/23 [employer] Goal (LTG) Patient to be independent and compliant with HEP and patient to report at least 75% improvement in ability to turn her head for driving, neck ROM WFL. LTG Duration 04/17/23 One Impairment function-limiting neck pain Impairment as high as 8/10 Short Term Goal (STG) decrease pain to no greater than 6/10 with all usual activities STG Duration 03/18/23 Group Home Goal (LTG) Decrease pain to no greater than 3/10 to allow patient to return to prior level of function LTG Duration 04/17/23 Assessment Summary Assessment Patient noting some improvement. Was not performing SNAG technique correctly but improved after instruction, PT stressed not push into pain. Patient is upper chest breather, some improvement with ongoing instruction and practice in deep breathing techniques. Physical Therapy Plan Frequency and Duration Frequency of Treatment 2x/Week Duration of treatment (weeks) 8 Plan of Care Start Date 02/15/23 Plan of Care End Date 04/17/23 Therapeutic Interventions Therapeutic Interventions Home Exercise Program,Manual Therapy,Patient/Caregiver Education,Self-Care/Home Management,Soft Tissue Mobilization,Taping, Therapeutic Activities, Therapeutic Exercises Modalities Electric Stimulation,Hot Packs ,Infrared Therapy,Traction- Mechanical,Ultrasound Next Visit Focus/Plan Next Note Type Treatment Note Next Visit Plan Check first rib positioning and mobilize as indicated. Continue gentle ther ex progression as tolerated. Continue breathing education for dec muscle tension and pain. Modalities and manual therapy PRN.
--- NOTE | 2023-03-10 10:48 | PT.OTN ---
Current Diagnoses Cervicalgia (03/10/23) Abnormal posture (03/10/23) Weakness (03/10/23) Physical Therapy Treatment Note PT-OP-A Visit Information Start: 02/15/23 13:17 Freq: Status: Active Protocol: Document 03/10/23 10:01 SP (Rec: 03/10/23 10:52 SP [id number]) Out-Patient Physical Therapy Visit Information Visit Information Visit Type Treatment Note Visit Start Time 10:01 Visit Stop Time 10:48 Total Visit Minutes 47 Visit Number 4 Number of BARK SPUDDER Visits 1 Evaluation Information Evaluation Date 02/20/23 PT-OP-B Current Condition Start: 02/15/23 13:17 Freq: Status: Active Protocol: Document 03/07/23 13:19 SAK (Rec: 03/07/23 14:04 SAK [id number]) Current Condition History of Current Condition Onset Date 10+ years Current Complaints worsening pain, unbearable 2-2 1/2 yrs ago History of Current Condition gradual worsening of neck pain , now radiating into right UE. 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 Has done accupuncture, PT with [facility]: ther ex, e-stim , trial traction not tolerated , chiropractic not helpful. Can't tolerate any medications except Tylenol; very sensitive to drugs. Saw Dr. Jo yesterday; has nodule right side of neck wants to biopsy but location makes it difficulty, will look at again in 6 months. Pain inc with looking down, turning neck to drive, reading, gardening, driving. Denies N/T. Has worn cervical collar which is somewhat helpful but irritates neck nodule. Sometimes links hands behind head and pushes in to get some relief. Uses heating pad for temporary relief. Can't sleep in preferred position (sidelying) Prior Treatments and Tests MRI 2020: multilevel degenerative disc disease and arthropathy mild to mod left sided central stenosis C4-5 and C5-6 x-ray 2020: spinal stenosis, DDD mid to lower cervical spine most prominent at C56 level. Min anterolisthesis C4 -5 and C6-7 Injection c/s, no effect. Treatment Goals Patient/Caregiver Goals decrease pain, improve activity tolerance PT-OP-C Subjective Start: 02/15/23 13:17 Freq: Status: Active Protocol: Document 03/10/23 10:01 SP (Rec: 03/10/23 10:52 SP [id number]) OP-PT Subjective Patient Comments Patient Comments Pt reports neck felt alot better after last tx but was unsure if was because of her patch or the manual massage. So she tried just patch yesterday and noted still lateral R neck pain so assuming the manual helped more of a compliment. Wanting to continue manual to help neck feel better. PT-OP-H Neuro Start: 02/15/23 13:17 Freq: Status: Active Protocol: Document 02/15/23 13:17 SAK (Rec: 02/15/23 14:35 SAK [id number]) Sensation Evaluation Gross Sensation Gross Sensation WNL PT-OP-J Posture/Palpation/Skin Start: 02/15/23 13:17 Freq: Status: Active Protocol: Document 02/15/23 13:17 SAK (Rec: 02/15/23 14:35 SAK [id number]) Posture Evaluation Position Sitting Head/C-Spine Posture Rotated Right,Forward Head T-Spine Posture Increased Kyphosis Shoulder Posture (R) Elevated Arm Posture (L) Internally Rotated,(R) Internally Rotated Palpation Assessment Location c/s Palpation Location right facet joings Palpation Findings Soft Tissue Tightness,Muscle Guarding,Tenderness PT-OP-K Range of Motion Start: 02/15/23 13:17 Freq: Status: Active Protocol: Document 02/15/23 13:17 SAK (Rec: 02/15/23 14:35 SAK [id number]) Cervical Spine Range of Motion Cervical Spine Active Flexion 65 Extension 41 Rotation Left 37 Rotation Right 57 Lateral Flexion Left 35 Lateral Flexion Right 18 ROM Limitations Bony Restriction,Pain Shoulder Goniometric Range of Motion Shoulder brook Shoulder ROM WFL Yes PT-OP-L Special Tests Start: 02/15/23 13:17 Freq: Status: Active Protocol: Document 02/15/23 13:17 SAK (Rec: 02/15/23 14:35 SAK [id number]) Special Tests Cervical Spine Special Tests Alar Ligament Test Results - C2 Side [place] Test Results - C1 Side [place] Test Results - Vertebral Artery Test Results - Foraminal Compression Test Results + inc pain Traction Test Results + inc pain Shoulder Special Tests Drop Arm Rotator Cuff Test Results - PT-OP-M Strength Start: 02/15/23 13:17 Freq: Status: Active Protocol: Document 02/15/23 13:17 SAK (Rec: 02/15/23 14:35 [facility] [id number]) Cervical Spine Strength Cervical Spine Manual Muscle Testing Testing Position Sitting Flexion (C1-2) 4 Good Extension 4 Good Rotation Left 4 Good Rotation Right 4 Good Lateral Flexion Left (C3) 4 Good Lateral Flexion Right (C3) 4 Good Comments painful PT-OP-Q Treatments Start: 02/15/23 13:17 Freq: Status: Active Protocol: Document 03/10/23 10:01 SP (Rec: 03/10/23 10:52 SP [id number]) Therapeutic Exercises Supine Exercises chin tuck Reps/Minutes 3x Comments verbal and tactile guidance deep breathing Supine Exercise Name abdominal, lateral ribcage, upper ribcage, posterior ribcage Reps/Minutes 5 min Comments verbal and manual cues with ed BUE on belly for self feedback Standing Exercises wall posture Standing Exercise Name added HEP, not performed, discussed good understanding Comments good understanding improve postural alignment balance daily ADLs Other Exercises self STMs Other Exercise Name rhomboid, UT ball wall (in sock), theracane:UT, ES Equipment Used theracane/ball wall inter scap Comments good response MWM, head nods/ turns, ballrolling- good feedback response Manual Therapy Treatment Soft Tissue Mobilization c/s, t/s Body Location R>L ES, UT, LS, SCM Mobilization Type Myofascial Release,Strumming, Sustained Pressure Intensity/Depth Moderate Comments sitting and supine Joint Mobilizations first rib Joint L Direction gentle caudal with exhale and AAROM LUE FF Body Position Hooklying Comments I-II gentle downward PT-OP-R Modalities Start: 02/15/23 13:17 Freq: Status: Active Protocol: Document 03/07/23 13:19 [facility] (Rec: 03/08/23 11:06 [facility] [id number]) Infrared Treatment Treatment right c/s Duration (Minutes) 6 Body Position Sitting Continuous/Pulsed Continuous Program or Protocal chronic joint pain and stiffness Comments from C2 to C7 laterally PT-OP-T Assessment and Plan Start: 02/15/23 13:17 Freq: Status: Active Protocol: Document 03/10/23 10:01 SP (Rec: 03/10/23 10:52 SP [id number]) Physical Therapy Assessment Goals Three Impairment activity tolerance Impairment Neck disability index score 57 % Short Term Goal (STG) Decrease Neck disability index score to no greater than 45% as measure of improved activity tolerance STG Duration 03/18/23 Correction Goal (LTG) Decrease neck disability index score to no greater than 30% as measure of improved activity tolerance and quality of life LTG Duration 04/17/23 Two Impairment dec neck ROM Impairment difficult and painful to turn head for safe driving Short Term Goal (STG) Patient to be instructed in ROM exercises for cervical spine STG Duration 03/18/23 Chairman Of The Board Goal (LTG) Patient to be independent and compliant with HEP and patient to report at least 75% improvement in ability to turn her head for driving, neck ROM WFL. LTG Duration 04/17/23 One Impairment function-limiting neck pain Impairment as high as 8/10 Short Term Goal (STG) decrease pain to no greater than 6/10 with all usual activities STG Duration 03/18/23 Correction Goal (LTG) Decrease pain to no greater than 3/10 to allow patient to return to prior level of function LTG Duration 04/17/23 Assessment Summary Assessment Pt responded well to manual and understanding of self application by end tx for carryover response use theracane and ball wall for home application. Pt reports can turn her head more before left. Physical Therapy Plan Frequency and Duration Frequency of Treatment 2x/Week Duration of treatment (weeks) 8 Plan of Care Start Date 02/15/23 Plan of Care End Date 04/17/23 Therapeutic Interventions Therapeutic Interventions Home Exercise Program,Manual Therapy,Patient/Caregiver Education,Self-Care/Home Management,Soft Tissue Mobilization,Taping, Therapeutic Activities, Therapeutic Exercises Modalities Electric Stimulation,Hot Packs ,Infrared Therapy,Traction- Mechanical,Ultrasound Next Visit Focus/Plan Next Note Type Treatment Note Next Visit Plan Check first rib positioning and mobilize as indicated. Continue gentle ther ex progression as tolerated. Continue breathing education for dec muscle tension and pain. Modalities and manual therapy PRN.
--- NOTE | 2023-03-14 11:34 | PT.OTN ---
Current Diagnoses Cervicalgia (03/14/23) Abnormal posture (03/14/23) Weakness (03/14/23) Physical Therapy Treatment Note PT-OP-A Visit Information Start: 02/15/23 13:17 Freq: Status: Active Protocol: Document 03/14/23 10:38 SAK (Rec: 03/14/23 11:14 SAK [id number]) Out-Patient Physical Therapy Visit Information Visit Information Visit Type Treatment Note Visit Start Time 10:32 Visit Stop Time 11:27 Total Visit Minutes 55 Visit Number 5 Number of CRANE OPERATOR Visits 0 Evaluation Information Evaluation Date 02/20/23 PT-OP-B Current Condition Start: 02/15/23 13:17 Freq: Status: Active Protocol: Document 03/07/23 13:19 SAK (Rec: 03/07/23 14:04 SAK [id number]) Current Condition History of Current Condition Onset Date 10+ years Current Complaints worsening pain, unbearable 2-2 1/2 yrs ago History of Current Condition gradual worsening of neck pain , now radiating into right UE. 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 Has done accupuncture, PT with [facility]: ther ex, e-stim , trial traction not tolerated , chiropractic not helpful. Can't tolerate any medications except Tylenol; very sensitive to drugs. Saw Dr. Jo yesterday; has nodule right side of neck wants to biopsy but location makes it difficulty, will look at again in 6 months. Pain inc with looking down, turning neck to drive, reading, gardening, driving. Denies N/T. Has worn cervical collar which is somewhat helpful but irritates neck nodule. Sometimes links hands behind head and pushes in to get some relief. Uses heating pad for temporary relief. Can't sleep in preferred position (sidelying) Prior Treatments and Tests MRI 2020: multilevel degenerative disc disease and arthropathy mild to mod left sided central stenosis C4-5 and C5-6 x-ray 2020: spinal stenosis, DDD mid to lower cervical spine most prominent at C56 level. Min anterolisthesis C4 -5 and C6-7 Injection c/s, no effect. Treatment Goals Patient/Caregiver Goals decrease pain, improve activity tolerance PT-OP-C Subjective Start: 02/15/23 13:17 Freq: Status: Active Protocol: Document 03/14/23 10:38 SAK (Rec: 03/14/23 11:14 [facility] [id number]) OP-PT Subjective Patient Comments Patient Comments Sore from turning mattress yesterday. Feels manual work in PT most helpful. PT-OP-H Neuro Start: 02/15/23 13:17 Freq: Status: Active Protocol: Document 02/15/23 13:17 SAK (Rec: 02/15/23 14:35 [facility] [id number]) Sensation Evaluation Gross Sensation Gross Sensation WNL PT-OP-J Posture/Palpation/Skin Start: 02/15/23 13:17 Freq: Status: Active Protocol: Document 02/15/23 13:17 SAK (Rec: 02/15/23 14:35 [facility] [id number]) Posture Evaluation Position Sitting Head/C-Spine Posture Rotated Right,Forward Head T-Spine Posture Increased Kyphosis Shoulder Posture (R) Elevated Arm Posture (L) Internally Rotated,(R) Internally Rotated Palpation Assessment Location c/s Palpation Location right facet joings Palpation Findings Soft Tissue Tightness,Muscle Guarding,Tenderness PT-OP-K Range of Motion Start: 02/15/23 13:17 Freq: Status: Active Protocol: Document 02/15/23 13:17 [facility] (Rec: 02/15/23 14:35 [facility] [id number]) Cervical Spine Range of Motion Cervical Spine Active Flexion 65 Extension 41 Rotation Left 37 Rotation Right 57 Lateral Flexion Left 35 Lateral Flexion Right 18 ROM Limitations Bony Restriction,Pain Shoulder Goniometric Range of Motion Shoulder brook Shoulder ROM WFL Yes PT-OP-L Special Tests Start: 02/15/23 13:17 Freq: Status: Active Protocol: Document 02/15/23 13:17 [facility] (Rec: 02/15/23 14:35 [facility] [id number]) Special Tests Cervical Spine Special Tests Alar Ligament Test Results - C2 Side [place] Test Results - C1 Side [place] Test Results - Vertebral Artery Test Results - Foraminal Compression Test Results + inc pain Traction Test Results + inc pain Shoulder Special Tests Drop Arm Rotator Cuff Test Results - PT-OP-M Strength Start: 02/15/23 13:17 Freq: Status: Active Protocol: Document 02/15/23 13:17 SAK (Rec: 02/15/23 14:35 [facility] [id number]) Cervical Spine Strength Cervical Spine Manual Muscle Testing Testing Position Sitting Flexion (C1-2) 4 Good Extension 4 Good Rotation Left 4 Good Rotation Right 4 Good Lateral Flexion Left (C3) 4 Good Lateral Flexion Right (C3) 4 Good Comments painful PT-OP-Q Treatments Start: 02/15/23 13:17 Freq: Status: Active Protocol: Document 03/14/23 10:38 [facility] (Rec: 03/14/23 11:14 [facility] [id number]) Therapeutic Exercises Supine Exercises pec stretch Reps/Minutes 2x30 Comments manual chin tuck Reps/Minutes 3x Comments verbal and tactile guidance deep breathing Supine Exercise Name abdominal, lateral ribcage, upper ribcage, posterior ribcage Reps/Minutes 5 min Comments verbal and manual cues with ed BUE on belly for self feedback contract relax eye gaze Reps/Minutes 3reps x 2 Comments followed by AROM, SNAG Sitting Exercises pec stretch Sitting Exercise Name manual Reps/Minutes 2x20 Comments emphasis on deep breathing Other Exercises self STMs Other Exercise Name reviewed Manual Therapy Treatment Soft Tissue Mobilization c/s, t/s Body Location R>L ES, UT, LS, SCM Mobilization Type Myofascial Release,Strumming, Sustained Pressure Intensity/Depth Moderate Comments sitting and supine Joint Mobilizations first rib Joint L Direction gentle caudal with exhale and AAROM LUE FF Body Position Hooklying Comments I-II gentle downward PT-OP-R Modalities Start: 02/15/23 13:17 Freq: Status: Active Protocol: Document 03/14/23 10:38 [facility] (Rec: 03/14/23 11:34 [facility] [id number]) Hot Pack/Cold Pack Treatment Hot Pack Location c/s Patient Position Hooklying Treatment Duration (minutes) 15 Patient Tolerance Good Comments slightly dizzy after, patient reports due to focus on deep breathing during heat as recommended. PT-OP-T Assessment and Plan Start: 02/15/23 13:17 Freq: Status: Active Protocol: Document 03/14/23 10:38 [facility] (Rec: 03/14/23 11:14 [facility] [id number]) Physical Therapy Assessment Goals Three Impairment activity tolerance Impairment Neck disability index score 57 % Short Term Goal (STG) Decrease Neck disability index score to no greater than 45% as measure of improved activity tolerance STG Duration 03/18/23 Half-Way Goal (LTG) Decrease neck disability index score to no greater than 30% as measure of improved activity tolerance and quality of life LTG Duration 04/17/23 Two Impairment dec neck ROM Impairment difficult and painful to turn head for safe driving Short Term Goal (STG) Patient to be instructed in ROM exercises for cervical spine STG Duration 03/18/23 Batcher Operator Goal (LTG) Patient to be independent and compliant with HEP and patient to report at least 75% improvement in ability to turn her head for driving, neck ROM WFL. LTG Duration 04/17/23 One Impairment function-limiting neck pain Impairment as high as 8/10 Short Term Goal (STG) decrease pain to no greater than 6/10 with all usual activities STG Duration 03/18/23 Batcher Operator Goal (LTG) Decrease pain to no greater than 3/10 to allow patient to return to prior level of function LTG Duration 04/17/23 Assessment Summary Assessment Patient exacerbated pain by turning mattress. Decreased muscle tension on right after manual treatment with improved first rib positioning. Physical Therapy Plan Frequency and Duration Frequency of Treatment 2x/Week Duration of treatment (weeks) 8 Plan of Care Start Date 02/15/23 Plan of Care End Date 04/17/23 Therapeutic Interventions Therapeutic Interventions Home Exercise Program,Manual Therapy,Patient/Caregiver Education,Self-Care/Home Management,Soft Tissue Mobilization,Taping, Therapeutic Activities, Therapeutic Exercises Modalities Electric Stimulation,Hot Packs ,Infrared Therapy,Traction- Mechanical,Ultrasound Next Visit Focus/Plan Next Note Type Treatment Note Next Visit Plan Continue with postural correction ex, gentle ROM, manual techniques and modalities to decrease pain and improve neck function.
--- NOTE | 2023-03-16 13:38 | PT.OTN ---
Current Diagnoses Cervicalgia (03/16/23) Abnormal posture (03/16/23) Weakness (03/16/23) Physical Therapy Treatment Note PT-OP-A Visit Information Start: 02/15/23 13:17 Freq: Status: Active Protocol: Document 03/16/23 12:55 SP (Rec: 03/16/23 13:39 SP [id number]) Out-Patient Physical Therapy Visit Information Visit Information Visit Type Treatment Note Visit Start Time 12:55 Visit Stop Time 13:38 Total Visit Minutes 48 Visit Number 6 Number of HL7 DEVELOPER Visits 1 Evaluation Information Evaluation Date 02/20/23 PT-OP-B Current Condition Start: 02/15/23 13:17 Freq: Status: Active Protocol: Document 03/07/23 13:19 SAK (Rec: 03/07/23 14:04 SAK [id number]) Current Condition History of Current Condition Onset Date 10+ years Current Complaints worsening pain, unbearable 2-2 1/2 yrs ago History of Current Condition gradual worsening of neck pain , now radiating into right UE. 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 Has done accupuncture, PT with [facility]: ther ex, e-stim , trial traction not tolerated , chiropractic not helpful. Can't tolerate any medications except Tylenol; very sensitive to drugs. Saw Dr. Jo yesterday; has nodule right side of neck wants to biopsy but location makes it difficulty, will look at again in 6 months. Pain inc with looking down, turning neck to drive, reading, gardening, driving. Denies N/T. Has worn cervical collar which is somewhat helpful but irritates neck nodule. Sometimes links hands behind head and pushes in to get some relief. Uses heating pad for temporary relief. Can't sleep in preferred position (sidelying) Prior Treatments and Tests MRI 2020: multilevel degenerative disc disease and arthropathy mild to mod left sided central stenosis C4-5 and C5-6 x-ray 2020: spinal stenosis, DDD mid to lower cervical spine most prominent at C56 level. Min anterolisthesis C4 -5 and C6-7 Injection c/s, no effect. Treatment Goals Patient/Caregiver Goals decrease pain, improve activity tolerance PT-OP-C Subjective Start: 02/15/23 13:17 Freq: Status: Active Protocol: Document 03/16/23 12:55 SP (Rec: 03/16/23 13:39 SP [id number]) OP-PT Subjective Patient Comments Patient Comments Pt reports was more sore after last tx with deeper work but found more calmed down, cords not as tight. PT-OP-H Neuro Start: 02/15/23 13:17 Freq: Status: Active Protocol: Document 02/15/23 13:17 SAK (Rec: 02/15/23 14:35 SAK [id number]) Sensation Evaluation Gross Sensation Gross Sensation WNL PT-OP-J Posture/Palpation/Skin Start: 02/15/23 13:17 Freq: Status: Active Protocol: Document 02/15/23 13:17 SAK (Rec: 02/15/23 14:35 SAK [id number]) Posture Evaluation Position Sitting Head/C-Spine Posture Rotated Right,Forward Head T-Spine Posture Increased Kyphosis Shoulder Posture (R) Elevated Arm Posture (L) Internally Rotated,(R) Internally Rotated Palpation Assessment Location c/s Palpation Location right facet joings Palpation Findings Soft Tissue Tightness,Muscle Guarding,Tenderness PT-OP-K Range of Motion Start: 02/15/23 13:17 Freq: Status: Active Protocol: Document 02/15/23 13:17 SAK (Rec: 02/15/23 14:35 SAK [id number]) Cervical Spine Range of Motion Cervical Spine Active Flexion 65 Extension 41 Rotation Left 37 Rotation Right 57 Lateral Flexion Left 35 Lateral Flexion Right 18 ROM Limitations Bony Restriction,Pain Shoulder Goniometric Range of Motion Shoulder brook Shoulder ROM WFL Yes PT-OP-L Special Tests Start: 02/15/23 13:17 Freq: Status: Active Protocol: Document 02/15/23 13:17 SAK (Rec: 02/15/23 14:35 SAK [id number]) Special Tests Cervical Spine Special Tests Alar Ligament Test Results - C2 Side [place] Test Results - C1 Side [place] Test Results - Vertebral Artery Test Results - Foraminal Compression Test Results + inc pain Traction Test Results + inc pain Shoulder Special Tests Drop Arm Rotator Cuff Test Results - PT-OP-M Strength Start: 02/15/23 13:17 Freq: Status: Active Protocol: Document 02/15/23 13:17 SAK (Rec: 02/15/23 14:35 SAK [id number]) Cervical Spine Strength Cervical Spine Manual Muscle Testing Testing Position Sitting Flexion (C1-2) 4 Good Extension 4 Good Rotation Left 4 Good Rotation Right 4 Good Lateral Flexion Left (C3) 4 Good Lateral Flexion Right (C3) 4 Good Comments painful PT-OP-Q Treatments Start: 02/15/23 13:17 Freq: Status: Active Protocol: Document 03/16/23 12:55 SP (Rec: 03/16/23 13:39 SP [id number]) Therapeutic Exercises Supine Exercises scaption Side right Resistance AAROM 5%A end feel up top/ initial against gravity down, rest AROM Reps/Minutes 6 reps, 3 reps- stopped at 3 reps due to neck compensations (tiring) Comments cued maintain elbow fairly straight, improved control less muscle shakiness contract relax eye gaze Reps/Minutes 3reps x 2 Comments followed by AROM, SNAG Prone Exercises open book Prone Exercise Name segmental arm/scap glide/ TS rotation Side bilateral Reps/Minutes x5 reps Comments improved no UT Sitting Exercises Trunk rotation Equipment Used arms across chest Reps/Minutes 2x each side Comments cues for gentle, take deep breath shoulder shrugs and rolls Side bilateral Reps/Minutes 5x Manual Therapy Treatment Soft Tissue Mobilization c/s, t/s Body Location R>L ES, UT, LS, SCM Mobilization Type Myofascial Release,Strumming, Sustained Pressure Intensity/Depth Moderate Comments sitting and supine Joint Mobilizations first rib Joint L Direction gentle caudal with exhale and AAROM LUE FF Body Position Hooklying Comments I-II gentle downward PT-OP-R Modalities Start: 02/15/23 13:17 Freq: Status: Active Protocol: Document 03/14/23 10:38 SAK (Rec: 03/14/23 11:34 SAK [id number]) Hot Pack/Cold Pack Treatment Hot Pack Location c/s Patient Position Hooklying Treatment Duration (minutes) 15 Patient Tolerance Good Comments slightly dizzy after, patient reports due to focus on deep breathing during heat as recommended. PT-OP-T Assessment and Plan Start: 02/15/23 13:17 Freq: Status: Active Protocol: Document 03/16/23 12:55 SP (Rec: 03/16/23 13:39 SP [id number]) Physical Therapy Assessment Goals Three Impairment activity tolerance Impairment Neck disability index score 57 % Short Term Goal (STG) Decrease Neck disability index score to no greater than 45% as measure of improved activity tolerance STG Duration 03/18/23 Senior Storage Administrator Goal (LTG) Decrease neck disability index score to no greater than 30% as measure of improved activity tolerance and quality of life LTG Duration 04/17/23 Two Impairment dec neck ROM Impairment difficult and painful to turn head for safe driving Short Term Goal (STG) Patient to be instructed in ROM exercises for cervical spine STG Duration 03/18/23 Halfway Goal (LTG) Patient to be independent and compliant with HEP and patient to report at least 75% improvement in ability to turn her head for driving, neck ROM WFL. LTG Duration 04/17/23 One Impairment function-limiting neck pain Impairment as high as 8/10 Short Term Goal (STG) decrease pain to no greater than 6/10 with all usual activities STG Duration 03/18/23 Halfway Goal (LTG) Decrease pain to no greater than 3/10 to allow patient to return to prior level of function LTG Duration 04/17/23 Assessment Summary Assessment Pt responded well, able to move into L UE scaption with light to no AAROM support and no pain post manual. She mentioned eye gaze contract/ relax CS/head turns gaining ROM finds helpful at home and able look over shld little better to see when driving. Good segmental with cuing added openbook to HEP with better understanding fluid ROM and no UT recruitment/ more LT facilitation. Physical Therapy Plan Frequency and Duration Frequency of Treatment 2x/Week Duration of treatment (weeks) 8 Plan of Care Start Date 02/15/23 Plan of Care End Date 04/17/23 Therapeutic Interventions Therapeutic Interventions Home Exercise Program,Manual Therapy,Patient/Caregiver Education,Self-Care/Home Management,Soft Tissue Mobilization,Taping, Therapeutic Activities, Therapeutic Exercises Modalities Electric Stimulation,Hot Packs ,Infrared Therapy,Traction- Mechanical,Ultrasound Next Visit Focus/Plan Next Note Type Treatment Note Next Visit Plan Recheck open book post manual. POC: Continue with postural correction ex, gentle ROM, manual techniques and modalities to decrease pain and improve neck function.
--- NOTE | 2023-03-23 16:20 | PT.OTN ---
Current Diagnoses Cervicalgia (03/23/23) Abnormal posture (03/23/23) Weakness (03/23/23) Physical Therapy Treatment Note PT-OP-A Visit Information Start: 02/15/23 13:17 Freq: Status: Active Protocol: Document 03/23/23 10:30 SAK (Rec: 03/23/23 10:52 SAK [id number]) Out-Patient Physical Therapy Visit Information Visit Information Visit Type Treatment Note Visit Start Time 10:30 Visit Stop Time 11:25 Total Visit Minutes 55 Visit Number 7 Number of S[employer]IOR [employer] SOFTWARE DEVELOPER Visits 0 Evaluation Information Evaluation Date 02/20/23 PT-OP-B Current Condition Start: 02/15/23 13:17 Freq: Status: Active Protocol: Document 03/23/23 10:30 SAK (Rec: 03/23/23 11:15 SAK [id number]) Current Condition History of Current Condition Onset Date 10+ years Current Complaints worsening pain, unbearable 2-2 1/2 yrs ago History of Current Condition gradual worsening of neck pain , now radiating into right UE. 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 Has done accupuncture, PT with [facility] [employer]: ther ex, e-stim , trial traction not tolerated , chiropractic not helpful. Can't tolerate any medications except Tylenol; very sensitive to drugs. Saw Dr. Jo yesterday; has nodule right side of neck wants to biopsy but location makes it difficulty, will look at again in 6 months. Pain inc with looking down, turning neck to drive, reading, gardening, driving. Denies N/T. Has worn cervical collar which is somewhat helpful but irritates neck nodule. Sometimes links hands behind head and pushes in to get some relief. Uses heating pad for temporary relief. Can't sleep in preferred position (sidelying) Prior Treatments and Tests MRI 2020: multilevel degenerative disc disease and arthropathy mild to mod left sided central stenosis C4-5 and C5-6 x-ray 2020: spinal stenosis, DDD mid to lower cervical spine most prominent at C56 level. Min anterolisthesis C4 -5 and C6-7 Injection c/s, no effect. PT-OP-C Subjective Start: 02/15/23 13:17 Freq: Status: Active Protocol: Document 03/23/23 10:30 SAK (Rec: 03/23/23 11:15 SAK [id number]) OP-PT Subjective Patient Comments Patient Comments Sore today from going to [employer] and a couple other stores, then returned home and had to do a walk around house with painters. I did way too much and I know I'm my own worst enemy. PT-OP-H Neuro Start: 02/15/23 13:17 Freq: Status: Active Protocol: Document 02/15/23 13:17 SAK (Rec: 02/15/23 14:35 [facility] [id number]) Sensation Evaluation Gross Sensation Gross Sensation WNL PT-OP-J Posture/Palpation/Skin Start: 02/15/23 13:17 Freq: Status: Active Protocol: Document 02/15/23 13:17 SAK (Rec: 02/15/23 14:35 [facility] [id number]) Posture Evaluation Position Sitting Head/C-Spine Posture Rotated Right,Forward Head T-Spine Posture Increased Kyphosis Shoulder Posture (R) Elevated Arm Posture (L) Internally Rotated,(R) Internally Rotated Palpation Assessment Location c/s Palpation Location right facet joings Palpation Findings Soft Tissue Tightness,Muscle Guarding,Tenderness PT-OP-K Range of Motion Start: 02/15/23 13:17 Freq: Status: Active Protocol: Document 02/15/23 13:17 SAK (Rec: 02/15/23 14:35 [facility] [id number]) Cervical Spine Range of Motion Cervical Spine Active Flexion 65 Extension 41 Rotation Left 37 Rotation Right 57 Lateral Flexion Left 35 Lateral Flexion Right 18 ROM Limitations Bony Restriction,Pain Shoulder Goniometric Range of Motion Shoulder brook Shoulder ROM WFL Yes PT-OP-L Special Tests Start: 02/15/23 13:17 Freq: Status: Active Protocol: Document 02/15/23 13:17 SAK (Rec: 02/15/23 14:35 [facility] [id number]) Special Tests Cervical Spine Special Tests Alar Ligament Test Results - C2 Side [place] Test Results - C1 Side [place] Test Results - Vertebral Artery Test Results - Foraminal Compression Test Results + inc pain Traction Test Results + inc pain Shoulder Special Tests Drop Arm Rotator Cuff Test Results - PT-OP-M Strength Start: 02/15/23 13:17 Freq: Status: Active Protocol: Document 02/15/23 13:17 SAK (Rec: 02/15/23 14:35 [facility] [id number]) Cervical Spine Strength Cervical Spine Manual Muscle Testing Testing Position Sitting Flexion (C1-2) 4 Good Extension 4 Good Rotation Left 4 Good Rotation Right 4 Good Lateral Flexion Left (C3) 4 Good Lateral Flexion Right (C3) 4 Good Comments painful PT-OP-Q Treatments Start: 02/15/23 13:17 Freq: Status: Active Protocol: Document 03/23/23 10:30 [facility] (Rec: 03/23/23 10:52 [facility] [id number]) Therapeutic Exercises Supine Exercises serratus punch Reps/Minutes 10x deep breathing Supine Exercise Name abdominal, lateral ribcage, upper ribcage, posterior ribcage Reps/Minutes 5 min Comments verbal and manual cues with ed BUE on belly for self feedback contract relax eye gaze Reps/Minutes 3reps x 2 Comments followed by AROM, SNAG c/s rotation Side bilateral Reps/Minutes 3x Comments painfree ROM Prone Exercises open book Prone Exercise Name segmental arm/scap glide/ TS rotation Side bilateral Reps/Minutes x5 reps Sitting Exercises Trunk rotation Equipment Used arms across chest Reps/Minutes 2x each side Comments cues for gentle, take deep breath shoulder shrugs and rolls Side bilateral Reps/Minutes 5x Manual Therapy Treatment Joint Mobilizations first rib Joint L Direction gentle caudal with exhale and AAROM LUE FF Body Position Hooklying Comments I-II gentle downward improved postion PT-OP-R Modalities Start: 02/15/23 13:17 Freq: Status: Active Protocol: Document 03/23/23 10:30 [facility] (Rec: 03/23/23 16:20 [facility] [id number]) Hot Pack/Cold Pack Treatment Hot Pack Location c/s Patient Position Hooklying Treatment Duration (minutes) 15 Patient Tolerance Good PT-OP-T Assessment and Plan Start: 02/15/23 13:17 Freq: Status: Active Protocol: Document 03/23/23 10:30 [facility] (Rec: 03/23/23 10:52 [facility] [id number]) Physical Therapy Assessment Goals Three Impairment activity tolerance Impairment Neck disability index score 57 % Short Term Goal (STG) Decrease Neck disability index score to no greater than 45% as measure of improved activity tolerance STG Duration 03/18/23 Nursing Home Goal (LTG) Decrease neck disability index score to no greater than 30% as measure of improved activity tolerance and quality of life LTG Duration 04/17/23 Two Impairment dec neck ROM Impairment difficult and painful to turn head for safe driving Short Term Goal (STG) Patient to be instructed in ROM exercises for cervical spine STG Duration 03/18/23 Jewelry Coater Goal (LTG) Patient to be independent and compliant with HEP and patient to report at least 75% improvement in ability to turn her head for driving, neck ROM WFL. LTG Duration 04/17/23 One Impairment function-limiting neck pain Impairment as high as 8/10 Short Term Goal (STG) decrease pain to no greater than 6/10 with all usual activities STG Duration 03/18/23 Jewelry Coater Goal (LTG) Decrease pain to no greater than 3/10 to allow patient to return to prior level of function LTG Duration 04/17/23 Physical Therapy Plan Frequency and Duration Frequency of Treatment 2x/Week Duration of treatment (weeks) 8 Plan of Care Start Date 02/15/23 Plan of Care End Date 04/17/23 Therapeutic Interventions Therapeutic Interventions Home Exercise Program,Manual Therapy,Patient/Caregiver Education,Self-Care/Home Management,Soft Tissue Mobilization,Taping, Therapeutic Activities, Therapeutic Exercises Modalities Electric Stimulation,Hot Packs ,Infrared Therapy,Traction- Mechanical,Ultrasound Next Visit Focus/Plan Next Note Type Treatment Note Next Visit Plan POC: Continue with postural correction ex, gentle ROM, manual techniques and modalities to decrease pain and improve neck function.
--- NOTE | 2023-03-28 11:34 | PT.OTN ---
Current Diagnoses Cervicalgia (03/28/23) Abnormal posture (03/28/23) Weakness (03/28/23) Physical Therapy Treatment Note PT-OP-A Visit Information Start: 02/15/23 13:17 Freq: Status: Active Protocol: Document 03/28/23 10:31 SAK (Rec: 03/28/23 10:55 [facility] [id number]) Out-Patient Physical Therapy Visit Information Visit Information Visit Type Treatment Note Visit Start Time 10:30 Visit Stop Time 11:25 Total Visit Minutes 55 Visit Number 8 Number of STUDENT ACCOUNTS COORDINATOR Visits 0 Evaluation Information Evaluation Date 02/20/23 PT-OP-B Current Condition Start: 02/15/23 13:17 Freq: Status: Active Protocol: Document 03/28/23 10:31 SAK (Rec: 03/28/23 10:55 [facility] [id number]) Current Condition History of Current Condition Onset Date 10+ years Current Complaints worsening pain, unbearable 2-2 1/2 yrs ago History of Current Condition gradual worsening of neck pain , now radiating into right UE. 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 Has done accupuncture, PT with [facility]: ther ex, e-stim , trial traction not tolerated , chiropractic not helpful. Can't tolerate any medications except Tylenol; very sensitive to drugs. Saw Dr. Jo yesterday; has nodule right side of neck wants to biopsy but location makes it difficulty, will look at again in 6 months. Pain inc with looking down, turning neck to drive, reading, gardening, driving. Denies N/T. Has worn cervical collar which is somewhat helpful but irritates neck nodule. Sometimes links hands behind head and pushes in to get some relief. Uses heating pad for temporary relief. Can't sleep in preferred position (sidelying) Prior Treatments and Tests MRI 2020: multilevel degenerative disc disease and arthropathy mild to mod left sided central stenosis C4-5 and C5-6 x-ray 2020: spinal stenosis, DDD mid to lower cervical spine most prominent at C56 level. Min anterolisthesis C4 -5 and C6-7 Injection c/s, no effect. PT-OP-C Subjective Start: 02/15/23 13:17 Freq: Status: Active Protocol: Document 03/28/23 10:31 SAK (Rec: 03/28/23 10:55 [facility] [id number]) OP-PT Subjective Patient Comments Patient Comments Sore from doing paperwork and vacuuming. Has to do more physically after 2 years ago. Has had increased pain in neck as well as jaw after seeing dentist with him aggressively checking bridge. Sees Dr. Jo on Monday PT-OP-H Neuro Start: 02/15/23 13:17 Freq: Status: Active Protocol: Document 02/15/23 13:17 SAK (Rec: 02/15/23 14:35 [facility] [id number]) Sensation Evaluation Gross Sensation Gross Sensation WNL PT-OP-J Posture/Palpation/Skin Start: 02/15/23 13:17 Freq: Status: Active Protocol: Document 02/15/23 13:17 SAK (Rec: 02/15/23 14:35 [facility] [id number]) Posture Evaluation Position Sitting Head/C-Spine Posture Rotated Right,Forward Head T-Spine Posture Increased Kyphosis Shoulder Posture (R) Elevated Arm Posture (L) Internally Rotated,(R) Internally Rotated Palpation Assessment Location c/s Palpation Location right facet joings Palpation Findings Soft Tissue Tightness,Muscle Guarding,Tenderness PT-OP-K Range of Motion Start: 02/15/23 13:17 Freq: Status: Active Protocol: Document 02/15/23 13:17 SAK (Rec: 02/15/23 14:35 [facility] [id number]) Cervical Spine Range of Motion Cervical Spine Active Flexion 65 Extension 41 Rotation Left 37 Rotation Right 57 Lateral Flexion Left 35 Lateral Flexion Right 18 ROM Limitations Bony Restriction,Pain Shoulder Goniometric Range of Motion Shoulder brook Shoulder ROM WFL Yes PT-OP-L Special Tests Start: 02/15/23 13:17 Freq: Status: Active Protocol: Document 02/15/23 13:17 SAK (Rec: 02/15/23 14:35 [facility] [id number]) Special Tests Cervical Spine Special Tests Alar Ligament Test Results - C2 Side [place] Test Results - C1 Side [place] Test Results - Vertebral Artery Test Results - [place] Compression Test Results + inc pain Traction Test Results + inc pain Shoulder Special Tests Drop Arm Rotator Cuff Test Results - PT-OP-M Strength Start: 02/15/23 13:17 Freq: Status: Active Protocol: Document 02/15/23 13:17 SAK (Rec: 02/15/23 14:35 [facility] [id number]) Cervical Spine Strength Cervical Spine Manual Muscle Testing Testing Position Sitting Flexion (C1-2) 4 Good Extension 4 Good Rotation Left 4 Good Rotation Right 4 Good Lateral Flexion Left (C3) 4 Good Lateral Flexion Right (C3) 4 Good Comments painful PT-OP-Q Treatments Start: 02/15/23 13:17 Freq: Status: Active Protocol: Document 03/28/23 10:31 [facility] (Rec: 03/28/23 10:55 [facility] [id number]) Cardio Equipment Upper Body Ergometer (UBE) RPM 120 Other 1 min fwd, 20 sec back; discontinued due to pain Therapeutic Exercises Supine Exercises chest press Comments next session serratus punch Reps/Minutes 10x pec stretch Reps/Minutes 3x30 Comments manual deep breathing Supine Exercise Name abdominal, lateral ribcage, upper ribcage, posterior ribcage Reps/Minutes 5 min Comments verbal and manual cues with ed BUE on belly for self feedback contract relax eye gaze Reps/Minutes 3reps x 2 Comments followed by AROM, SNAG Sitting Exercises shoulder ER Resistance L1 TB Reps/Minutes 10x Trunk rotation Equipment Used arms across chest Reps/Minutes 2x each side Comments cues for gentle, take deep breath shoulder shrugs and rolls Side bilateral Reps/Minutes 5x Standing Exercises shoulder ext Resistance L1 TB Reps/Minutes 10x row Resistance L1 TB Reps/Minutes 10x Manual Therapy Treatment Soft Tissue Mobilization c/s, t/s Body Location R>L ES, UT, LS, SCM Mobilization Type Myofascial Release,Strumming, Sustained Pressure Intensity/Depth Moderate Comments sitting and supine Joint Mobilizations first rib Joint L Direction gentle caudal with exhale and AAROM LUE FF Body Position Hooklying Comments I-II gentle downward improved postion Self-Care/Home Management Treatment Education Patient Education Body Mechanics,Home Exercise Program,Posture Other Education body mechanics for vacuuming frequent position changes during baking, paperwork, optical mechanic apprentice and activities PT-OP-R Modalities Start: 02/15/23 13:17 Freq: Status: Active Protocol: Document 03/28/23 10:31 [facility] (Rec: 03/28/23 10:55 [facility] [id number]) Hot Pack/Cold Pack Treatment Hot Pack Location c/s Patient Position Hooklying Treatment Duration (minutes) 15 Patient Tolerance Good PT-OP-T Assessment and Plan Start: 02/15/23 13:17 Freq: Status: Active Protocol: Document 03/28/23 10:31 [facility] (Rec: 03/28/23 10:55 [facility] [id number]) Physical Therapy Assessment Goals Three Impairment activity tolerance Impairment Neck disability index score 57 % Short Term Goal (STG) Decrease Neck disability index score to no greater than 45% as measure of improved activity tolerance 03/28/23: goal progress STG Duration 03/18/23 Nursing Home Goal (LTG) Decrease neck disability index score to no greater than 30% as measure of improved activity tolerance and quality of life LTG Duration 04/17/23 Two Impairment dec neck ROM Impairment difficult and painful to turn head for safe driving Short Term Goal (STG) Patient to be instructed in ROM exercises for cervical spine 03/28/23: goal met, ongoing progression STG Duration goal met Head Paper Tester Goal (LTG) Patient to be independent and compliant with HEP and patient to report at least 75% improvement in ability to turn her head for driving, neck ROM WFL. LTG Duration 04/17/23 One Impairment function-limiting neck pain Impairment as high as 8/10 Short Term Goal (STG) decrease pain to no greater than 6/10 with all usual activities 03/28/23: goal progress STG Duration 03/18/23 Head Paper Tester Goal (LTG) Decrease pain to no greater than 3/10 to allow patient to return to prior level of function LTG Duration 04/17/23 Assessment Summary Assessment Patient experiences dec in pain after PT, pain easily exacerbated with household tasks and last week irritated by dental procedure; hasn't subsided yet and she may contact dentist (pain on right side close to her c/s area of pain; states feels connected. ) Weak scapular stabilizers, SA. Physical Therapy Plan Frequency and Duration Frequency of Treatment 2x/Week Duration of treatment (weeks) 8 Plan of Care Start Date 02/15/23 Plan of Care End Date 04/17/23 Therapeutic Interventions Therapeutic Interventions Home Exercise Program,Manual Therapy,Patient/Caregiver Education,Self-Care/Home Management,Soft Tissue Mobilization,Taping, Therapeutic Activities, Therapeutic Exercises Modalities Electric Stimulation,Hot Packs ,Infrared Therapy,Traction- Mechanical,Ultrasound Next Visit Focus/Plan Next Note Type Treatment Note Next Visit Plan evaluate response to today's treatment with inc exercise. Progress as indicated. Consider kinesiotape.
--- NOTE | 2023-04-11 10:21 | PT.OTN ---
Current Diagnoses Cervicalgia (04/11/23) Abnormal posture (04/11/23) Weakness (04/11/23) Physical Therapy Treatment Note PT-OP-A Visit Information Start: 02/15/23 13:17 Freq: Status: Active Protocol: Document 04/11/23 09:06 SAK (Rec: 04/11/23 10:20 [facility] [id number]) Out-Patient Physical Therapy Visit Information Visit Information Visit Type Treatment Note Visit Start Time 09:06 Visit Stop Time 09:56 Total Visit Minutes 50 Visit Number 9 Number of DRAIN CLEANER PLUMBER Visits 0 Evaluation Information Evaluation Date 02/20/23 PT-OP-B Current Condition Start: 02/15/23 13:17 Freq: Status: Active Protocol: Document 04/11/23 09:06 SAK (Rec: 04/11/23 10:20 [facility] [id number]) Current Condition History of Current Condition Onset Date 10+ years Current Complaints worsening pain, unbearable 2-2 1/2 yrs ago History of Current Condition gradual worsening of neck pain , now radiating into right UE. 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 Has done accupuncture, PT with [facility]: ther ex, e-stim , trial traction not tolerated , chiropractic not helpful. Can't tolerate any medications except Tylenol; very sensitive to drugs. Saw Dr. Jo yesterday; has nodule right side of neck wants to biopsy but location makes it difficulty, will look at again in 6 months. Pain inc with looking down, turning neck to drive, reading, gardening, driving. Denies N/T. Has worn cervical collar which is somewhat helpful but irritates neck nodule. Sometimes links hands behind head and pushes in to get some relief. Uses heating pad for temporary relief. Can't sleep in preferred position (sidelying) Prior Treatments and Tests MRI 2020: multilevel degenerative disc disease and arthropathy mild to mod left sided central stenosis C4-5 and C5-6 x-ray 2020: spinal stenosis, DDD mid to lower cervical spine most prominent at C56 level. Min anterolisthesis C4 -5 and C6-7 Injection c/s, no effect. PT-OP-C Subjective Start: 02/15/23 13:17 Freq: Status: Active Protocol: Document 04/11/23 09:06 SAK (Rec: 04/11/23 10:20 [facility] [id number]) OP-PT Subjective Patient Comments Patient Comments Not having a good day, hurts everywhere. Has overdone activity with trip to [place] and 2 hardware stores with family plus trying to put outdoor blind back up. Frustrated the neck pain keeps her from sewing and gardening . Not taking the time during the day to lay down or work on stress management techniques as instructed. Increased pain without PT. PT-OP-H Neuro Start: 02/15/23 13:17 Freq: Status: Active Protocol: Document 02/15/23 13:17 [facility] (Rec: 02/15/23 14:35 [facility] [id number]) Sensation Evaluation Gross Sensation Gross Sensation WNL PT-OP-J Posture/Palpation/Skin Start: 02/15/23 13:17 Freq: Status: Active Protocol: Document 02/15/23 13:17 [facility] (Rec: 02/15/23 14:35 [facility] [id number]) Posture Evaluation Position Sitting Head/C-Spine Posture Rotated Right,Forward Head T-Spine Posture Increased Kyphosis Shoulder Posture (R) Elevated Arm Posture (L) Internally Rotated,(R) Internally Rotated Palpation Assessment Location c/s Palpation Location right facet joings Palpation Findings Soft Tissue Tightness,Muscle Guarding,Tenderness PT-OP-K Range of Motion Start: 02/15/23 13:17 Freq: Status: Active Protocol: Document 02/15/23 13:17 [facility] (Rec: 02/15/23 14:35 [facility] [id number]) Cervical Spine Range of Motion Cervical Spine Active Flexion 65 Extension 41 Rotation Left 37 Rotation Right 57 Lateral Flexion Left 35 Lateral Flexion Right 18 ROM Limitations Bony Restriction,Pain Shoulder Goniometric Range of Motion Shoulder brook Shoulder ROM WFL Yes PT-OP-L Special Tests Start: 02/15/23 13:17 Freq: Status: Active Protocol: Document 02/15/23 13:17 [facility] (Rec: 02/15/23 14:35 [facility] [id number]) Special Tests Cervical Spine Special Tests Alar Ligament Test Results - C2 Side [place] Test Results - C1 Side [place] Test Results - Vertebral Artery Test Results - Foraminal Compression Test Results + inc pain Traction Test Results + inc pain Shoulder Special Tests Drop Arm Rotator Cuff Test Results - PT-OP-M Strength Start: 02/15/23 13:17 Freq: Status: Active Protocol: Document 02/15/23 13:17 SAK (Rec: 02/15/23 14:35 [facility] [id number]) Cervical Spine Strength Cervical Spine Manual Muscle Testing Testing Position Sitting Flexion (C1-2) 4 Good Extension 4 Good Rotation Left 4 Good Rotation Right 4 Good Lateral Flexion Left (C3) 4 Good Lateral Flexion Right (C3) 4 Good Comments painful PT-OP-Q Treatments Start: 02/15/23 13:17 Freq: Status: Active Protocol: Document 04/11/23 09:06 [facility] (Rec: 04/11/23 10:20 [facility] [id number]) Therapeutic Exercises Supine Exercises serratus punch Reps/Minutes 10x chin tuck Supine Exercise Name with overhead flexion Reps/Minutes 10x Comments verbal and tactile guidance deep breathing Supine Exercise Name abdominal, lateral ribcage, upper ribcage, posterior ribcage Reps/Minutes 5 min Comments verbal and manual cues with ed BUE on belly for self feedback contract relax eye gaze Reps/Minutes 3reps x 2 Comments followed by AROM, SNAG Sitting Exercises shoulder shrugs and rolls Side bilateral Reps/Minutes 5x Standing Exercises wall slide Reps/Minutes 7x Comments with shoulder shrug at 90 deg shoulder ext Resistance L1 TB Reps/Minutes 10x Comments cues for scapular engagement row Resistance L1 TB Reps/Minutes 10x Comments cues for scapular engagement Manual Therapy Treatment Soft Tissue Mobilization c/s, t/s Body Location R>L ES, UT, LS, SCM Mobilization Type Myofascial Release,Strumming, Sustained Pressure Intensity/Depth Moderate Comments sitting and supine Self-Care/Home Management Treatment Education Patient Education Body Mechanics,Home Exercise Program,Posture Other Education Taking the time during the day to lay down, decrease gravity effects on neck, do deep breathing and pain-free c/s rotation supine. PT-OP-R Modalities Start: 02/15/23 13:17 Freq: Status: Active Protocol: Document 03/28/23 10:31 [facility] (Rec: 03/28/23 10:55 [facility] [id number]) Hot Pack/Cold Pack Treatment Hot Pack Location c/s Patient Position Hooklying Treatment Duration (minutes) 15 Patient Tolerance Good PT-OP-T Assessment and Plan Start: 02/15/23 13:17 Freq: Status: Active Protocol: Document 04/11/23 09:06 [facility] (Rec: 04/11/23 10:20 [facility] [id number]) Physical Therapy Assessment Goals Three Impairment activity tolerance Impairment Neck disability index score 57 % Short Term Goal (STG) Decrease Neck disability index score to no greater than 45% as measure of improved activity tolerance 03/28/23: goal progress STG Duration 03/18/23 Shelter Goal (LTG) Decrease neck disability index score to no greater than 30% as measure of improved activity tolerance and quality of life LTG Duration 04/17/23 Two Impairment dec neck ROM Impairment difficult and painful to turn head for safe driving Short Term Goal (STG) Patient to be instructed in ROM exercises for cervical spine 03/28/23: goal met, ongoing progression STG Duration goal met Shelter Goal (LTG) Patient to be independent and compliant with HEP and patient to report at least 75% improvement in ability to turn her head for driving, neck ROM WFL. LTG Duration 04/17/23 One Impairment function-limiting neck pain Impairment as high as 8/10 Short Term Goal (STG) decrease pain to no greater than 6/10 with all usual activities 03/28/23: goal progress STG Duration 03/18/23 Hat Steamer Goal (LTG) Decrease pain to no greater than 3/10 to allow patient to return to prior level of function LTG Duration 04/17/23 Assessment Summary Assessment Patient high stress level and overdoing physical activity contributing to her pain and neck dysfunction. Patient verbalizing high stress level with low compliance to stress reduction techniques. Encouraged patient to consider counseling, inc compliance to stress reduction techniques. Good tolerance for chin tuck with neck lengthening overhead reach supine and wall slide standing. Physical Therapy Plan Frequency and Duration Frequency of Treatment 2x/Week Duration of treatment (weeks) 8 Plan of Care Start Date 02/15/23 Plan of Care End Date 04/17/23 Therapeutic Interventions Therapeutic Interventions Home Exercise Program,Manual Therapy,Patient/Caregiver Education,Self-Care/Home Management,Soft Tissue Mobilization,Taping, Therapeutic Activities, Therapeutic Exercises Modalities Electric Stimulation,Hot Packs ,Infrared Therapy,Traction- Mechanical,Ultrasound Next Visit Focus/Plan Next Note Type Re-Evaluation Next Visit Plan Gentle exercise progression from Fixing You neck Pain and US. Continue patient education, manual treatment.
--- NOTE | 2023-04-21 09:25 | PT-OP ANOTE ---
MANAGER RECRUITING called and cancelled today's treatment, POC on 04/17 and primary therapist not available. Pt to see PT Luly next tx and update POC. MANAGER RECRUITING notified schedulers reasoning of cancel and discussed identifying such so no fees to be charged for late cancel.
--- NOTE | 2023-05-02 16:22 | PT.OTN ---
Current Diagnoses Cervicalgia (05/02/23) Abnormal posture (05/02/23) Weakness (05/02/23) Physical Therapy Treatment Note PT-OP-A Visit Information Start: 02/15/23 13:17 Freq: Status: Active Protocol: Document 05/02/23 08:14 SAK (Rec: 05/02/23 09:02 [facility] [id number]) Out-Patient Physical Therapy Visit Information Visit Information Visit Type Treatment Note Visit Start Time 08:14 Visit Stop Time 09:15 Total Visit Minutes 61 Visit Number 10 Number of SENIOR VICE PRESIDENT & GENERAL COUNSEL Visits 0 Evaluation Information Evaluation Date 02/20/23 PT-OP-B Current Condition Start: 02/15/23 13:17 Freq: Status: Active Protocol: Document 05/02/23 08:14 SAK (Rec: 05/02/23 09:02 [facility] [id number]) Current Condition History of Current Condition Onset Date 10+ years Current Complaints worsening pain, unbearable 2-2 1/2 yrs ago History of Current Condition gradual worsening of neck pain , now radiating into right UE. 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 Has done accupuncture, PT with [employer]: ther ex, e-stim , trial traction not tolerated , chiropractic not helpful. Can't tolerate any medications except Tylenol; very sensitive to drugs. Saw Dr. Jo yesterday; has nodule right side of neck wants to biopsy but location makes it difficulty, will look at again in 6 months. Pain inc with looking down, turning neck to drive, reading, gardening, driving. Denies N/T. Has worn cervical collar which is somewhat helpful but irritates neck nodule. Sometimes links hands behind head and pushes in to get some relief. Uses heating pad for temporary relief. Can't sleep in preferred position (sidelying) Prior Treatments and Tests MRI 2020: multilevel degenerative disc disease and arthropathy mild to mod left sided central stenosis C4-5 and C5-6 x-ray 2020: spinal stenosis, DDD mid to lower cervical spine most prominent at C56 level. Min anterolisthesis C4 -5 and C6-7 Injection c/s, no effect. PT-OP-C Subjective Start: 02/15/23 13:17 Freq: Status: Active Protocol: Document 05/02/23 08:14 SAK (Rec: 05/02/23 09:02 SAK [id number]) OP-PT Subjective Patient Comments Patient Comments More aware of posture, taking breaks more frequently, putting pillow on lap for when she is reading. Has been very busy, doing exercises 1x/ day, sometimes 2x. Feels PT helpful. PT-OP-H Neuro Start: 02/15/23 13:17 Freq: Status: Active Protocol: Document 02/15/23 13:17 SAK (Rec: 02/15/23 14:35 [facility] [id number]) Sensation Evaluation Gross Sensation Gross Sensation WNL PT-OP-J Posture/Palpation/Skin Start: 02/15/23 13:17 Freq: Status: Active Protocol: Document 02/15/23 13:17 SAK (Rec: 02/15/23 14:35 [facility] [id number]) Posture Evaluation Position Sitting Head/C-Spine Posture Rotated Right,Forward Head T-Spine Posture Increased Kyphosis Shoulder Posture (R) Elevated Arm Posture (L) Internally Rotated,(R) Internally Rotated Palpation Assessment Location c/s Palpation Location right facet joings Palpation Findings Soft Tissue Tightness,Muscle Guarding,Tenderness PT-OP-K Range of Motion Start: 02/15/23 13:17 Freq: Status: Active Protocol: Document 02/15/23 13:17 [facility] (Rec: 02/15/23 14:35 [facility] [id number]) Cervical Spine Range of Motion Cervical Spine Active Flexion 65 Extension 41 Rotation Left 37 Rotation Right 57 Lateral Flexion Left 35 Lateral Flexion Right 18 ROM Limitations Bony Restriction,Pain Shoulder Goniometric Range of Motion Shoulder brook Shoulder ROM WFL Yes PT-OP-L Special Tests Start: 02/15/23 13:17 Freq: Status: Active Protocol: Document 02/15/23 13:17 [facility] (Rec: 02/15/23 14:35 [facility] [id number]) Special Tests Cervical Spine Special Tests Alar Ligament Test Results - C2 Side [place] Test Results - C1 Side [place] Test Results - Vertebral Artery Test Results - Foraminal Compression Test Results + inc pain Traction Test Results + inc pain Shoulder Special Tests Drop Arm Rotator Cuff Test Results - PT-OP-M Strength Start: 02/15/23 13:17 Freq: Status: Active Protocol: Document 02/15/23 13:17 SAK (Rec: 02/15/23 14:35 [facility] [id number]) Cervical Spine Strength Cervical Spine Manual Muscle Testing Testing Position Sitting Flexion (C1-2) 4 Good Extension 4 Good Rotation Left 4 Good Rotation Right 4 Good Lateral Flexion Left (C3) 4 Good Lateral Flexion Right (C3) 4 Good Comments painful PT-OP-Q Treatments Start: 02/15/23 13:17 Freq: Status: Active Protocol: Document 05/02/23 08:14 [facility] (Rec: 05/02/23 09:02 [facility] [id number]) Therapeutic Exercises Supine Exercises chest press Equipment Used bar Reps/Minutes 10x Comments cues for neck lengthening serratus punch Reps/Minutes 10x pec stretch Reps/Minutes 3x30 Comments manual chin tuck Supine Exercise Name with overhead shoulder flexion Reps/Minutes 3x30 Comments cues for lengthening base of neck deep breathing Supine Exercise Name abdominal, lateral ribcage, upper ribcage, posterior ribcage Reps/Minutes 5 min Comments verbal and manual cues with ed BUE on belly for self feedback contract relax eye gaze Reps/Minutes 3reps x 2 Comments followed by AROM, SNAG c/s rotation Side bilateral Reps/Minutes 3x Comments painfree ROM Standing Exercises wall slide Reps/Minutes 7x Comments with shoulder shrug at 90 deg Manual Therapy Treatment Soft Tissue Mobilization c/s, t/s Body Location R>L ES, UT, LS, SCM Mobilization Type Myofascial Release,Strumming, Sustained Pressure Intensity/Depth Moderate Comments sitting and supine Self-Care/Home Management Treatment Education Patient Education Body Mechanics,Home Exercise Program,Posture PT-OP-R Modalities Start: 02/15/23 13:17 Freq: Status: Active Protocol: Document 05/02/23 08:14 [facility] (Rec: 05/02/23 16:21 [facility] [id number]) Hot Pack/Cold Pack Treatment Hot Pack Location c/s Patient Position Hooklying Treatment Duration (minutes) 15 Patient Tolerance Good PT-OP-T Assessment and Plan Start: 02/15/23 13:17 Freq: Status: Active Protocol: Document 05/02/23 08:14 [facility] (Rec: 05/02/23 09:02 [facility] [id number]) Physical Therapy Assessment Goals Three Impairment activity tolerance Impairment Neck disability index score 57 % Short Term Goal (STG) Decrease Neck disability index score to no greater than 45% as measure of improved activity tolerance 03/28/23: goal progress 05/02/23: dec to 42%, goal met STG Duration goal met Venereal Disease Investigator Goal (LTG) Decrease neck disability index score to no greater than 30% as measure of improved activity tolerance and quality of life LTG Duration 06/18/23 Two Impairment dec neck ROM Impairment difficult and painful to turn head for safe driving Short Term Goal (STG) Patient to be instructed in ROM exercises for cervical spine 03/28/23: goal met, ongoing progression STG Duration goal met Prison Goal (LTG) Patient to be independent and compliant with HEP and patient to report at least 75% improvement in ability to turn her head for driving, neck ROM WFL. 05/02/23: left cervical rotation WNL, right cervical rotation 25%, limited by pain LTG Duration 06/18/23 One Impairment function-limiting neck pain Impairment as high as 8/10 Short Term Goal (STG) decrease pain to no greater than 6/10 with all usual activities 03/28/23: goal progress 05/02/23: goal met STG Duration goal met Prison Goal (LTG) Decrease pain to no greater than 3/10 to allow patient to return to prior level of function LTG Duration 06/18/23 Progress Towards Goals Progress Towards Goals Progressing Toward Goals Assessment Summary Assessment Patient reporting decreased intensity and frequency of pain. She is compliant to HEP and postural correction and positioning recommendations. Most limiting is still right cervical rotation, though left now WNL. Feel further skilled PT is indicated to help patient continue to decrease her pain and improve her activity tolerance and funciton. Physical Therapy Plan Frequency and Duration Frequency of Treatment 1x/Week Duration of treatment (weeks) 8 Plan of Care Start Date 04/17/23 Plan of Care End Date 06/18/23 Therapeutic Interventions Therapeutic Interventions Home Exercise Program,Manual Therapy,Patient/Caregiver Education,Self-Care/Home Management,Soft Tissue Mobilization,Taping, Therapeutic Activities, Therapeutic Exercises Modalities Electric Stimulation,Hot Packs ,Infrared Therapy,Traction- Mechanical,Ultrasound Next Visit Focus/Plan Next Note Type Treatment Note Next Visit Plan Continue PT with ther ex, patient education, manual treatments, and modalities PRN .
--- NOTE | 2023-05-05 10:31 | PT.OTN ---
Current Diagnoses Cervicalgia (05/05/23) Abnormal posture (05/05/23) Weakness (05/05/23) Physical Therapy Treatment Note PT-OP-A Visit Information Start: 02/15/23 13:17 Freq: Status: Active Protocol: Document 05/05/23 09:53 SP (Rec: 05/05/23 10:44 SP [id number]) Out-Patient Physical Therapy Visit Information Visit Information Visit Type Treatment Note Visit Start Time 09:53 Visit Stop Time 10:31 Total Visit Minutes 38 Visit Number 11 Number of WELFARE MANAGER Visits 1 Evaluation Information Evaluation Date 02/20/23 PT-OP-B Current Condition Start: 02/15/23 13:17 Freq: Status: Active Protocol: Document 05/02/23 08:14 SAK (Rec: 05/02/23 09:02 SAK [id number]) Current Condition History of Current Condition Onset Date 10+ years Current Complaints worsening pain, unbearable 2-2 1/2 yrs ago History of Current Condition gradual worsening of neck pain , now radiating into right UE. 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 Has done accupuncture, PT with [employer]: ther ex, e-stim , trial traction not tolerated , chiropractic not helpful. Can't tolerate any medications except Tylenol; very sensitive to drugs. Saw Dr. Jo yesterday; has nodule right side of neck wants to biopsy but location makes it difficulty, will look at again in 6 months. Pain inc with looking down, turning neck to drive, reading, gardening, driving. Denies N/T. Has worn cervical collar which is somewhat helpful but irritates neck nodule. Sometimes links hands behind head and pushes in to get some relief. Uses heating pad for temporary relief. Can't sleep in preferred position (sidelying) Prior Treatments and Tests MRI 2020: multilevel degenerative disc disease and arthropathy mild to mod left sided central stenosis C4-5 and C5-6 x-ray 2020: spinal stenosis, DDD mid to lower cervical spine most prominent at C56 level. Min anterolisthesis C4 -5 and C6-7 Injection c/s, no effect. PT-OP-C Subjective Start: 02/15/23 13:17 Freq: Status: Active Protocol: Document 05/05/23 09:53 SP (Rec: 05/05/23 10:44 SP [id number]) OP-PT Subjective Patient Comments Patient Comments Pt reports had appt with Dr Jo for L hip, waiting on referrral to orthopedic. Pt reports laying on MHP last tx during ther ex made her clothing wet and cold when went outside. Liked the heat but maybe use sitting and not as long for benefits but not affecting clothing dampening. PT-OP-H Neuro Start: 02/15/23 13:17 Freq: Status: Active Protocol: Document 02/15/23 13:17 SAK (Rec: 02/15/23 14:35 SAK [id number]) Sensation Evaluation Gross Sensation Gross Sensation WNL PT-OP-J Posture/Palpation/Skin Start: 02/15/23 13:17 Freq: Status: Active Protocol: Document 02/15/23 13:17 SAK (Rec: 02/15/23 14:35 [facility] [id number]) Posture Evaluation Position Sitting Head/C-Spine Posture Rotated Right,Forward Head T-Spine Posture Increased Kyphosis Shoulder Posture (R) Elevated Arm Posture (L) Internally Rotated,(R) Internally Rotated Palpation Assessment Location c/s Palpation Location right facet joings Palpation Findings Soft Tissue Tightness,Muscle Guarding,Tenderness PT-OP-K Range of Motion Start: 02/15/23 13:17 Freq: Status: Active Protocol: Document 02/15/23 13:17 SAK (Rec: 02/15/23 14:35 [facility] [id number]) Cervical Spine Range of Motion Cervical Spine Active Flexion 65 Extension 41 Rotation Left 37 Rotation Right 57 Lateral Flexion Left 35 Lateral Flexion Right 18 ROM Limitations Bony Restriction,Pain Shoulder Goniometric Range of Motion Shoulder brook Shoulder ROM WFL Yes PT-OP-L Special Tests Start: 02/15/23 13:17 Freq: Status: Active Protocol: Document 02/15/23 13:17 SAK (Rec: 02/15/23 14:35 [facility] [id number]) Special Tests Cervical Spine Special Tests Alar Ligament Test Results - C2 Side [place] Test Results - C1 Side [place] Test Results - Vertebral Artery Test Results - Foraminal Compression Test Results + inc pain Traction Test Results + inc pain Shoulder Special Tests Drop Arm Rotator Cuff Test Results - PT-OP-M Strength Start: 02/15/23 13:17 Freq: Status: Active Protocol: Document 02/15/23 13:17 SAK (Rec: 02/15/23 14:35 SAK [id number]) Cervical Spine Strength Cervical Spine Manual Muscle Testing Testing Position Sitting Flexion (C1-2) 4 Good Extension 4 Good Rotation Left 4 Good Rotation Right 4 Good Lateral Flexion Left (C3) 4 Good Lateral Flexion Right (C3) 4 Good Comments painful PT-OP-Q Treatments Start: 02/15/23 13:17 Freq: Status: Active Protocol: Document 05/05/23 09:53 SP (Rec: 05/05/23 10:44 SP [id number]) Therapeutic Exercises Supine Exercises chest press Resistance AROM, 2# wt on dowel Reps/Minutes 10x each Comments cues for neck lengthening serratus punch Supine Exercise Name alternating, R weaker than L Side bilateral Reps/Minutes 2x10 Comments cued elbow straight, 1 scapular punch pec stretch Resistance Rtighter than L Reps/Minutes 3x30 various ranges Comments manual Sitting Exercises chin tuck Reps/Minutes 5x Comments cues for gentle Standing Exercises wall posture Standing Exercise Name reviewed HEP Reps/Minutes 5 SH x10 reps Comments cued spinal roll up, TA, chin nod /c CS ext toward wal PT-OP-R Modalities Start: 02/15/23 13:17 Freq: Status: Active Protocol: Document 05/02/23 08:14 SAK (Rec: 05/02/23 16:21 SAK [id number]) Hot Pack/Cold Pack Treatment Hot Pack Location c/s Patient Position Hooklying Treatment Duration (minutes) 15 Patient Tolerance Good PT-OP-T Assessment and Plan Start: 02/15/23 13:17 Freq: Status: Active Protocol: Document 05/05/23 09:53 SP (Rec: 05/05/23 10:44 SP [id number]) Physical Therapy Assessment Goals Three Impairment activity tolerance Impairment Neck disability index score 57 % Short Term Goal (STG) Decrease Neck disability index score to no greater than 45% as measure of improved activity tolerance 03/28/23: goal progress 05/02/23: dec to 42%, goal met STG Duration goal met Corporate Buyer Goal (LTG) Decrease neck disability index score to no greater than 30% as measure of improved activity tolerance and quality of life LTG Duration 06/18/23 Two Impairment dec neck ROM Impairment difficult and painful to turn head for safe driving Short Term Goal (STG) Patient to be instructed in ROM exercises for cervical spine 03/28/23: goal met, ongoing progression STG Duration goal met Corporate Buyer Goal (LTG) Patient to be independent and compliant with HEP and patient to report at least 75% improvement in ability to turn her head for driving, neck ROM WFL. 05/02/23: left cervical rotation WNL, right cervical rotation 25%, limited by pain LTG Duration 06/18/23 One Impairment function-limiting neck pain Impairment as high as 8/10 Short Term Goal (STG) decrease pain to no greater than 6/10 with all usual activities 03/28/23: goal progress 05/02/23: goal met STG Duration goal met Snf Goal (LTG) Decrease pain to no greater than 3/10 to allow patient to return to prior level of function LTG Duration 06/18/23 Assessment Summary Assessment Pt tolerated increased resistance to chest press using dowel, cues elbow straight to allow for scapular ROM and postural support. She had good self corrections with cuing needed carryover during wall posture and awareness of how carryover community gait with arm swing ROM. Physical Therapy Plan Frequency and Duration Frequency of Treatment 1x/Week Duration of treatment (weeks) 8 Plan of Care Start Date 04/17/23 Plan of Care End Date 06/18/23 Therapeutic Interventions Therapeutic Interventions Home Exercise Program,Manual Therapy,Patient/Caregiver Education,Self-Care/Home Management,Soft Tissue Mobilization,Taping, Therapeutic Activities, Therapeutic Exercises Modalities Electric Stimulation,Hot Packs ,Infrared Therapy,Traction- Mechanical,Ultrasound Next Visit Focus/Plan Next Note Type Treatment Note Next Visit Plan Continue PT with ther ex, patient education, manual treatments, and modalities PRN .
--- NOTE | 2023-05-12 07:31 | PT-OP ANOTE ---
Pt called 24 hrs in advance, still sore from a biopsy and unable to attend appt.
--- NOTE | 2023-05-29 08:52 | PT.OPDS ---
Current Diagnoses Cervicalgia (05/05/23) Abnormal posture (05/05/23) Weakness (05/05/23) Visit Care Team Role Provider Type Екатерина Jo MD Attending Provider Physician Family Provider Primary Care Provider Referring Provider Specialty: Family Practice Address: [address] [place] [address], [place], [address] Email: [email or web address] Visit Number Visit Number 11 Discharge Summary PT-OP-B Current Condition Start: 02/15/23 13:17 Freq: Status: Active Protocol: Document 05/02/23 08:14 SAK (Rec: 05/02/23 09:02 SAK [id number]) Current Condition History of Current Condition Onset Date 10+ years Current Complaints worsening pain, unbearable 2-2 1/2 yrs ago History of Current Condition gradual worsening of neck pain , now radiating into right UE. 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 Has done accupuncture, PT with [facility]: ther ex, e-stim , trial traction not tolerated , chiropractic not helpful. Can't tolerate any medications except Tylenol; very sensitive to drugs. Saw Dr. Jo yesterday; has nodule right side of neck wants to biopsy but location makes it difficulty, will look at again in 6 months. Pain inc with looking down, turning neck to drive, reading, gardening, driving. Denies N/T. Has worn cervical collar which is somewhat helpful but irritates neck nodule. Sometimes links hands behind head and pushes in to get some relief. Uses heating pad for temporary relief. Can't sleep in preferred position (sidelying) Prior Treatments and Tests MRI 2020: multilevel degenerative disc disease and arthropathy mild to mod left sided central stenosis C4-5 and C5-6 x-ray 2020: spinal stenosis, DDD mid to lower cervical spine most prominent at C56 level. Min anterolisthesis C4 -5 and C6-7 Injection c/s, no effect. PT-OP-C Subjective Start: 02/15/23 13:17 Freq: Status: Active Protocol: Document 05/05/23 09:53 SP (Rec: 05/05/23 10:44 SP [id number]) OP-PT Subjective Patient Comments Patient Comments Pt reports had appt with Dr Jo for L hip, waiting on referrral to orthopedic. Pt reports laying on MHP last tx during ther ex made her clothing wet and cold when went outside. Liked the heat but maybe use sitting and not as long for benefits but not affecting clothing dampening. PT-OP-H Neuro Start: 02/15/23 13:17 Freq: Status: Active Protocol: Document 02/15/23 13:17 SAK (Rec: 02/15/23 14:35 [facility] [id number]) Sensation Evaluation Gross Sensation Gross Sensation WNL PT-OP-J Posture/Palpation/Skin Start: 02/15/23 13:17 Freq: Status: Active Protocol: Document 02/15/23 13:17 SAK (Rec: 02/15/23 14:35 SAK [id number]) Posture Evaluation Position Sitting Head/C-Spine Posture Rotated Right,Forward Head T-Spine Posture Increased Kyphosis Shoulder Posture (R) Elevated Arm Posture (L) Internally Rotated,(R) Internally Rotated Palpation Assessment Location c/s Palpation Location right facet joings Palpation Findings Soft Tissue Tightness,Muscle Guarding,Tenderness PT-OP-K Range of Motion Start: 02/15/23 13:17 Freq: Status: Active Protocol: Document 02/15/23 13:17 SAK (Rec: 02/15/23 14:35 [facility] [id number]) Cervical Spine Range of Motion Cervical Spine Active Flexion 65 Extension 41 Rotation Left 37 Rotation Right 57 Lateral Flexion Left 35 Lateral Flexion Right 18 ROM Limitations Bony Restriction,Pain Shoulder Goniometric Range of Motion Shoulder brook Shoulder ROM WFL Yes PT-OP-L Special Tests Start: 02/15/23 13:17 Freq: Status: Active Protocol: Document 02/15/23 13:17 SAK (Rec: 02/15/23 14:35 [facility] [id number]) Special Tests Cervical Spine Special Tests Alar Ligament Test Results - C2 Side [place] Test Results - C1 Side [place] Test Results - Vertebral Artery Test Results - Foraminal Compression Test Results + inc pain Traction Test Results + inc pain Shoulder Special Tests Drop Arm Rotator Cuff Test Results - PT-OP-M Strength Start: 02/15/23 13:17 Freq: Status: Active Protocol: Document 02/15/23 13:17 SAK (Rec: 02/15/23 14:35 [facility] [id number]) Cervical Spine Strength Cervical Spine Manual Muscle Testing Testing Position Sitting Flexion (C1-2) 4 Good Extension 4 Good Rotation Left 4 Good Rotation Right 4 Good Lateral Flexion Left (C3) 4 Good Lateral Flexion Right (C3) 4 Good Comments painful PT-OP-T Assessment and Plan Start: 02/15/23 13:17 Freq: Status: Active Protocol: Document 05/29/23 08:51 [facility] (Rec: 05/29/23 08:52 [facility] [id number]) Physical Therapy Plan Discharge Physical Therapy Discharge Reasons Patient Request
== END 2023-05-29 14:51 | disposition home or self-care (01) ==
LOC: PHYS 09:45
PROVIDERS: Family Provider Family Medicine; PCP Family Medicine; Referring Provider Family Medicine; Visit Provider Family Medicine
DX: M54.2 Cervicalgia (principal); R29.3 Abnormal posture; R53.1 Weakness
CPT/HCPCS: 97110; 97140; 97162; 97535

== ENCOUNTER → 2023-05-09 | Outpatient (CLI) | payer MEDICARE, OTHER, SELFPAY ==
--- NOTE | 2023-05-09 | PATH_ITS ---
[facility] Accession Number: [id number] No. of containers..01 Tissue . 01 Material submitted: . breast - LEFT BREAST 1:00 3CM FN MASS . 01 Diagnosis: Left Breast, 1 o'clock, 3 cm FN Mass, Ultrasound Biopsies: Minute focus of atypical ductal hyperplasia, see microscopic description. Associated fibroadenomatoid changes with stromal calcifications. Negative for invasive carcinoma. MRV 05/18/2023 1749 Local . 01 Electronically signed: . Jaqueline Lackey MD, Pathologist NPI- [id number] . 01 Gross description: . The specimen is received in formalin labeled with the patient's name, , and US BX breast, consists of multiple yellow to red-brown soft tissue fragments aggregating to 2.0 x 1.5 x 0.3 cm. Inked black, filtered, and submitted entirely in cassette A1. . The specimen was removed on 05/09/2023 at 0947; time in formalin not provided; cold ischemic time cannot be calculated; and total fixation time is approximately 33 hours. ([id number]) /MRV 05/10/2023 0932 Local . 01 Microscopic: . Microscopic examination of the breast tissue reveals a small focus of ductal hyperplasia with atypia. To better evaluate that focus, multiple deeper levels and immunostains were performed with the following results: . CK5/6 shows diminished expression on the atypical duct and ER immunostain shows overexpression. . These immunohistochemical results along with the morphology support the diagnosis of focal ductal atypical hyperplasia. . There is no evidence of invasive carcinoma on the submitted biopsies. . Please correlate with imaging studies to ensure that the area of interest has been adequately sampled. . Selected slides have also been reviewed by PRINTED CIRCUIT BOARD PCB DRAFTSMAN pathologist, Dr. Shara Sanchez, who agrees with the interpretation. . * This test was developed and its performance characteristics determined by [facility]. It has not been cleared or approved by the U.S. Food and Drug Administration. The FDA has determined that such clearance or approval is not necessary. This test is used for clinical purposes. It should not be regarded as investigational or for research. . 01 Pathologist provided ICD-10: N63.20, N60.89 . 01 CPT . 005690, M28933, H20238 Specimen Comment: A courtesy copy of this report has been sent to [facility] Pathology Performed at: 01 [facility] [address] [place] [address], [place], [place] [id number] MD Bebo Lee MD Phone: [phone]
--- NOTE | 2023-05-09 | DI.US.S_ITS ---
ULTRASOUND GUIDED BIOPSY LEFT BREAST USING VACUUM DEVICE WITH POST MAMMOGRAPHIC AND ULTRASOUND IMAGIN05/09/2023 CLINICAL: Left breast mass. PATIENT CONSENT: Risks (minor bleeding, infection, vasovagal reaction and repeat procedure), benefits and alternatives were explained to the patient and written informed consent was obtained. Correlation is made to exams dated: 04/28/2023 ultrasound, 03/24/2023 mammogram, 01/24/2022 ultrasound, 01/24/2022 mammogram, and 03/06/2020 ultrasound - [facility]. An ultrasound guided biopsy using real-time ultrasound was performed for the oval mass located in the left breast at 1 o'clock middle depth. This was described on the previous ultrasound report. The skin was prepped in the usual manner. Local anesthetic was administered to the access site. The abnormality was approached from the lateral aspect. A 14 gauge biopsy needle was placed adjacent to the abnormality under ultrasound guidance. Once the needle was documented to be in the correct location, five specimens were obtained using the Mammotome biopsy system. Post procedure mammographic and ultrasound imaging demonstrates the clip at the targeted area. The specimens were sent to the laboratory for pathological analysis. IMPRESSION: ULTRASOUND GUIDED BIOPSY HIGH RISK BENIGN Ultrasound guided biopsy of the mass in the left breast middle depth was successful. 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 Pathology results are concordant with imaging findings. A surgical consultation is recommended. Note: The patient was schedule to have bilateral breast biopsy. After biopsy of the left breast lesion, the patient requested postpone biopsy of her right breast lesion. This exam was interpreted at Station ID: [id number]. Usha gilbert,aty/:05/22/2023 21:06:35
--- NOTE | 2023-05-09 | DI.MG.S_ITS ---
UNILATERAL LEFT DIGITAL DIAGNOSTIC MAMMOGRAM 3D/2D POST-NEEDLE BIOPSY: 05/09/2023 CLINICAL: Post clip placement. Comparison is made to exams dated: 03/24/2023 mammogram, 01/24/2022 mammogram, and 03/06/2020 mammogram - [facility]. The left breast is heterogeneously dense, which may obscure small masses (category c / 51-75% glandular tissue). There is a biopsy marker at the biopsy site in the left breast. IMPRESSION: POST PROCEDURE MAMMOGRAM FOR MARKER PLACEMENT A biopsy marker at the biopsy site. This exam was interpreted at Station ID: [id number]. NOTE: For mammograms, a report in lay terms will be sent to the patient. Approximately 15% of breast malignancies will not be visualized mammographically. In the management of a palpable breast mass, a negative mammogram must not discourage biopsy of a clinically suspicious lesion. Electronically Signed By: Usha Kenney M.D. fx/:05/11/2023 14:18:32 ACR BI-RADS Category Post-procedure mammogram for marker placement
== END ==
LOC: US 07:59
PROVIDERS: Family Provider Family Medicine; PCP Family Medicine; Referring Provider Family Medicine; Visit Provider Family Medicine
DX: N63.10 Unspecified lump in the right breast, unspecified quadrant; N60.92 Unspecified benign mammary dysplasia of left breast
CPT/HCPCS: 19083; 77065

== ENCOUNTER → 2023-05-23 11:52 | Outpatient (CLI) | payer MEDICARE, OTHER, SELFPAY ==
--- NOTE | 2023-05-23 11:54 | DI.RAD.S_ITS ---
PROCEDURE: XR SHOULDER RT MIN 2V INDICATIONS: RIGHT SHOULDER PAIN TECHNIQUE: 3 views of the shoulder were acquired. COMPARISON: None. FINDINGS: Bones: Glenohumeral and acromioclavicular joint space narrowing with associated osteophytosis. Dystrophic calcification anterior to the glenoid, and medial to the humeral shaft. Soft tissues: No suspicious soft tissue calcifications. 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 Dictated by: Santiago Winter M.D. on 05/23/2023 at 13:34 Approved by: Santiago Winter M.D. on 05/23/2023 at 13:35
--- NOTE | 2023-05-23 11:54 | DI.RAD.S_ITS ---
PROCEDURE: XR CERVICAL SPINE 4V OR 5V INDICATIONS: NECK PAIN TECHNIQUE: 5 views of the cervical spine acquired. COMPARISON: [facility], CR, XR CERVICAL SPINE 2V OR 3V, 01/13/2021, 10:53. [facility], CR, XR CERVICAL SPINE 2V OR 3V, 07/02/2018, 9:21. FINDINGS: Bones: No fractures or dislocations to the T1 level. Oblique images demonstrate no bony foraminal stenoses. Grade 1 anterolisthesis of C4 on C5, presumably due to facet arthrosis. Severe disc height loss at C5-6. Moderate disc height loss at remaining levels. Diffuse facet arthrosis. Soft tissues: No prevertebral soft tissue swelling. IMPRESSION: Moderate to severe, multilevel degenerative disc disease and facet arthrosis. Dictated by: Santiago Winter M.D. on 05/23/2023 at 13:33 Approved by: Santiago Winter M.D. on 05/23/2023 at 13:34
== END ==
PROVIDERS: Family Provider Family Medicine; PCP Family Medicine; Referring Provider Physical Medicine & Rehabilitation; Visit Provider Physical Medicine & Rehabilitation
DX: M47.812 Spondylosis without myelopathy or radiculopathy, cervical region (principal); M50.20 Other cervical disc displacement, unspecified cervical region; M50.30 Other cervical disc degeneration, unspecified cervical region; M19.011 Primary osteoarthritis, right shoulder; M25.511 Pain in right shoulder
CPT/HCPCS: 72050; 73030

== ENCOUNTER → 2023-06-07 12:44 | Outpatient (CLI) | payer MEDICARE, OTHER, SELFPAY ==
[2023-06-07 13:05] LABS: INR 2.4 (0.9-1.3); Prothrombin Time 27.3 SECONDS (9.4-12.5)
== END ==
PROVIDERS: Family Provider Family Medicine; PCP Family Medicine; Visit Provider Family Medicine
DX: I26.99 Other pulmonary embolism without acute cor pulmonale (principal); I48.0 Paroxysmal atrial fibrillation; N60.92 Unspecified benign mammary dysplasia of left breast
CPT/HCPCS: 85610; 99214

== ENCOUNTER → 2023-07-04 09:15 | Outpatient (ROUT) | payer MEDICARE, OTHER, SELFPAY ==
[2023-07-04 09:36] LABS: INR 2.2 (0.9-1.3); Prothrombin Time 25.6 SECONDS (9.4-12.5)
== END ==
PROVIDERS: Family Provider Family Medicine; PCP Family Medicine; Visit Provider Family Medicine
DX: I26.99 Other pulmonary embolism without acute cor pulmonale (principal); I48.0 Paroxysmal atrial fibrillation
CPT/HCPCS: 85610

== ENCOUNTER → 2023-07-19 11:21 | Outpatient (CLI) | payer MEDICARE, OTHER, SELFPAY ==
--- NOTE | 2023-07-19 11:23 | DI.MRI.S_ITS ---
PROCEDURE: MR CERVICAL SPINE WO CON INDICATIONS: Spinal stenosis, cervical region TECHNIQUE: Noncontrast sagittal T1 spin echo and T2 fast spin echo, sagittal STIR, foraminal oblique sagittal T2 fast spin echo, and axial gradient echo or T2 fast spin echo through the cervical spine. COMPARISON: [facility], MR, MR CERVICAL SPINE WO CON, 12/24/2020, 8:57. FINDINGS: Image quality: Excellent. Alignment and Curvature: As before, there is trace anterolisthesis of C4 on C5, C6 on C7, and C7 on T1. Bone Marrow: Marrow demonstrates normal overall signal. Spinal Cord: Visualized spinal cord has normal size and signal. No cerebellar tonsillar herniation. Paraspinous Soft Tissues: No paravertebral masses. Prevertebral soft tissues are normal in thickness. C1-C2: Pannus formation at the anterior articulation suggest the possibility of an inflammatory arthritis. No associated canal stenosis. C2-C3: Diffuse disc bulge is increased period facet and ligament hypertrophy. AP diameter of the central canal is 10.5 mm. No foraminal stenosis. C3-C4: Chronic disc height loss. Diffuse posterior disc post osteophyte. Slight interval progression. Moderate canal stenosis. AP diameter of the central canal is 8.5 mm. Bilateral uncovertebral joint hypertrophy and facet hypertrophy. Moderate to severe bilateral foraminal narrowing with bilateral foraminal C4 nerve root impingement. C4-C5: Trace anterolisthesis of C4 on C5. Posterior disc post osteophyte, eccentric to the left. AP diameter of the central canal is 10.5 mm. Prominent bilateral uncovertebral joint hypertrophy. Bilateral facet hypertrophy. Moderate bilateral foraminal narrowing with flattening deformity on the exiting bilateral C5 nerve roots. C5-C6: Chronic disc height loss. Posterior disc post osteophyte. Bilateral uncovertebral joint hypertrophy. Borderline canal stenosis. AP diameter of the central canal is 9.9 mm. Bilateral uncovertebral joint hypertrophy, prominent on the left. Bilateral facet hypertrophy. Mild right foraminal narrowing. Moderate to severe left foraminal narrowing with a degree of left foraminal C6 nerve root impingement. C6-C7: Disc bulge. Bilateral facet hypertrophy. No significant central canal stenosis. [id number] left foraminal narrowing. C7-T1: Bilateral facet hypertrophy. No canal stenosis or foraminal stenosis. IMPRESSION: 1. There is diffuse cervical spondylitic change. Findings include multilevel facet arthropathy and uncovertebral joint hypertrophy. 2. There is moderate canal stenosis at C3-C4. There is borderline canal stenosis at C5-C6. 3 period multilevel foraminal narrowing as described above. Findings include moderate to severe bilateral foraminal narrowing at C3-C4 and moderate bilateral foraminal narrowing at C4-C5, and moderate to severe left foraminal narrowing at C5-C6. Dictated by: Pineda Freeman M.D. on 07/19/2023 at 21:03 Approved by: Pineda Freeman M.D. on 07/19/2023 at 21:16
== END ==
PROVIDERS: Family Provider Family Medicine; PCP Family Medicine; Referring Provider Physical Medicine & Rehabilitation Pain Medicine; Visit Provider Physical Medicine & Rehabilitation Pain Medicine
DX: M48.02 Spinal stenosis, cervical region (principal); M47.812 Spondylosis without myelopathy or radiculopathy, cervical region
CPT/HCPCS: 72141

== ENCOUNTER 2023-07-29 19:05 | Emergency (ER) | payer MEDICARE, OTHER, SELFPAY ==
[2023-07-29] VITALS (11 sets, daily range): BP systolic 139–170; BP diastolic 63–80; PULSE 52–67; RESP 12–29; TEMP 36.9; O2SAT 98–100; BMI 21.6
[2023-07-29 20:58] LABS: Add Manual Diff / Slide Review NO; Basophils Absolute Auto 100 /uL (0-100); Basophils Percent Auto 0.6 % (0-2); Eosinophils Absolute Auto 100 /uL (0-450); Eosinophils Percent Auto 0.6 % (2-4); Hematocrit 40.6 % (36-46); Hemoglobin 13.3 g/dL (12.0-16.0); Lymphocytes Absolute Auto 1800 /uL (1100-4500); Lymphocytes Percent Auto 17.1 % (25-40); Mean Corpuscular HGB Conc 32.7 % (30-36); Mean Corpuscular Hemoglobin 30.6 PG (26-34); Mean Corpuscular Volume 93.5 fL (80-100); Monocytes Absolute Auto 600 /uL (0-900); Neutrophils Absolute Auto 7800 /uL (1500-7000); Neutrophils Percent Auto 75.7 % (50-75); Platelet Count 221 X10^3/uL (150-400); Red Blood Cell Count 4.34 X10^6/uL (4.0-5.2); Red Cell Distribution Width 15.3 % (11.6-14.8); White Blood Cell Count 10.3 X10^3/uL (4.5-11.0)
[2023-07-29 20:59] LABS: INR 1.7 (0.9-1.3); Prothrombin Time 19.7 SECONDS (9.4-12.5)
[2023-07-29 21:01] LABS: PTT Partial Thromboplastin Tim 37 SECONDS (25.1-36.5)
[2023-07-29 21:09] LABS: Alanine Aminotransferase 26 IU/L (<35); Albumin 4.4 g/dL (3.5-5.0); Albumin Globulin Ratio 1.4 (1.0-2.8); Alkaline Phosphatase 64 U/L (38-126); Aspartate Aminotransferase 43 IU/L (14-36); Bilirubin Total 0.9 mg/dL (0.2-1.3); Blood Urea Nitrogen 23 mg/dL (7-17); Calcium 9.7 mg/dL (8.4-10.2); Carbon Dioxide 28 mmol/L (22-32); Chloride 105 mmol/L (98-107); Estimated Glomerular Filt Rate 58 mL/min (>60); Globulin 3.2 g/dL (1.7-4.1); Glucose 123 mg/dL (80-110); HEMOLYSIS 35 (0-50); Lipase 136 U/L (23-300); Magnesium 1.6 mg/dL (1.6-2.3); Potassium 4.3 mmol/L (3.4-5.1); Sodium 137 mmol/L (137-145); Total Protein 7.6 g/dL (6.3-8.2)
--- NOTE | 2023-07-29 21:58 | ED.ARRPALP ---
HPI - Arrhythmia/Palpitations General Chief Complaint: Arrhythmia/Palpitations Stated Complaint: fast HR Time Seen by Provider: 07/29/23 19:56 Source: EMS Mode of arrival: EMS History of Present Illness HPI narrative: 83-year-old woman with a history of single episode of atrial fibrillation a couple of years ago for which she was cardioverted, prior pulmonary embolism, anticoagulated on Coumadin, hypertension who presents today complaining that her heart rate has been bouncing all over the place. This morning she noticed that she was having a minor amount of chest pressure and some palpitations. She took her blood pressure and noticed that the heart rate was ranging anywhere from 50-90. The highest that it got was 120. She took an extra dose of her propranolol as she had been instructed by her tombstone polisher previously. Was continuing to note some palpitations and comes in for further evaluation. She denies any fevers, cough, chills or recent viral syndromes. No nausea vomiting or diarrhea no abdominal pain. No headaches. Related Data Home Medications Medication Instructions Recorded Confirmed cetirizine 10 mg capsule 10 mg PO DAILY ##0 12/19/09 06/07/23 zolpidem 10 mg tablet (Ambien) 10 mg PO BEDTIME ##0 12/19/09 06/07/23 methylcellulose (laxative) 500 mg 1,500 mg PO DAILY 08/10/20 06/07/23 tablet (Citrucel) Probiotic 1 cap PO DAILY 09/01/20 06/07/23 amlodipine 2.5 mg tablet 2.5 mg PO DAILY 09/01/20 06/07/23 zinc 100 mg tablet 100 mg PO DAILY 09/01/20 06/07/23 ipratropium bromide 42 mcg (0.06 2 spray intranasal DAILY PRN 02/12/21 06/07/23 %) nasal spray lisinopril 40 mg tablet 40 mg PO DAILY 02/12/21 06/07/23 multivitamin 1 tab PO DAILY 02/12/21 06/07/23 pantoprazole 40 mg tablet,delayed 40 mg PO DAILY 02/12/21 06/07/23 release (Protonix) polyethylene glycol 3350 17 17 g PO DAILY PRN 02/12/21 06/07/23 gram/dose oral powder (Miralax) warfarin 4 mg tablet 4 mg PO DAILY 02/12/21 06/07/23 propranolol 60 mg capsule,24 60 mg PO DAILY 05/24/23 06/07/23 hr,extended release propranolol 60 mg capsule,24 60 mg PO DAILY 07/29/23 07/29/23 hr,extended release Previous Rx's Medication Instructions Recorded tramadol 50 mg tablet 50 mg PO BID PRN pain #30 tabs 05/24/23 Allergies Allergy/AdvReac Type Severity Reaction Status Date / Time Sulfa (Sulfonamide Allergy Severe ITCHING SOB Verified 06/07/23 11:31 Antibiotics) [SULFA (SULFONAMIDE ANTIBIOTICS)] azithromycin Allergy Verified 06/07/23 11:31 chocolate flavor Allergy tightness Verified 06/07/23 11:31 esomeprazole Allergy Verified 06/07/23 11:31 Opioids - Morphine Analogues Allergy Verified 06/07/23 11:31 spinach Allergy Rash Verified 06/07/23 11:31 fentanyl AdvReac Severe trouble Verified 06/07/23 11:31 waking up, vomitting, spaciness hydrocodone [HYDROCODONE] AdvReac Severe Nausea Verified 06/07/23 11:31 hydromorphone [From Dilaudid] AdvReac Severe confusion, Verified 06/07/23 11:31 vomitting meperidine [MEPERIDINE] AdvReac Severe dizzy Verified 06/07/23 11:31 vomitting amoxicillin [From Augmentin] AdvReac Intermediate Gastrointestinal Verified 06/07/23 11:31 Upset cephalexin [From Keflex] AdvReac Intermediate ITCHING Verified 06/07/23 11:31 rash codeine [CODEINE] AdvReac Intermediate ABDOMINAL Verified 06/07/23 11:31 PAIN morphine [MORPHINE] AdvReac Intermediate Vomiting Verified 06/07/23 11:31 prochlorperazine AdvReac Intermediate Hallucinati Verified 06/07/23 11:31 [PROCHLORPERAZINE] ng ciprofloxacin [From Cipro] AdvReac Gastrointestinal Verified 06/07/23 11:31 Upset clavulanic acid AdvReac Verified 06/07/23 11:31 [From Augmentin] Review of Systems Review of Systems Narrative: Pertinent positive and negative findings as per HPI Patient History Medical History Paroxysmal atrial fibrillation Thyroid nodule Stage 3a chronic kidney disease (CKD) Severe tricuspid regurgitation Lichen sclerosus of vulva Osteopenia Multiple nodules of lung Interstitial lung disease Insomnia Dyspnea HNP (herniated nucleus pulposus), cervical Degenerative joint disease (DJD) of hip Facet arthropathy, cervical Arthritis Pulmonary embolism Hypertension Surgical History History of hip replacement History of cholecystectomy Family History Mother Hypertension Cervical cancer Father Emphysema lung Social History marital status: number of children: 2 household members: family and none education level: master's degree occupational status: previously employed 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 Able to give a complete and coherent history. Well-nourished well-developed HEENT: Moist mucous membranes, normal sclera with reactive pupils, Neck: No JVD, supple Respiratory: Lungs are clear to auscultation, no wheezing no rales no rhonchi. Full and symmetrical air movement Cardiac: Regular rate and rhythm no murmurs no bruits Abdomen: Soft, nontender, good bowel tones, no flank pain Skin: Warm and dry, no rashes Neurologic: Grossly neurologically intact with no obvious asymmetries or abnormalities Extremities: No trauma, well perfused Psych: Cooperative, appropriate insight and affect Course Orders Ordered: ED Orders 07/29/23 18:50 Complete Blood Count AUTO DIFF Stat Comprehensive Metabolic Panel Stat Lipase Stat Magnesium Stat PTT Partial Thromboplastin [place] Stat Prothrombin Time INR Stat Trop I [Troponin I] Stat 07/29/23 22:13 CXR [XR chest 1V] Stat 07/29/23 22:20 NT-proBNP (BNP-Adult 18+) Stat Troponin I Stat Vital Signs Vital signs: Vital Signs - 8 hr 07/29/23 19:14 07/29/23 19:14 07/29/23 19:20 Temperature 98.4 F Pulse Rate 62 60 Respiratory Rate 12 18 Blood Pressure 170/80 H 170/80 H Pulse Oximetry 100 100 Oxygen Delivery Method Room Air Room Air 07/29/23 19:30 07/29/23 19:30 07/29/23 20:25 Temperature Pulse Rate 57 L 67 Respiratory Rate 17 29 H Blood Pressure 150/69 H Pulse Oximetry 100 99 Oxygen Delivery Method Room Air 07/29/23 20:25 07/29/23 20:30 07/29/23 20:30 Temperature Pulse Rate 56 L Respiratory Rate 19 Blood Pressure 145/65 H 139/63 Pulse Oximetry 98 Oxygen Delivery Method 07/29/23 21:00 07/29/23 21:00 07/29/23 21:30 Temperature Pulse Rate 53 L Respiratory Rate Blood Pressure 143/67 H 139/65 Pulse Oximetry 100 Oxygen Delivery Method Room Air 07/29/23 21:30 07/29/23 22:00 07/29/23 22:00 Temperature Pulse Rate 52 L 54 L Respiratory Rate 18 Blood Pressure 145/68 H Pulse Oximetry 100 100 Oxygen Delivery Method Room Air 07/29/23 22:17 07/29/23 22:30 07/29/23 22:30 Temperature Pulse Rate 53 L Respiratory Rate Blood Pressure 162/74 H 149/74 H Pulse Oximetry 98 Oxygen Delivery Method Room Air 07/29/23 23:00 Temperature Pulse Rate 53 L Respiratory Rate Blood Pressure Pulse Oximetry 99 Oxygen Delivery Method Room Air MDM - Arrhythmia/Palpitations Lab Data 07/29/23 18:50 07/29/23 18:50 Labs: Lab Results 07/29/23 07/29/23 Range/Units 18:50 22:20 WBC 10.3 (4.5-11.0) X10^3/uL RBC 4.34 (4.0-5.2) X10^6/uL Hgb 13.3 (12.0-16.0) g/dL Hct 40.6 (36-46) % MCV 93.5 (80-100) fL MCH 30.6 (26-34) PG MCHC 32.7 (30-36) % RDW 15.3 H (11.6-14.8) % Plt Count 221 (150-400) X10^3/uL Neut % (Auto) 75.7 H (50-75) % Lymph % (Auto) 17.1 L (25-40) % Custer % (Auto) 6.0 (3-14) % Eos % (Auto) 0.6 L (2-4) % Baso % (Auto) 0.6 (0-2) % Neut # (Auto) 7800 H (0532-1565) /uL Lymph # (Auto) 1800 (7925-5173) /uL [place] # (Auto) 600 (0-900) /uL Eos # (Auto) 100 (0-450) /uL Baso # (Auto) 100 (0-100) /uL PT 19.7 H (9.4-12.5) SECONDS INR 1.7 H (0.9-1.3) APTT 37 H (25.1-36.5) SECONDS Sodium 137 (137-145) mmol/L Potassium 4.3 (3.4-5.1) mmol/L Chloride 105 (98-107) mmol/L Carbon Dioxide 28 (22-32) mmol/L BUN 23 H (7-17) mg/dL Creatinine 0.96 (0.52-1.04) mg/dL Estimated GFR 58 L (>60) mL/min BUN/Creatinine Ratio 24.0 H (6-22) Glucose 123 H (80-110) mg/dL Calcium 9.7 (8.4-10.2) mg/dL Magnesium 1.6 (1.6-2.3) mg/dL Total Bilirubin 0.9 (0.2-1.3) mg/dL AST 43 H (14-36) IU/L ALT 26 (<35) IU/L Alkaline Phosphatase 64 (38-126) U/L Troponin I < 0.012 < 0.012 (0.01-0.034) ng/mL NT-Pro-B Natriuret Pep 3810 H (<450) pg/mL Total Protein 7.6 (6.3-8.2) g/dL Albumin 4.4 (3.5-5.0) g/dL Globulin 3.2 (1.7-4.1) g/dL Albumin/Globulin Ratio 1.4 (1.0-2.8) Lipase 136 (23-300) U/L MDM Narrative Medical decision making narrative: CC: Erratic heart rate Complicating co-morbidities: Hypertension, anticoagulated on warfarin Data collected from: patient Medical records reviewed: ER notes with cardioversion September 16, 2021 are reviewed Differential considered: Paroxysmal atrial fibrillation, acute coronary syndrome, viral etiology Exam documented above, pertinent findings include: Exam is very benign with no secondary symptoms of congestive heart failure. She is remained in a slow sinus rhythm throughout her emergency room visit Lab Test results independently reviewed as above. Pertinent findings: CBC is unremarkable, no anemia Chemistries are reassuring, no significant electrolyte abnormalities INR is at 1.7 Initial and repeat troponin is unremarkable Lipase is within normal limits ProBNP is slightly elevated at 3810 Independently reviewed EKG: Sinus rhythm at a rate of 60. Normal intervals, normal axis. No acute ischemic changes Imaging studies independently reviewed: Chest x-ray does not show any acute abnormalities Treatments:40mg PO lasix Discussion: 83-year-old woman concerned with palpitations and irregular heartbeat over the course of this morning. She is anticoagulated, she did take an extra propranolol and throughout her emergency room visit she has been in a slow sinus rhythm. Her workup has been unremarkable. No evidence of acute coronary syndrome, significant electrolyte abnormality, infection. Her BNP was slightly elevated she does not carry a diagnosis of congestive heart failure. I have given her a dose of Lasix to see if small amount of diuresis may be helpful. I have suggested that she follow up with her primary care physician. Again explained to her that if she is having short episodes of atrial fibrillation she is on the propranolol, she is anticoagulated and she simply needs outpatient follow-up. Questions were answered and she is safe for discharge home Discharge Plan Departure Patient Disposition: Home Clinical Impression: Heart palpitations, Elevated brain natriuretic peptide (BNP) level Instructions: DI for Arrhythmias Activity Restrictions/Additional Instructions: Thank you for coming in today, I think your ER evaluation was completely appropriate I did not find any evidence of continued atrial fibrillation however you may have had a brief episode this morning to explain the initial symptoms. There was no sign of heart attack or heart attack like syndrome, no significant kidney, liver or electrolyte abnormalities. There was no evidence of infection. I did check for signs of congestive heart failure. Your pro BNP was slightly elevated but you do not have other clinical symptoms of congestive heart failure. I have given you a dose of oral Lasix to take in the morning. Do expect to have quite a bit of urine coming out over the course of tomorrow and then can see if this offers any symptomatic relief for you I would recommend that you follow up with your primary care doctor. If you find that you are getting worse or develop any new symptoms, please feel free to return to the emergency department for further evaluation. Prescriptions: No Action zolpidem [Ambien] 10 mg Tablet 10 mg PO BEDTIME Qty: 0 cetirizine 10 mg Capsule 10 mg PO DAILY Qty: 0 Citrucel 500 mg Tablet 1,500 mg PO DAILY polyethylene glycol 3350 [Miralax] 17 gram/dose powder 17 g PO DAILY PRN amlodipine 2.5 mg Tablet 2.5 mg PO DAILY zinc 100 mg Tablet 100 mg PO DAILY Probiotic 1 cap PO DAILY ipratropium bromide 42 mcg (0.06 %) spray,non-aerosol 2 spray INTRANASAL DAILY PRN propranolol 60 mg capsule,extended release 24 hr 60 mg PO DAILY multivitamin Tablet 1 tab PO DAILY lisinopril 40 mg tablet 40 mg PO DAILY warfarin 4 mg tablet 4 mg PO DAILY pantoprazole [Protonix] 40 mg tablet,delayed release (DR/EC) 40 mg PO DAILY propranolol 60 mg capsule,extended release 24 hr 60 mg PO DAILY tramadol 50 mg tablet 50 mg PO BID PRN (Reason: pain) Qty: 30 1RF Referrals: Екатерина Jo MD [Primary Care Provider] - Stand Alone Forms: Patient Portal/API
--- NOTE | 2023-07-29 22:13 | DI.RAD.S_ITS ---
PROCEDURE: XR CHEST 1V INDICATIONS: Arrythimia/dizziness TECHNIQUE: One view of the chest was acquired. COMPARISON: [facility], CR, XR CHEST 2V, 12/01/2021, 14:10. [facility], CR, XR CHEST 2V, 03/12/2018, 11:17. FINDINGS: Surgical changes and devices: None. Lungs and pleura: Lungs are clear. No pleural effusions or pneumothorax. Mediastinum: Mediastinal contours appear normal. Heart size is normal. Bones and chest wall: No suspicious bony lesions. Overlying soft tissues appear unremarkable. IMPRESSION: No acute cardiopulmonary abnormality is seen. Dictated by: Gasper Castelan M.D. on 07/29/2023 at 22:28 Approved by: Gasper Castelan M.D. on 07/29/2023 at 22:28
[2023-07-29 22:41] LABS: Troponin I < 0.012 ng/mL (0.01-0.034)
[2023-07-29 22:53] LABS: NT-proBNP (BNP-Adult 18+) 3810 pg/mL (<450); Troponin I < 0.012 ng/mL (0.01-0.034)
[2023-07-29] MEDS: FUROSEMIDE 40 MG TABLET PO (23:28)
== END 2023-07-29 23:34 | disposition home or self-care (01) ==
PROVIDERS: Emergency Provider Emergency Medicine; Family Provider Family Medicine; PCP Family Medicine
DX: R00.2 Palpitations (principal); R07.9 Chest pain, unspecified; R79.89 Other specified abnormal findings of blood chemistry
CPT/HCPCS: 36415; 71045; 80053; 83690; 83735; 83880; 84484; 85025; 85610; 85730; 93005; 93010; 99284

== ENCOUNTER → 2023-08-15 09:20 | Outpatient (CLI) | payer MEDICARE, OTHER, SELFPAY ==
--- NOTE | 2023-08-15 09:21 | DI.CT.S_ITS ---
PROCEDURE: CT CHEST WO CON INDICATIONS: MULTIPLE NODULES OF LUNG TECHNIQUE: Noncontrast 5 mm thick sections acquired from the pulmonary apices to the posterior costophrenic angles. 1 mm lung window, 5 mm thick coronal and sagittal and 7 mm axial MIP reformats were then acquired. For radiation dose reduction, the following was used: automated exposure control, adjustment of mA and/or kV according to patient size. COMPARISON: [facility], CT, CT CHEST WO CON, 06/13/2022, 9:27. FINDINGS: Image quality: Diagnostic. Lower Neck: No enlarged lymph nodes. Thyroid: No thyroid nodules which require sonographic follow up, per consensus guidelines. Axillae: No enlarged lymph nodes. Chest Wall: Unremarkable. Bones: Unremarkable. Lungs and Pleura: No pneumothorax or pleural effusions. Reference pulmonary nodules are as follows (all described on series 3): 1. Unchanged peripheral subpleural right upper lobe pulmonary nodule, current image 125 and previous image 131 2. Unchanged subpleural 7 mm left lower lobe pulmonary nodule, current image 234 and previous image 231 3. Unchanged probable rounded atelectasis, right lower lobe, measuring approximately 1.4 x 1.3 cm, current image 230 and previous image 236. No new or increasing pulmonary nodules. Mild emphysematous change. Heart: Heart size is normal. No pericardial effusion. Thoracic Vessels: The aorta and pulmonary arteries demonstrate normal size. Mediastinum and Mary: No enlarged lymph nodes. Esophagus: No wall thickening. No hiatal hernia. Upper Abdomen: Visualized upper abdomen solid organs and bowel loops appear normal. IMPRESSION: Stable findings. Mild emphysematous change. Unchanged pulmonary nodules. Comment: Consider yearly lung screen CT if patient satisfies criteria. Dictated by: Pineda Freeman M.D. on 08/15/2023 at 17:13 Approved by: Pineda Freeman M.D. on 08/15/2023 at 17:20
== END ==
LOC: CT 09:20
PROVIDERS: Family Provider Family Medicine; PCP Family Medicine; Referring Provider Family Medicine; Visit Provider Family Medicine
DX: J84.9 Interstitial pulmonary disease, unspecified (principal); R91.8 Other nonspecific abnormal finding of lung field
CPT/HCPCS: 71250

== ENCOUNTER → 2023-09-05 07:53 | Outpatient (CLI) | payer MEDICARE, OTHER, SELFPAY ==
--- NOTE | 2023-09-05 07:54 | DI.ECHO.S_ITS ---
[place] [facility]+ [facility] : : [address] : : [place] : : [id number] : : Phone: [phone] Echocardiogram Report + + :Name: NORY MAGAÑA Study Date: 09/05/2023 Height: 66 in : :[facility] ReadingLocation: Weight: 132 lb : : Gender: Female BSA: 1.7 m2 : :: 1940 Age: 83 yrs BP: 159/86 mmHg: :Reason For Study: ATRIAL FIBRILLATION : :Ordering Physician: CHRIS, : :LAILA Performed By: Shraddha Faustin : :Referring: LAILA PEREZ : + + Interpretation Summary The left ventricle is normal in size and wall thickness. The left ventricular ejection fraction is normal. The ejection fraction is estimated to be 60-65%. No significant change in LVEF. The right ventricle is normal in size and function. Mild to moderate MR. No significant change. There is moderate to severe tricuspid regurgitation. Compared to the prior echo exam, there has been no change in TR severity. The right ventricular systolic pressure is estimated to be at least 48 mmHg based on an estimated right atrial pressure of 3 mm Hg. Previously 41-48 mmHg. Procedure: A two-dimensional transthoracic echocardiogram with color flow and Doppler was performed. The study quality was technically adequate. Comparison is made with the echocardiogram of 09/06/2021. The patient was in sinus bradycardia with heart rates between 59-62 bpm during the exam. Left Ventricle: The left ventricle is normal in size and wall thickness. There is no thrombus. The ejection fraction is estimated to be 60-65%. The left ventricular ejection fraction is normal. There are no focal wall motion abnormalities. MV E/A: 1.1 Med Peak E' Jd: 7.7 cm/sec E/E' med: 8.6. Right Ventricle: The right ventricle is normal in size and function. Atria: The left atrium is severely dilated. There has been no significant change since the previous study. The right atrium is mildly dilated. The interatrial septum grossly appears intact with no obvious evidence for an atrial septal defect. Mitral Valve: There is mild mitral annular calcification. The mitral valve leaflets appear borderline thickened, but open well. There is mild to moderate mitral regurgitation. Aortic Valve: The aortic valve is trileaflet. The aortic valve is slightly calcified. The aortic valve opens well. There is no aortic valve stenosis. No aortic regurgitation is present. Tricuspid Valve: The tricuspid valve is normal. There is moderate to severe tricuspid regurgitation. The right ventricular systolic pressure is estimated to be at least 48 mmHg based on an estimated right atrial pressure of 3 mm Hg. Compared to the prior echo exam, there has been no change in TR severity. Pulmonic Valve: The pulmonic valve is not well seen, but is grossly normal. There is trace pulmonic regurgitation. Great Vessels: The aortic root is normal size. The dimensions of the ascending aorta are normal. Artifacts in the aortic arch. The IVC is of normal diameter and collapses greater than 50% with a sniff. This suggests a low right atrial pressure of 3 mm Hg. Pericardium/ Pleura There is no pericardial effusion. There is no pleural effusion. MMode/2D Measurements & Calculations LVIDd: 4.6 cm LVOT diam: 2.1 cm LVIDs: 3.2 cm Ao root diam: 3.1 cm FS: 29.6 % asc Aorta Diam: 2.8 cm IVSd: 0.75 cm Ao Arch Diam (Prox Trans): 2.6 cm LVPWd: 0.87 cm LV keita. diameter/BSA (cm/m^2): 2.7 LV sys. diameter/BSA (cm/m^2): 1.9 LA A2 area: 21.1 cm2 RA long axis: 6.3 cm LA A4 area: 23.3 cm2 RA area: 20.3 cm2 LA length (vol): 6.1 cm RA vol: 55.4 ml LA vol: 68.8 ml RA : 33.0 ml/m2 LA vol index: 41.0 ml/m2 IVC diam: 1.7 cm RVD1 (basal): 3.2 cm RVD2 (mid): 2.8 cm TAPSE: 1.7 cm Doppler Measurements & Calculations Ao V2 max: 108.4 cm/sec LVOT Max Jd: 67.8 cm/sec Ao V2 mean: 78.3 cm/sec LV V1 max P.8 mmHg Ao max P.7 mmHg LV V1 VTI: 15.9 cm Ao mean P.7 mmHg ERNA(I,D): 2.2 cm2 Ao V2 VTI: 24.6 cm ERNA(V,D): 2.1 cm2 sev ratio: 0.65 ERNA indexed to BSA (cm^2/m^2): 1.3 MV E max jd: 65.7 cm/sec TR max jd: 334.5 cm/sec MV A max jd: 60.8 cm/sec TR max P.8 mmHg MV E/A: 1.1 PA V2 max: 87.8 cm/sec Med Peak E' Jd: 7.7 cm/sec PA V2 mean: 60.6 cm/sec E/E' med: 8.6 PA mean P.6 mmHg Lat Peak E' Jd: 7.8 cm/sec PA pr(Accel): 51.6 mmHg E/E' lat: 8.5 E/e' average: 8.5 MV dec time: 0.18 sec SV(LVOT): 54.2 ml Reading Physician:12:42 PM
== END ==
LOC: ECHO 07:53
PROVIDERS: Family Provider Family Medicine; PCP Family Medicine; Referring Provider Family Medicine; Visit Provider Family Medicine
DX: I08.1 Rheumatic disorders of both mitral and tricuspid valves (principal); I48.0 Paroxysmal atrial fibrillation; R00.2 Palpitations
CPT/HCPCS: 93306

== ENCOUNTER → 2023-10-02 10:45 | Outpatient (CLI) | payer MEDICARE, OTHER, SELFPAY ==
--- NOTE | 2023-10-02 10:46 | DI.US.S_ITS ---
PROCEDURE: US THYROID INDICATIONS: THYROID NODULE TECHNIQUE: Real-time scanning was performed of the thyroid gland, with image documentation. COMPARISON: [facility], [place], US THYROID, 01/18/2023, 11:35. FINDINGS: Thyroid: Right lobe measures 4.8 x 1.1 x 1.5 cm. Left lobe measures 4.1 x 1.2 x 1.5 cm. Isthmus is 1.3 cm thick. Echotexture is homogeneous. Nodule number: 1 Location: Midpole left thyroid lobe Size: 0.8 x 0.6 x 0.5 cm unchanged from prior study. Composition: Predominantly cystic Echogenicity: Hypoechoic Shape: Wider than tall Margins: Smooth Echogenic foci: None Total points: 2 ACR TI-RADS category: Not suspicious Nodule number: 2 Location: Lower pole left thyroid lobe Size: 0.8 x 0.5 x 0.8 cm, previously 0.6 x 0.7 x 1 cm. Composition: Predominantly solid Echogenicity: Hypoechoic Shape: Wider than tall Margins: Smooth Echogenic foci: Non Total points: 4 ACR TI-RADS category: Moderately suspicious. Nodule number: 3 Location: Mid pole right thyroid lobe Size: 0.8 x 0.9 x 0.7 cm, previously 0.7 x 0.6 x 0.9 cm. Composition: Predominantly cystic Echogenicity: Hypoechoic Shape: Wider than tall Margins: Smooth Echogenic foci: Non Total points: 2 ACR TI-RADS category: Not suspicious Nodule number: 4 Location: Lower pole right thyroid lobe Size: 1.0 x 0.5 x 0.7 cm, previously 0.9 x 0.7 x 0.5 cm Composition: Predominantly solid Echogenicity: Hypoechoic Shape: Wider than tall Margins: Ill-defined Echogenic foci: Punctate Total points: 7 ACR TI-RADS category: Highly suspicious IMPRESSION: 1. Bilateral thyroid nodules are essentially stable in size and appearance. Continue ultrasound follow-up is recommended. ACR TI-RADS definitions and recommendations: TI-RADS 1 (benign): 0 points. FNA not needed. TI-RADS 2 (not suspicious): 2 points. FNA not needed. TI-RADS 3 (mildly suspicious): 3 points. * FNA if 2.5 cm or larger, follow up if 1.5 cm or larger (at 1, 3, and 5 years). TI-RADS 4 (moderately suspicious): 4-6 points. * FNA if 1.5 cm or larger, follow up if 1 cm or larger (at 1, 2, 3, and 5 years). TI-RADS 5 (highly suspicious): 7 points or more. * FNA if 1 cm or larger, follow up if 0.5 cm or larger (every year for 5 years). Dictated by: Alessio Ruelas M.D. on 10/02/2023 at 13:15 Approved by: Alessio Ruelas M.D. on 10/02/2023 at 13:21
== END ==
PROVIDERS: Family Provider Family Medicine; PCP Family Medicine; Referring Provider Family Medicine; Visit Provider Family Medicine
DX: E04.2 Nontoxic multinodular goiter (principal)
CPT/HCPCS: 76536

== ENCOUNTER → 2023-10-11 08:28 | Outpatient (ROUT) | payer MEDICARE, OTHER, SELFPAY ==
[2023-10-11 08:42] LABS: INR 2.7 (0.9-1.3); Prothrombin Time 31.1 SECONDS (9.4-12.5)
== END ==
PROVIDERS: Family Provider Family Medicine; PCP Family Medicine; Visit Provider Family Medicine
DX: I26.99 Other pulmonary embolism without acute cor pulmonale (principal); I48.0 Paroxysmal atrial fibrillation
CPT/HCPCS: 85610

== ENCOUNTER → 2023-11-08 09:47 | Outpatient (ROUT) | payer MEDICARE, OTHER, SELFPAY ==
[2023-11-08 09:55] LABS: INR 2.1 (0.9-1.3); Prothrombin Time 24.5 SECONDS (9.4-12.5)
== END ==
PROVIDERS: Family Provider Family Medicine; PCP Family Medicine; Visit Provider Family Medicine
DX: I26.99 Other pulmonary embolism without acute cor pulmonale (principal); I48.0 Paroxysmal atrial fibrillation
CPT/HCPCS: 85610

== ENCOUNTER → 2023-12-14 15:14 | Outpatient (ROUT) | payer MEDICARE, OTHER, SELFPAY ==
[2023-12-14 15:22] LABS: INR 2.2 (0.9-1.3); Prothrombin Time 25.1 SECONDS (9.4-12.5)
== END ==
PROVIDERS: Family Provider Family Medicine; PCP Family Medicine; Visit Provider Family Medicine
DX: I26.99 Other pulmonary embolism without acute cor pulmonale (principal); I48.0 Paroxysmal atrial fibrillation
CPT/HCPCS: 85610

== ENCOUNTER → 2023-12-28 09:49 | Outpatient (CLI) | payer MEDICARE, OTHER, SELFPAY ==
--- NOTE | 2023-12-28 | DI.US.S_ITS ---
PROCEDURE: BX BREAST PERC W VAC DEVICE COMPARISON: [facility], BX BREAST PERC W VAC DEVICE, 05/09/2023, 8:36. INDICATIONS: MASS OF RIGHT BREAST FINDINGS/IMPRESSION: Successful biopsy of a mass within the right breast. The clip was successfully deployed at the site of the biopsy.. Dictated by: Freddie Medellin M.D. on 12/29/2023 at 7:46 Approved by: Freddie Medellin M.D. on 12/29/2023 at 7:48
--- NOTE | 2023-12-28 | DI.MG.S_ITS ---
UNILATERAL RIGHT DIGITAL DIAGNOSTIC MAMMOGRAM 3D/2D - RIGHT BREAST POST-PROCEDURE IMAGING FOR MARKER PLACEMENT: 12/28/2023 CLINICAL: Post right breast ultrasound biopsy, clip placment imaging. Comparison is made to exams dated: 03/24/2023 mammogram, 01/24/2022 mammogram, 12/28/2023 ultrasound biopsy, and 04/28/2023 ultrasound - [facility]. The right breast is heterogeneously dense, which may obscure small masses (category c / 51-75% glandular tissue). There is a marker clip in the appropriate position in the right breast at 11 o'clock middle depth. This marker clip placement is at the biopsy site. IMPRESSION: POST PROCEDURE MAMMOGRAM FOR MARKER PLACEMENT There was a successful marker clip placement in the right breast middle depth. This exam was interpreted at Station ID: [id number]. NOTE: For mammograms, a report in lay terms will be sent to the patient. Approximately 15% of breast malignancies will not be visualized mammographically. In the management of a palpable breast mass, a negative mammogram must not discourage biopsy of a clinically suspicious lesion. Electronically Signed By: Freddie eason/sheeba:01/03/2024 11:17:18 copy to: RODGER LEMOS ACR BI-RADS Category Post-procedure mammogram for marker placement
--- NOTE | 2023-12-28 11:12 | PATH_ITS ---
[facility] Accession Number: [id number] No. of containers..01 Tissue . 01 Material submitted: . breast - RIGHT BREAST 1100 6 CM FN . 01 Diagnosis: A. RIGHT BREAST, 11 O'CLOCK, 6 CM FROM THE NIPPLE, BIOPSY: Invasive (ductal) carcinoma, grade 1 of 3 ([place] combined histologic grade, total score 5/9), with the following features: 1. Nuclear pleomorphism: Intermediate. (2/3) 2. Mitotic rate: Low. (1/3) 3. Tubular differentiation: Moderate degree. (2/3) 4. Size of invasive carcinoma: present on three cores, single largest dimension at least 4.5 mm in this sample. 5. Ductal carcinoma in situ: Not present. 6. Calcifications: Present in association with invasive carcinoma. 7. Lymphatic invasion: Not identified. 8. Prognostic markers: - Estrogen receptor: Positive (more than 99% tumor cells, Strong Intensity). - Progesterone receptor: Positive (more than 95% tumor cells, Strong Intensity). - HER2: Equivocal for protein overexpression by immunohistochemistry (2+); HER2 gene amplification by FISH studies will be performed and the results will be reported in an addendum. [facility] 01/01/2024 1622 Local . 01 Electronically signed: . Shara Sanchez MD, Pathologist NPI- [id number] . 01 Gross description: . Received one formalin-filled container, labeled with the patient's name, labeled R 11 o'clock 6 cm FN. Specimen is received with plastic filter in container, sample loose in container, are multiple fragments of yellow-quinonez soft tissue which range in size from 0.3 x 0.2 x 0.2 cm to 1.2 x 0.3 x 0.3 cm. All fragments are totally submitted in one cassette. . Possible collection date and time per requisition: 12/28/2023 at 11:26 a.m. Total fixation time approximately 15 hours. ([facility] [place]:[id number]) /MRV 12/29/2023 0832 Local . 01 Microscopic: . A panel of immunohistochemical studies is performed on block A1 in order the invasive carcinoma, with appropriately staining external controls. The invasive carcinoma demonstrates the following immunoprofile: . P63: Completely lost, in support of invasive carcinoma. Smooth muscle myosin: Completely lost, in support of invasive carcinoma. . Predictive marker immunohistochemical studies are performed on block A1 with the invasive carcinoma showing the following results: . Estrogen receptor (SP1): Positive (more than 99% of tumor cells staining, staining intensity: strong). Progesterone receptor (1E2): Positive more than 95% of tumor cells staining, staining intensity: strong). Her2 (4B5): Equivocal (2+) for protein overexpression by IHC; Her2 gene amplification by FISH studies will be performed and the results will be reported in an addendum. . Cold ischemic time is <5 minutes. The scoring criteria for breast biomarkers by immunohistochemistry is based on the ASCO/CAP guidelines (Hazel AC et al, J Clin Oncol: 2018 Nov 21;36(20):8723-4035 and Hollis ME et al, Arch Pathol Lab Med: 2009;134(6):907-22). Deparaffinized sections of formalin fixed tissue (along with appropriate positive controls) are incubated with the above antibody(s). Using the automated Barronett stainer, tissue is incubated with the designated antibody which is then localized by a non-biotin, dual polymer detection system. The external controls are reviewed for appropriate reactivity and found to be adequate. Results on the target cell population are indicated above. These tests have not been validated on decalcified tissue. This test was developed and its performance characteristics determined by [employer]. It has not been cleared or approved by the U.S. Food and Drug Administration. The FDA has determined that such clearance or approval is not necessary. This test is used for clinical purposes. It should not be regarded as investigational or for research. . 01 Pathologist provided ICD-10: C50.919 . 01 CPT . 456636, Q79772, K87039, 851877, 425457, 472964 Specimen Comment: A courtesy copy of this report has been sent to [facility] Performed at: [address] [address], [place], [place] [id number] MD Bebo Lee MD Phone: [phone]
== END ==
PROVIDERS: Family Provider Family Medicine; PCP Family Medicine; Referring Provider Family Medicine; Visit Provider Family Medicine
DX: R92.8 Other abnormal and inconclusive findings on diagnostic imaging of breast (principal); C50.411 Malignant neoplasm of upper-outer quadrant of right female breast; R92.331 Mammographic heterogeneous density, right breast; Z17.0 Estrogen receptor positive status [ER+]
CPT/HCPCS: 19083; 77065

== ENCOUNTER → 2024-01-18 09:58 | Outpatient (ROUT) | payer MEDICARE, OTHER, SELFPAY ==
[2024-01-18 10:11] LABS: INR 2.4 (0.9-1.3); Prothrombin Time 27.6 SECONDS (9.4-12.5)
== END ==
PROVIDERS: Family Provider Family Medicine; PCP Family Medicine; Visit Provider Family Medicine
DX: I48.0 Paroxysmal atrial fibrillation (principal); I26.99 Other pulmonary embolism without acute cor pulmonale
CPT/HCPCS: 85610

== ENCOUNTER 2024-01-31 11:48 | Day surgery (SDC) | payer MEDICARE, OTHER, SELFPAY ==
[2024-01-24 12:00] VITALS: BMI 21.3
[2024-01-31] VITALS (13 sets, daily range): BP systolic 112–186; BP diastolic 55–89; PULSE 44–66; RESP 12–18; TEMP 35.9–36.4; O2SAT 96–100; BMI 20.9
--- NOTE | 2024-01-31 | PATH_ITS ---
[facility] Accession Number: [id number] No. of containers..03 Tissue . 01 Material submitted: . PART A: breast - RIGHT BREAST TISSUE PART B: breast - LEFT BREAST TISSUE PART C: breast - [facility] LEFT BREAST . 01 Diagnosis: A. RIGHT BREAST, LUMPECTOMY: Invasive (ductal) carcinoma, grade 1 of 3 (Olivia combined histologic grade, total score 4/9), with the following features: Tumor size: 0.6 x 0.4 x 0.4 cm (by gross measurement). Nuclear pleomorphism: (2/3). Mitotic rate: (1/3). Tubular differentiation: (1/3). DCIS: Identified, intermediate nuclear grade, cribriform and solid type, no necrosis. Extensive intraductal component (EIC): Not identified. Calcifications: Not identified within invasive carcinoma. Lymphovascular invasion: Not identified. Resection margins: All margins are negative. Invasive carcinoma- Closest resection is 3 mm anterior margin. DCIS- Closest margin is 1 mm anterior margin and 1.5 mm posterior margin. Biopsy site changes present. Prognostic markers: Performed on patient's prior biopsy (path accession# [id number]). Estrogen receptor: Positive, more than 99% of tumor cells, strong intensity. Progesterone receptor: Positive, more than 95% tumor cells, strong intensity. HER2 by immunohistochemistry: Equivocal (2+). HER2 FISH studies: Negative/ not amplified. Pathologic stage: pT1b pNx. . B. LEFT BREAST, LUMPECTOMY: Invasive (ductal) carcinoma, grade 1 of 3 (Olivia combined histologic grade, total score 4/9), with the following features: Tumor size: 0.7 x 0.7 x 0.6 cm (by gross measurement). Nuclear pleomorphism: (2/3). Mitotic rate: (1/3). Tubular differentiation: (1/3). DCIS: Identified, intermediate nuclear grade, cribriform, solid and micropapillary types, no necrosis, associated with microcalcifications. Extensive intraductal component (EIC): Not identified. Calcifications: Not identified within invasive carcinoma. Lymphovascular invasion: Not identified. Resection margins: Invasive carcinoma- Closest resection is 1 mm inferior margin. DCIS- Focally involves posterior resection margin. All other margins are negative. Biopsy site changes present. Prognostic markers: Will be performed and reported in an addendum. Pathologic stage: pT1b pNx. . C. LEFT BREAST, NEW INFERIOR MARGIN: Benign breast parenchyma. No evidence of in-situ or invasive carcinoma. [facility] 02/07/2024 1639 Local . 01 Comment: Selected slides from this case have been reviewed by Dr.Julie Lackey who concurs the presence of bilateral invasive carcinomas and of focal involvement of left breast, posterior margin by DCIS. . 01 Electronically signed: . Loretta Hu MD, Pathologist NPI- [id number] . 01 Gross description: . A. Received: In formalin with two patient identifiers and right breast. Specimen: A previously inked right lumpectomy. Weight: 27 grams. Measurement: 5.0 cm superior to inferior, 5.9 cm medial to lateral, 2.4 cm anterior to posterior. Skin ellipse: Absent. Wire: Present, penetrating laterally and terminating posterior medially. Margins: Inked by the surgeon as follows(verbally confirmed over phone that the inking scheme follows the margin marker orientation): Anterior green, inferior blue, lateral orange, medial yellow, posterior black, superior red. Inking reinforced at the bench. Sliced: From lateral to medial into nine slices. Lesion: One lesion is identified. Description: An ill-defined, pale quinonez lesion. Size: 0.6 x 0.4 x 0.4 cm. Slices involved: Slices 6 and 7. Biopsy site: A Vision-shaped biopsy clip is identified within slice 7. Distance to margins: The lesion is 0.3 cm from the nearest green-inked margin, 0.8 cm from the black-inked margin, and greater than 0.1 mm from all remaining margins. Other: The cut surfaces are yellow to white fibroadipose tissue with fibrous tissue occupying less than 10% of the cut surface, and no additional lesions identified. Fixation: The specimen was removed on 01/31/2024, time not provided; cold ischemic time cannot be calculated; and total fixation time is approximately 65 hours following additional fixation. Lining Cutter sections are submitted as follows: A1: Rep slice 1, orange margin perpendicular. A2-A3: Composite slice 3. A4-A5: Composite slice 5. A6-A7: Composite slice 6, with lesion in A7. A8-A9: Composite slice 7, with biopsy site in A9. A10: Rep slice 9, yellow margin perpendicular. See diagram. B. Received: In formalin with two patient identifiers and left breast tissue. Specimen: A previously inked left lumpectomy. Weight: 13 grams. Measurement: 4.5 cm superior to inferior, 3.1 cm medial to lateral, 2.4 cm anterior to posterior. Skin ellipse: Absent. Wire: Present, penetrating laterally and terminating inferior posteriorly. Margins: Inked by the surgeon as follows (verbal confirmation that the margin marker ink pattern was used): Anterior green, inferior blue, lateral orange, medial yellow, posterior black, superior red. Inking reinforced at the bench. Sliced: From superior to inferior into seven slices. Lesion: One lesion identified. Description: An ill-defined quinonez firm lesion. Size: 0.7 x 0.7 x 0.6 cm. Slices involved: Slices 4 and 5. Biopsy site: A Vision-shaped biopsy clip is found within slice 6. Distance to margins: The lesion is located less than 0.1 cm from the blue-inked margin, 0.4 cm from the yellow-inked margin, 0.4 cm from the green-inked margin, 0.5 cm from the black-inked margin, and greater than 1 cm from all remaining margins. Other: The remaining cut surfaces are yellow to white fibroadipose tissue with fibrous tissue occupying [id number]% of the cut surface, with no additional lesions identified. Fixation: The specimen was removed on 01/31/2024, time not provided; cold ischemic time cannot be calculated; and total fixation time is approximately 65 hours following additional fixation. The specimen is submitted entirely as follows: B1-B2: Entire slice 1, red margin perpendicular. B3: Slice 2. B4-B5: Composite slice 3. B6-B7: Composite slice 4, with lesion in B6. B8: Entire slice 5. B9: Entire slice 6, with biopsy site. B10: Slice 7, blue margin perpendicular. C. Received in formalin with two patient identifiers and new inferior margin left breast, is an unoriented fragment of fibroadipose tissue weighing 4 grams and measuring 3.7 x 2.5 x 1.1 cm. The slightly concave surface is inked black while the slightly convex surface is inked green. The specimen is serially sectioned into six slices to reveal an unremarkable cut surface with fibrous tissue occupying less than 10% of the cut surface. No distinct lesions are identified, and the specimen is submitted entirely in C1-C6, with the first and last slices sectioned perpendicularly. ([facility]:[id number]) /MRV 02/01/2024 1036 Local . 01 Microscopic: . A and B: Immunostains are performed to confirm the presence of DCIS and also to confirm invasive carcinoma. P63, smooth muscle myosin heavy chain, CK5/6 and ER immunostains support the diagnostic findings. All controls stain appropriately. . * This test was developed and its performance characteristics determined by [facility]. It has not been cleared or approved by the U.S. Food and Drug Administration. The FDA has determined that such clearance or approval is not necessary. This test is used for clinical purposes. It should not be regarded as investigational or for research. . 01 Pathologist provided ICD-10: C50.411, C50.412 . 01 CPT . 469793, 631286, 970205, F95892, X74390 Specimen Comment: A courtesy copy of this report has been sent to [phone] Performed at: [address] [address], [place], [place] [id number] MD Bebo Lee MD Phone: [phone]
--- NOTE | 2024-01-31 14:02 | SUR.PREOP ---
Upon return from DI patient reported mid chest tightness, denied pain. VS similar to admit. Chasidy Abreu CRNA, notified. EKG ordered and in process.
[2024-01-31] MEDS: LACTATED RINGERS 1,000 ML 42 ML IV (14:05)
--- NOTE | 2024-01-31 14:15 | EKG_ITS ---
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
--- NOTE | 2024-01-31 14:42 | PM.PREOP ---
Pre-operative Note COVID-19 COVID-19 status: Not tested Interval Note History & Physical reviewed/Exam performed by Physician: Yes Changes to H&P: No ASA Class (for procedural sedation): III
[2024-01-31] MEDS: ACETAMINOPHEN IV 1,000 MG/100 ML VIAL 400 MG IV (15:08)
--- NOTE | 2024-01-31 15:13 | SUR.OPER ---
Supine on padded OR bed, head on pillow, arms secured on padded arm boards at <90 degrees abduction, legs uncrossed, safety belt at thigh, tape over blanket over lower legs.
[2024-01-31] MEDS: BUPIVACAINE 0.25% (PF) 30 ML, EPINEPHrine 0.15 MG INJ (16:14)
--- NOTE | 2024-01-31 16:39 | P.OP_ITS ---
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 No antibiotic was administered. The patient was brought to the operating room, placed on the table in the supine position, general anesthesia was induced. Arms were abducted on arm boards. Chasidy Abreu CRNA performed regional blocks of both breasts. Bilateral breasts were prepped and draped in the usual fashion. A time-out was performed. We started on right breast where the cancer was. We made a 7 cm incision just inferior to the wire. We created flaps superior and inferior to the incision. We trimmed the wire with wire cutters and hold it into the wound. Next we dissected down to the chest wall keeping the wire within the center portion of specimen. We reached pectoral fascia at the deepest aspect of the dissection. The specimen was excised with the wire intact. The specimen was marked with paint for orientation. The specimen was sent to Radiology for specimen mammogram. We then packed the wound with a lap. Next we moved on to the left side. We made a 6 cm incision inferior to the wire. We created flaps superior and inferior to the incision and trimmed the wire and pulled it into the wound. We dissected out the specimen and noted that the tip the wire was very close to the inferior aspect of the specimen so we took an additional slice of tissue from the inferior aspect of the wound cavity and called it ?new left breast inferior margin. We painted the specimen for orientation. The specimen was sent to Radiology for specimen mammogram. We then packed the wound with a lap. We injected some local anesthetic into the dermis and closed the incisions in layers using multiple interrupted 3-0 Vicryl dermal sutures followed by a running 4-0 Monocryl subcuticular closure. Radiology called the OR reporting that both specimens demonstrated that the biopsy clips were within the specimens. Steri-Strips were applied followed by dry gauze and a breast binder. EBL: 10 mL Specimen: Right breast, left breast, new left inferior margin Post-operative Condition: stable Disposition: PACU
--- NOTE | 2024-01-31 17:24 | SUR.PHASEI ---
Report called to Christie.
--- NOTE | 2024-01-31 17:51 | SUR.PHASEI ---
Patient transferred to the floor with her belongings bag and cloth bag. Bedside report given to Christie. VS stable. Dressing CDI. IV patent. Patient update called to patient's son, Samuel, per patient request.
[2024-01-31] MEDS: ACETAMINOPHEN 325 MG TABLET 650 MG PO (18:06)
--- NOTE | 2024-01-31 19:38 | PC.NURSE ---
Day Shift Pt reporting increasing pain to left eye, unable to open due to pain, appears red, no purulent drainage. Received call to pt's room and pt had called her eye doctor (Dr. Mills) who wanted to speak with the nurse. This ad copy writer spoke with Dr. Mills who expressed concerns about pt having a corneal abrasion and relayed her recommendations for treatment. Dr. Collazo was called and Dr. Mills's recommendations and concerns were communicated. Dr. Collazo ordered eye drops and eye ointment (see orders) and said he would see patient in the morning. Pt updated.
[2024-01-31] MEDS: PROPARACAINE 0.5% OPHTH SOL 1 DROPS EYE-LEFT (20:24)
[2024-01-31] MEDS: ERYTHROMYCIN OPHTH 1 GM OINT 1 APPLIC EYE-LEFT (21:11)
[2024-02-01] MEDS: ACETAMINOPHEN 325 MG TABLET 650 MG PO ×2 (00:10→06:15)
[2024-02-01] MEDS: ERYTHROMYCIN OPHTH 1 GM OINT 1 APPLIC EYE-LEFT ×3 (00:11→09:49)
[2024-02-01 08:00] VITALS: BP 178/91; PULSE 68; RESP 18; TEMP 36.6; O2SAT 99
--- NOTE | 2024-02-01 10:19 | PM.PN.1 ---
Subjective Subjective Date Patient Seen: 02/01/24 Time Patient Seen: 10:19 Interval history: [place] experienced left eye pain yesterday after surgery. Better after proparicaine eye drops. No incisional pain. Exam Vital Signs (past 8 hours): - 02/01/24 08:00 Temperature 98 F Pulse Rate 68 Respiratory Rate 18 Blood Pressure 178/91 H Pulse Oximetry 99 Oxygen Delivery Method Room Air Narrative Exam Narrative: No acute distress Pupils equal and reactive Normal sclera No periorbital edema, erythema or discharge Const General: No acute distress Resp Effort & Inspection: normal respiratory effort PFSH Medical History Paroxysmal atrial fibrillation Thyroid nodule Stage 3a chronic kidney disease (CKD) Severe tricuspid regurgitation Lichen sclerosus of vulva Osteopenia Multiple nodules of lung Interstitial lung disease Insomnia Dyspnea HNP (herniated nucleus pulposus), cervical Degenerative joint disease (DJD) of hip Facet arthropathy, cervical Arthritis Pulmonary embolism Hypertension Surgical History History of hip replacement History of cholecystectomy Family History Mother Hypertension Cervical cancer Father Emphysema lung Social History marital status: number of children: 2 household members: none education level: master's degree occupational status: previously employed 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 Smoking Status: Never smoker alcohol intake: never substance use type: does not use caffeine: No Type(s) of exercise: swimming and other frequency: 3-4 times per week Assessment & Plan Assessment and plan (1) Breast cancer, right: Qualifiers: Breast location: upper outer quadrant of breast Estrogen receptor status: positive Patient sex: female Qualified Code(s): C50.411 - Malignant neoplasm of upper-outer quadrant of right female breast; Z17.0 - Estrogen receptor positive status [ER+] Status: Acute (2) Atypical ductal hyperplasia of left breast: Status: Acute Plan Home today Time-Based Coding :: [TOTAL MINUTES] spent with patient and on the chart (including review of chart, obtaining history, exam, reviewing outside data, placing orders, documenting exam and treatment plan, and counseling patient) on [DATE].
--- NOTE | 2024-02-01 11:02 | CM.DANOTE ---
Initial DCP Assessment Visit Note Reviewed EMR and team rounds for status updates. Met with pt at bedside to introduce self and role, pt was found to be dressed and preparing for home d/c. She's alert/oriented, and states that her pain is well controlled at this time. Pt lives independently in her own home at baseline. She has a close friend who will be transporting her home and will provide for postoperative care needs. Pt denies any CM assistance or resource needs for d/c. Payor: Medicare Attending: Dr. Collazo Pt is a 84 year-old F post-op day 1 from bilateral lumpectomies and needle localizations. She initially consulted with Dr. Collazo in May for a finding in her left breast, a biopsy was done and it resulted in path proven atypical ductal hyperplasia. It was recommended that she have a lumpectomy at that time, however she never followed through. She was seen again in December, and had a biopsy of her right breast, which was positive for invasive adenocarcinoma. Due to her anxiety and concerns about surgery, anesthesia, and opiods, the plan was made for bilateral lumpectomies. Per Dr. Collazo, she is not a candidate for chemotherapy or radiation, and she not wanting to have any further surgeries. She has a f/u with Dr. Collazo on 02/12/24 to review the new pathology, and make further decisions from there re: any non-invasive tx recommendations or Oncology f/u. Discharge Planning/Care Management Advanced directive,confirm from FACILITY Start: 01/31/24 18:00 Freq: Q24H Status: Active Protocol: Document 01/31/24 18:45 SCOTT (Rec: 01/31/24 18:45 SCOTT [id number]) Advance Directive, confirm on record Time 18:45 Person contacted pt Copy received No CM Discharge Assessment Start: 02/01/24 10:53 Freq: Status: Active Protocol: Document 02/01/24 10:53 DPL (Rec: 02/01/24 10:55 DPL [id number]) Discharge Planning Assessment Assigned Golf Cart Repairer ED Snyder Advance Directives? Yes Advance Directives on File No History Provided By Patient,Medical Record Has Patient been admitted in last 30 No days? Prior Living Arrangements House Household Members none Type of transporation used prior to Drives own vehicle admit Independent with ADL's Yes Is patient alert and oriented? Yes Comment N/A Caregiver for Another No Comment No identified d/c needs at this time. Barriers to Discharge No Discharge Plan Home Transportation Arrangement Friend Referrals Initiated None needed Review Status In Process Please Provide Date Initial DC 02/01/24 Assessment Was Performed Pre-Anesthesia Assessment Start: 01/24/24 12:00 Freq: Status: Active Protocol: Document 01/24/24 12:00 TC (Rec: 01/24/24 12:11 TC [id number]) Pre-Anesthesia Assessment Preferred Name [place] Patient Information Reviewed Via Chart Review Assessment Completed With Other Diagnostic Results BMP/CMP,CBC Comment IH 07/29/23 Primary Care Provider Екатерина Jo Medical Clearance Received Not Applicable Seen Specialist in Last 12 Months Yes Specialist Seen Emergency,General surgeon, Oncologist Preferred Language Nepali Height 167.64 cm Weight 59.874 kg Body Mass Index (BMI) 21.3 Hx Anesthesia Reactions No: severe PONV from opiates Hx Family Anesthesia Reaction No Hx Malignant Hyperthermia No Hx Blood Transfusion Reaction No alcohol intake never alcohol intake frequency 0-2 drinks per day Smoking Status Never smoker Substance Use Type does not use Is patient on oxygen? No Hx Sleep Apnea No CPAP/BIPAP use not prescribed Suspected Sleep Apnea No Currently Taking a Beta Cale Yes: Propanolol Anti-Coagulant Therapy Yes: Warfarin Has a Navigation Teacher Yes: Leslie Navigation Teacher name Leslie Cardiac Testing Yes Hx Pacemaker/ICD No Pacemaker Rep Required? No Cardiac Clearance Received Not Applicable Hx Urinary Self Catheterization No Diabetes No Presence of External or Internal Medical Yes: titanium right hip, lns Devices in l eye Received a COVID vaccine? Yes Lives With family,none Patient Discharge Plan Description Return Home Identifying Code for Release of Patient Lotus Information Health Care Proxy/Next of Kin Lotus- friend Health Care Proxy Advance Directives? Yes Power of Cardiovascular Surgeon No
--- NOTE | 2024-02-01 12:59 | PC.NURSE ---
Reviewed d/c instructions with Patient, including medications, post op care, follow up appointments with provider, and s/s of infection. S/s of stroke discussed. IV removed. Patient left unit via w/c with all belongings, escorted by CSM CONSULTANT and friend.
== END 2024-02-01 13:13 | disposition home or self-care (01) ==
LOC: OR 11:49 → AC 15:21
PROVIDERS: Family Provider Family Medicine; PCP Family Medicine; Referring Provider Surgery; Visit Provider Surgery
PROC: (CPT 19125; principal; 2024-01-31 14:45)
DX: C50.911 Malignant neoplasm of unspecified site of right female breast; C50.912 Malignant neoplasm of unspecified site of left female breast; Z17.0 Estrogen receptor positive status [ER+]; I48.0 Paroxysmal atrial fibrillation
CPT/HCPCS: 19125; 19285; 19301; 76098; 77065; 93005; C1819; J0134; J0171; J1100; J2405; J2704; J3010

== ENCOUNTER → 2024-03-06 08:28 | Outpatient (ROUT) | payer MEDICARE, OTHER, SELFPAY ==
[2024-01-31 17:51] VITALS: BMI 20.9
[2024-03-06 08:34] LABS: INR 2.1 (0.9-1.3)
== END ==
PROVIDERS: Family Provider Family Medicine; PCP Family Medicine; Visit Provider Family Medicine
DX: I26.99 Other pulmonary embolism without acute cor pulmonale (principal); I48.0 Paroxysmal atrial fibrillation
CPT/HCPCS: 85610

== ENCOUNTER → 2024-03-15 09:16 | Outpatient (ROUT) | payer MEDICARE, OTHER, SELFPAY ==
[2024-01-31 17:51] VITALS: BMI 20.9
[2024-03-15 09:29] LABS: INR 2.4 (0.9-1.3); Prothrombin Time 26.8 SECONDS (9.4-12.5)
== END ==
PROVIDERS: Family Provider Family Medicine; PCP Family Medicine; Visit Provider Family Medicine
DX: I26.99 Other pulmonary embolism without acute cor pulmonale (principal); I48.0 Paroxysmal atrial fibrillation
CPT/HCPCS: 85610

== ENCOUNTER → 2024-04-16 14:42 | Outpatient (ROUT) | payer MEDICARE, OTHER, SELFPAY ==
[2024-01-31 17:51] VITALS: BMI 20.9
[2024-04-16 14:58] LABS: INR 3.2 (0.9-1.3); Prothrombin Time 34.9 SECONDS (9.4-12.5)
== END ==
PROVIDERS: Family Provider Family Medicine; PCP Family Medicine; Visit Provider Family Medicine
DX: I26.99 Other pulmonary embolism without acute cor pulmonale (principal); I48.0 Paroxysmal atrial fibrillation
CPT/HCPCS: 85610

== ENCOUNTER → 2024-04-22 09:44 | Outpatient (ROUT) | payer MEDICARE, OTHER, SELFPAY ==
[2024-01-31 17:51] VITALS: BMI 20.9
[2024-04-22 09:57] LABS: INR 3.7 (0.9-1.3); Prothrombin Time 40.3 SECONDS (9.4-12.5)
== END ==
PROVIDERS: Family Provider Family Medicine; PCP Family Medicine; Visit Provider Family Medicine
DX: I26.99 Other pulmonary embolism without acute cor pulmonale (principal); I48.0 Paroxysmal atrial fibrillation
CPT/HCPCS: 85610

== ENCOUNTER → 2024-05-07 11:14 | Outpatient (CLI) | payer MEDICARE, OTHER, SELFPAY ==
[2024-01-31 17:51] VITALS: BMI 20.9
== END ==
LOC: RESP 11:15
PROVIDERS: Family Provider Family Medicine; PCP Family Medicine; Referring Provider Family Medicine; Visit Provider Family Medicine
DX: R06.02 Shortness of breath (principal); I48.19 Other persistent atrial fibrillation; R94.2 Abnormal results of pulmonary function studies
CPT/HCPCS: 94060; 94726; 94729

== ENCOUNTER → 2024-05-10 15:14 | Outpatient (ROUT) | payer MEDICARE, OTHER, SELFPAY ==
[2024-01-31 17:51] VITALS: BMI 20.9
[2024-05-10 15:38] LABS: INR 1.9 (0.9-1.3); Prothrombin Time 21.4 SECONDS (9.4-12.5)
== END ==
PROVIDERS: Family Provider Family Medicine; PCP Family Medicine; Visit Provider Family Medicine
DX: I26.99 Other pulmonary embolism without acute cor pulmonale (principal); I48.0 Paroxysmal atrial fibrillation
CPT/HCPCS: 85610

== ENCOUNTER → 2024-05-17 10:33 | Outpatient (ROUT) | payer MEDICARE, OTHER, SELFPAY ==
[2024-01-31 17:51] VITALS: BMI 20.9
[2024-05-17 10:40] LABS: INR 2.6 (0.9-1.3); Prothrombin Time 28.5 SECONDS (9.4-12.5)
== END ==
PROVIDERS: Family Provider Family Medicine; PCP Family Medicine; Visit Provider Family Medicine
DX: I26.99 Other pulmonary embolism without acute cor pulmonale (principal); I48.0 Paroxysmal atrial fibrillation
CPT/HCPCS: 85610

== ENCOUNTER → 2024-05-31 09:11 | Outpatient (ROUT) | payer MEDICARE, OTHER, SELFPAY ==
[2024-01-31 17:51] VITALS: BMI 20.9
[2024-05-31 09:24] LABS: INR 2.5 (0.9-1.3); Prothrombin Time 27.6 SECONDS (9.4-12.5)
== END ==
PROVIDERS: Family Provider Family Medicine; PCP Family Medicine; Visit Provider Family Medicine
DX: I26.99 Other pulmonary embolism without acute cor pulmonale (principal); I48.0 Paroxysmal atrial fibrillation
CPT/HCPCS: 85610

== ENCOUNTER → 2024-06-06 09:59 | Outpatient (ROUT) | payer MEDICARE, OTHER, SELFPAY ==
[2024-01-31 17:51] VITALS: BMI 20.9
[2024-06-06 10:15] LABS: INR 2.6 (0.9-1.3)
== END ==
PROVIDERS: Family Provider Family Medicine; PCP Family Medicine; Visit Provider Family Medicine
DX: Z79.01 Long term (current) use of anticoagulants (principal)
CPT/HCPCS: 85610

== ENCOUNTER → 2024-06-14 10:35 | Outpatient (ROUT) | payer MEDICARE, OTHER, SELFPAY ==
[2024-01-31 17:51] VITALS: BMI 20.9
[2024-06-14 10:41] LABS: INR 2.8 (0.9-1.3); Prothrombin Time 31.3 SECONDS (9.4-12.5)
== END ==
PROVIDERS: Family Provider Family Medicine; PCP Family Medicine; Visit Provider Family Medicine
DX: I48.19 Other persistent atrial fibrillation (principal); Z79.01 Long term (current) use of anticoagulants
CPT/HCPCS: 85610

== ENCOUNTER → 2024-06-18 14:15 | Outpatient (CLI) | payer MEDICARE, OTHER, SELFPAY ==
[2024-01-31 17:51] VITALS: BMI 20.9
--- NOTE | 2024-06-18 | DI.CT.S_ITS ---
PROCEDURE: CT CHEST HIGH RESOLUTION INDICATIONS: ILD TECHNIQUE: Noncontrast 1.0 and 5.0 mm thick contiguous axial sections from the pulmonary apex to the posterior costophrenic angles, with 7 mm thick coronal and sagittal MIP reformats. 1 mm thick dynamic expiratory images acquired through the upper, mid, and lower lungs. 1.0 mm thick axial sections acquired from the javan to the posterior costophrenic angles in the prone end-inspiration position. For radiation dose reduction, the following was used: automated exposure control, adjustment of mA and/or kV according to patient size. COMPARISON: [facility], CT, CT CHEST WO CON, 08/15/2023, 9:28. [facility], CT, CT CHEST WO CON, 06/13/2022, 9:27. FINDINGS: Image quality: Diagnostic Lungs and pleura: Scattered scarring. Mild reticulation is seen in the right lower lung, similar to prior imaging. There is no honeycombing. [id number]-[id number] diffuse air trapping and bronchial wall thickening stable small pulmonary nodules for example in the right image 6/64 and on the left 6/115. No significant changes on prone imaging. No pleural effusions. Mediastinum, heart, and esophagus: Cardiomegaly. No pathologic lymph nodes by size criteria. Coronary calcifications. Chest wall and thyroid: Unremarkable Upper abdomen: Cholecystectomy clips. No gross abnormality on these noncontrast images Bones: There are degenerative changes. IMPRESSION: Mild reticulation in the right lower lung, similar to prior imaging, likely mild fibrosis. No honeycombing. Similar bands of chronic atelectasis and scarring also again seen. Diffuse bronchial wall thickening with [id number] diffuse parenchymal air trapping, compatible with chronic bronchitis and bronchiolitis. ATS 2018 HRCT classification: Not compatible with UIP ILD Consider continued follow-up for the pulmonary nodules. Dictated by: Jac Leal M.D. on 06/18/2024 at 15:42 Approved by: Jac Leal M.D. on 06/18/2024 at 15:50
== END ==
LOC: CT 14:17
PROVIDERS: Family Provider Family Medicine; PCP Family Medicine; Referring Provider Family Medicine; Visit Provider Family Medicine
DX: J84.89 Other specified interstitial pulmonary diseases (principal); I51.7 Cardiomegaly; R91.8 Other nonspecific abnormal finding of lung field; I25.10 Atherosclerotic heart disease of native coronary artery without angina pectoris; J98.11 Atelectasis; J98.4 Other disorders of lung
CPT/HCPCS: 71250

== ENCOUNTER → 2024-06-21 11:13 | Outpatient (ROUT) | payer MEDICARE, OTHER, SELFPAY ==
[2024-01-31 17:51] VITALS: BMI 20.9
[2024-06-21 11:35] LABS: INR 2.6 (0.9-1.3); Prothrombin Time 28.8 SECONDS (9.4-12.5)
== END ==
PROVIDERS: Family Provider Family Medicine; PCP Family Medicine; Visit Provider Family Medicine
DX: I48.19 Other persistent atrial fibrillation (principal); Z79.01 Long term (current) use of anticoagulants
CPT/HCPCS: 85610

== ENCOUNTER → 2024-06-26 10:17 | Outpatient (CLI) | payer MEDICARE, OTHER, SELFPAY ==
[2024-01-31 17:51] VITALS: BMI 20.9
--- NOTE | 2024-06-26 10:19 | DI.RAD.S_ITS ---
PROCEDURE: XR DEXA AXIAL SKELETON INDICATIONS: OSTEOPENIA,ASYMPTOMATIC MENOPAUSAL STATE COMPARISON: [facility], , DEXA AXIAL SKELETON, 06/29/2017, 10:43. FINDINGS: Lumbar Spine: Bone mineral density 0.742 (previously 0.972) g/cm2, T score -2.8 (previously-1.8). Left Femoral Neck: Bone mineral density 0.550 (previously 0.686) g/cm2, T score -2.7 (previously-2.5). Left Hip: Bone mineral density 0.581 g/cm2, T score -3.0. Left Forearm: Bone mineral density 0.569 (previously 0.621) g/cm2, T score -2.1 (previously-2.9). Fracture Risk Calculation (when applicable): 10-year fracture risk of a major osteoporotic fracture 24 percent and of a hip fracture 11 percent. (T score greater or equal to -1.0 to: NORMAL) (T score from -1.1 to -2.4: OSTEOPENIA) (T score less than or equal to -2.5: OSTEOPOROSIS) IMPRESSION: Osteoporosis---recommend repeat DEXA in 2 years or sooner if medically necessary, for reassessment. Dictated by: Sourav Damian M.D. on 06/26/2024 at 14:14 Approved by: Sourav Damian M.D. on 06/26/2024 at 14:19
== END ==
LOC: RAD 10:18
PROVIDERS: Family Provider Family Medicine; PCP Family Medicine; Referring Provider Internal Medicine Hematology & Oncology; Visit Provider Internal Medicine Hematology & Oncology
DX: Z78.0 Asymptomatic menopausal state (principal); M81.0 Age-related osteoporosis without current pathological fracture
CPT/HCPCS: 77080; 77081

== ENCOUNTER → 2024-06-27 09:09 | Outpatient (CLI) | payer MEDICARE, OTHER, SELFPAY ==
[2024-01-31 17:51] VITALS: BMI 20.9
--- NOTE | 2024-06-27 09:11 | DI.ECHO.S_ITS ---
[place] [facility] : : [id number] : [address] : : [id number] : : Phone: [phone] Echocardiogram Report + + :Name: NORY MAGAÑA Study Date: 06/27/2024 Height: 65 in : :[facility] ReadingLocation: Weight: 131 lb : : Gender: Female BSA: 1.7 m2 : :: 1940 Age: 84 yrs BP: 144/113 mmHg: :Reason For Study: FATIGUE, MURMUR : :Ordering Physician: MICAH, : :CANDICE Performed By: Sudarshan Pastor : :Referring: CANDICE OBRIEN : + + Interpretation Summary The patient was in atrial fibrillation with heart rates between 80-121 bpm during the exam. Previously sinus rhythm. The left ventricle is grossly normal size. Left ventricular ejection fraction is estimated to be 50 +/- 5%. Previous LVEF 60 to 65%. The right ventricle is normal in size and function. There is severe biatrial enlargement. There is a flat closure plane of the the mitral valve leaflets. Mitral annulus is dilated. Moderate to severe MR. Previously mild to moderate. Compared to the prior echo study, there has been an increase in the severity of mitral regurgitation. The tricuspid annulus is dilated. There is moderate to severe tricuspid regurgitation. Compared to the prior echo exam, there has been no change in TR severity. The right ventricular systolic pressure is estimated to be at least 43 mmHg based on an estimated right atrial pressure of 8 mm Hg. Previously 48 mmHg. Procedure: A two-dimensional transthoracic echocardiogram with color flow and Doppler was performed. The study quality was technically good. Comparison is made with the echocardiogram of 09/05/2023. The patient was in atrial fibrillation with heart rates between 80-121 bpm during the exam. Left Ventricle: Left ventricular wall thickness is mildly increased. The left ventricle is grossly normal size. There is no ventricular septal defect visualized. Left ventricular ejection fraction is estimated to be 50 +/- 5%. There are no focal wall motion abnormalities. Septal motion is consistent with conduction abnormality. Diastolic function could not be accurately assessed due to atrial fibrillation. Right Ventricle: The right ventricle is normal in size and function. Atria: There is severe biatrial enlargement. The left atrium has remained unchanged in size since the prior echo exam. There is no Doppler evidence for an atrial septal defect. Mitral Valve: There is a flat closure plane of the the mitral valve leaflets. There is mild mitral annular calcification. There is moderate to severe mitral regurgitation. Compared to the prior echo study, there has been an increase in the severity of mitral regurgitation. Aortic Valve: The aortic valve is trileaflet. The aortic valve is mildly calcified. There is no hemodynamically significant valvular aortic stenosis. No aortic regurgitation is present. Tricuspid Valve: The tricuspid annulus is dilated. There is moderate to severe tricuspid regurgitation. Compared to the prior echo exam, there has been no change in TR severity. The right ventricular systolic pressure is estimated to be at least 43 mmHg based on an estimated right atrial pressure of 8 mm Hg. Pulmonic Valve: The pulmonic valve leaflets are thin and pliable; valve motion is normal. There is no pulmonic valvular regurgitation. Great Vessels: The aortic root is normal size. The dimensions of the ascending aorta are normal. The pulmonary artery is normal size. The IVC is dilated (diameter is greater than 2.1 cm) yet it collapses greater than 50% with a sniff. This suggests a right atrial pressure of 8 mm Hg. Pericardium/ Pleura There is no pericardial effusion. There is no pleural effusion. MMode/2D Measurements & Calculations LVIDd: 3.8 cm LVOT diam: 1.9 cm LVIDs: 2.7 cm Ao root diam: 3.1 cm FS: 27.9 % asc Aorta Diam: 3.1 cm EPSS: 0.52 cm IVSd: 1.1 cm LVPWd: 1.1 cm LV keita. diameter/BSA (cm/m^2): 2.3 LV sys. diameter/BSA (cm/m^2): 1.7 LA A2 area: 33.7 cm2 RA long axis: 7.6 cm LA A4 area: 31.5 cm2 RA area: 28.9 cm2 LA length (vol): 7.7 cm RA vol: 93.6 ml LA vol: 116.5 ml RA : 56.6 ml/m2 LA vol index: 70.5 ml/m2 IVC diam: 2.2 cm RVD1 (basal): 2.3 cm TAPSE: 1.2 cm Doppler Measurements & Calculations Ao V2 max: 98.8 cm/sec LVOT Max Jd: 51.5 cm/sec Ao V2 mean: 66.6 cm/sec LV V1 max P.1 mmHg Ao max P.9 mmHg LV V1 VTI: 8.1 cm Ao mean P.0 mmHg ERNA(I,D): 1.6 cm2 Ao V2 VTI: 13.9 cm ERNA(V,D): 1.4 cm2 sev ratio: 0.58 ERNA indexed to BSA (cm^2/m^2): 0.97 MV E max jd: 75.6 cm/sec TR max jd: 297.7 cm/sec MV A max jd: 33.1 cm/sec TR max P.4 mmHg MV E/A: 2.3 PA V2 max: 51.2 cm/sec Med Peak E' Jd: 7.2 cm/sec PA V2 mean: 28.7 cm/sec E/E' med: 10.5 PA mean P.41 mmHg Lat Peak E' Jd: 7.5 cm/sec PA pr(Accel): 53.3 mmHg E/E' lat: 10.1 E/e' average: 10.3 MV dec time: 0.12 sec SV(LVOT): 22.3 ml Reading Physician:02:22 PM
== END ==
PROVIDERS: Family Provider Family Medicine; PCP Family Medicine; Referring Provider Internal Medicine Cardiovascular Disease; Visit Provider Internal Medicine Cardiovascular Disease
DX: I08.1 Rheumatic disorders of both mitral and tricuspid valves (principal); I48.19 Other persistent atrial fibrillation; I27.21 Secondary pulmonary arterial hypertension
CPT/HCPCS: 93306

== ENCOUNTER → 2024-06-28 10:16 | Outpatient (ROUT) | payer MEDICARE, OTHER, SELFPAY ==
[2024-01-31 17:51] VITALS: BMI 20.9
[2024-06-28 10:29] LABS: INR 2.7 (0.9-1.3); Prothrombin Time 29.7 SECONDS (9.4-12.5)
== END ==
PROVIDERS: Family Provider Family Medicine; PCP Family Medicine; Visit Provider Family Medicine
DX: I48.19 Other persistent atrial fibrillation (principal); Z79.01 Long term (current) use of anticoagulants
CPT/HCPCS: 85610

== ENCOUNTER → 2024-07-09 16:26 | Outpatient (CLI) | payer MEDICARE, OTHER, SELFPAY ==
[2024-01-31 17:51] VITALS: BMI 20.9
[2024-07-09 16:43] LABS: INR 2.1 (0.9-1.3); Prothrombin Time 23.5 SECONDS (9.4-12.5)
== END ==
PROVIDERS: Family Provider Family Medicine; PCP Family Medicine; Visit Provider Family Medicine
DX: I48.19 Other persistent atrial fibrillation (principal); Z79.01 Long term (current) use of anticoagulants; J84.9 Interstitial pulmonary disease, unspecified; R06.09 Other forms of dyspnea
CPT/HCPCS: 85610; 99214

== ENCOUNTER → 2024-07-29 10:58 | Outpatient (ROUT) | payer MEDICARE, OTHER, SELFPAY ==
[2024-01-31 17:51] VITALS: BMI 20.9
[2024-07-29 11:15] LABS: INR 1.9 (0.9-1.3); Prothrombin Time 21.7 SECONDS (9.4-12.5)
== END ==
PROVIDERS: Family Provider Family Medicine; PCP Family Medicine; Visit Provider Family Medicine
DX: I48.19 Other persistent atrial fibrillation (principal); Z79.01 Long term (current) use of anticoagulants
CPT/HCPCS: 85610

== ENCOUNTER → 2024-08-30 08:53 | Outpatient (ROUT) | payer MEDICARE, OTHER, SELFPAY ==
[2024-01-31 17:51] VITALS: BMI 20.9
[2024-08-30 10:10] LABS: INR 2.3 (0.9-1.3); Prothrombin Time 25.3 SECONDS (9.4-12.5)
== END ==
LOC: LAB 08:54
PROVIDERS: Family Provider Family Medicine; PCP Family Medicine; Visit Provider Family Medicine
DX: I48.19 Other persistent atrial fibrillation (principal); Z79.01 Long term (current) use of anticoagulants
CPT/HCPCS: 85610

== ENCOUNTER → 2024-11-04 10:01 | Outpatient (CLI) | payer MEDICARE, OTHER, SELFPAY ==
[2024-01-31 17:51] VITALS: BMI 20.9
--- NOTE | 2024-11-04 10:02 | DI.US.S_ITS ---
PROCEDURE: US THYROID INDICATIONS: FOLLOW UP THYROID NODULE TECHNIQUE: Real-time scanning was performed of the thyroid gland, with image documentation. COMPARISON: [facility], US, US THYROID, 10/02/2023, 11:00. FINDINGS: Thyroid: Right lobe measures 4.4 x 1.1 x 1.3 cm. Left lobe measures 3.8 x 1.4 x 1.2 cm. Isthmus is 0.1 cm thick. Echotexture is homogeneous. Nodule number: 1 Location: Left mid Size: Mildly increased in size measuring 1.2 cm, previously 0.8 cm. Composition: Predominantly cystic Echogenicity: Hypoechoic Shape: wider than tall. Margins: Smooth Echogenic foci: None Total points: 3 ACR TI-RADS category: 3, Mildly suspicious Nodule number: 2 Location: Left inferior Size: Stable 0.9 cm. Composition: Predominantly cystic Echogenicity: Isoechoic Shape: wider than tall. Margins: Smooth Echogenic foci: None Total points: 2 ACR TI-RADS category: 2, not suspicious Nodule number: 3 Location: Right mid Size: Stable 0.9 cm. Composition: Predominantly cystic Echogenicity: Isoechoic Shape: wider than tall. Margins: Smooth Echogenic foci: None Total points: 2 ACR TI-RADS category: 2, not suspicious Nodule number: 4 Location: Right inferior Size: Stable 1.0 cm. Composition: Spongiform Echogenicity: Hypoechoic Shape: wider than tall. Margins: Ill-defined Echogenic foci: Punctate Total points: 5 ACR TI-RADS category: 5, moderately suspicious IMPRESSION: Thyroid nodules as described above. Recommend follow-up ultrasound as below. ACR TI-RADS definitions and recommendations: TI-RADS 1 (benign): 0 points. FNA not needed. TI-RADS 2 (not suspicious): 2 points. FNA not needed. TI-RADS 3: 3 points. * FNA if 2.5 cm or larger, follow up if 1.5 cm or larger (at 1, 3, and 5 years). TI-RADS 4: 4-6 points. * FNA if 1.5 cm or larger, follow up if 1 cm or larger (at 1, 2, 3, and 5 years). TI-RADS 5: 7 points or more. * FNA if 1 cm or larger, follow up if 0.5 cm or larger (every year for 5 years). Dictated by: Gurinder Ray Bell, M.D. on 11/04/2024 at 15:12 Approved by: Gurinder Bell M.D. on 11/04/2024 at 15:22
== END ==
LOC: US 10:01
PROVIDERS: Family Provider Family Medicine; PCP Family Medicine; Referring Provider Family Medicine; Visit Provider Family Medicine
DX: E04.2 Nontoxic multinodular goiter (principal)
CPT/HCPCS: 76536

== ENCOUNTER → 2024-12-16 09:26 | Outpatient (CLI) | payer MEDICARE, OTHER, SELFPAY ==
[2024-01-31 17:51] VITALS: BMI 20.9
--- NOTE | 2024-12-16 09:26 | DI.MG.S_ITS ---
MM diagnostic mammo BI, US breast BI limited: 12/16/2024 BI-RADS: 4B CLINICAL: 84-year old female for bilateral diagnostic mammogram and bilateral diagnostic breast ultrasound. No Tyrer-Cuzick risk score calculation due to the patient's personal history of breast cancer. Patient reports a history of bilateral breast carcinoma diagnosed at age 84. Status-post bilateral lumpectomies. PRIOR EXAMS 01/31/2024, 12/28/2023, 05/09/2023, 04/28/2023, 03/24/2023, 01/24/2022. MAMMOGRAPHY TECHNIQUE: 2D and 3D (tomosynthesis) digital mammographic views obtained, with additional images as needed for full coverage. Current study was also evaluated with a Computer Aided Detection (CAD) system. ULTRASOUND TECHNIQUE Real-time chatman scale and color doppler imaging of the area of clinical interest was performed with image documentation. TARGETED Bilateral Breast Ultrasound: Real-time ultrasound exam was performed focused to area of clinical and/or imaging concern. DENSITY C. The breasts are heterogeneously dense, which may obscure small masses. MAMMOGRAPHY FINDINGS Right: Central, Middle depth: There are two grouped amorphous calcifications. The two groups of calcifications measure approximately 0.4 cm and 0.3 cm, and are located 0.7 cm apart. Right (finding-2): Central, Middle depth, measuring 0.6cm: There is a focal asymmetry present. Left (finding-1): Outer at 3:00, Middle depth, measuring 1.5cm: Correlating with palpable lump there is a circumscribed, oval mass present. ULTRASOUND FINDINGS Right (finding-2): Inner at 3:00, 1 cm from nipple, measuring 0.6 x 0.4 x 0.5 cm: Correlating with findings on mammogram there is a complicated cyst present. This could represent clustered microcysts. Left (finding-1): Outer at 3:00, 5 cm from nipple, measuring 1.2 x 0.9 x 1.1 cm: Correlating with findings on mammogram there is a complicated cyst present. This could also represent a postoperative seroma. IMPRESSION: Right (Calcification): Central, Middle depth * Moderate Suspicion of Malignancy. Right (Complicated Cyst): Inner at 3:00, 1 cm from nipple, measuring 0.6 x 0.4 x 0.5 cm * Probably Benign. Left (Complicated Cyst): Outer at 3:00, 5 cm from nipple, measuring 1.2 x 0.9 x 1.1 cm * Probably Benign. RECOMMENDATIONS Right: Central, Middle depth * Stereotactic-guided biopsy for further evaluation (Recommend biopsy of the larger group of calcifications with further management of the smaller group of calcifications based on the results of the biopsy. If pathology is benign, consider short interval follow up to assess for continued stability). Right: Inner at 3:00, 1 cm from nipple * Six month followup with diagnostic ultrasound and diagnostic mammography. Left: Outer at 3:00, 5 cm from nipple * Six month followup with diagnostic ultrasound and diagnostic mammography. COMMENTS: Findings and recommendations were conveyed to the patient during today's evaluation over the phone by Dr. Rizzo. OVERALL ASSESSMENT CATEGORY BI-RADS-4: Suspicious. ELECTRONICALLY SIGNED: Annemarie Rizzo M.D. on 12/16/2024 at 12:37:04 PM PT Interpreting Station ID: [id number]
== END ==
PROVIDERS: Family Provider Family Medicine; PCP Family Medicine; Referring Provider Family Medicine; Visit Provider Family Medicine
DX: R92.8 Other abnormal and inconclusive findings on diagnostic imaging of breast (principal); Z85.3 Personal history of malignant neoplasm of breast; Z98.890 Other specified postprocedural states; Z78.0 Asymptomatic menopausal state; R92.333 Mammographic heterogeneous density, bilateral breasts; N64.89 Other specified disorders of breast; N63.25 Unspecified lump in the left breast, overlapping quadrants; R92.1 Mammographic calcification found on diagnostic imaging of breast
CPT/HCPCS: 76642; 77066; G0279

== ENCOUNTER → 2025-02-12 15:21 | Outpatient (CLI) | payer MEDICARE, OTHER, SELFPAY ==
[2024-01-31 17:51] VITALS: BMI 20.9
--- NOTE | 2025-02-12 15:24 | DI.ECHO.S_ITS ---
Version: 1 Study ID: [id number] [place] [address] Name: NORY MAGAÑA Study Date: 02/12/2025, 3: 40 PM : 1940 BP: 143 / 103 mmHg Gender: Female Height: 65 in Age: 85 Years Weight: 127 lb BSA: 1.63 mA??? Ordering: LAILA PEREZ Referring: LAILA PEREZ Clinician: Sudarshan Pastor Reason For Study: MURMUR History: Summary Statements Normal sinus rhythm. Normal LV size and wall thickness; normal wall motion and LV systolic function. EF is 70-75%. Moderate LA enlargement; otherwise normal chamber sizes. Aortic sclerosis without stenosis. Moderate TR and mild MR. Estimated PA systolic pressure is 59 mm Hg assuming RA pressure of 10 mm Hg. Compared to prior echo 06/27/2024, afib is no longer present. Severe biatrial enlargement is no longer present. Procedure: A two-dimensional transthoracic echocardiogram with color flow and Doppler was performed. The study quality was technically adequate. Comparison is made with the echocardiogram of 06/27/2024. The patient was in normal sinus rhythm during the exam. Left Ventricle: The left ventricle is normal in size. There is normal left ventricular wall thickness. There is no ventricular septal defect visualized. The ejection fraction is estimated to be 70-75%. Right Ventricle: The right ventricle is normal in size and function. There is a pacemaker lead in the right ventricle. Atria: The left atrium is moderately dilated. The right atrium is normal in size. There is no Doppler evidence for an interatrial shunt. Mitral Valve: There is mild mitral annular calcification. There is a flat closure plane of the the mitral valve leaflets. There is mild mitral regurgitation. Aortic Valve: The aortic valve is trileaflet. The aortic valve is mildly calcified. The aortic valve opens well. No aortic regurgitation is present. Tricuspid Valve: The tricuspid valve leaflets are thin and pliable. There is moderate tricuspid regurgitation. Pulmonic Valve: The pulmonic valve is not well seen, but is grossly normal. There is no pulmonic valvular regurgitation. Great Vessels: The aortic root is normal size. The ascending aorta could not be visualized. The pulmonary artery is not well visualized, but is probably normal size. The inferior vena cava was not visualized. Pericardium/ Pleura: There is no pericardial effusion. 2D and M-Mode Measurements and Calculations LVIDd: 4.4 cm AoV Openin.64 cm LVIDs: 3.1 cm LVOT diam: 1.84 cm IVSd: 0.81 cm Ao root diam: 3.4 cm LVPWd: 0.89 cm LV keita. diameter/BSA (cm/m^2): 2.7 LV sys. diameter/BSA (cm/m^2): 1.88 EPSS: 0.63 cm TAPSE: 2.27 cm LA A4 area: 26.6 grocery associate??? RA area: 20.5 grocery associate??? LA length (vol): 6.8 cm RA long axis: 7.2 cm RA vol: 49.4 ml RA : 30.3 ml/mA??? Doppler Measurements and Calculations Ao V2 max: 99.3 cm/sec LVOT Max Jd: 72.9 cm/sec Ao V2 mean: 69.5 cm/sec LV V1 max P.12 mmHg Ao V2 VTI: 23.8 cm LV V1 VTI: 17.8 cm Ao max P.9 mmHg SV(LVOT): 47.4 ml Ao mean P.11 mmHg ERNA(I,D): 1.99 grocery associate??? ERNA(V,D): 1.95 grocery associate??? ERNA indexed to BSA (cm^2/m^2): 1.22 sev ratio: 0.75 MV E max jd: 42.3 cm/sec MV dec time: 0.20 sec MV A max jd: 47.5 cm/sec MV E/A: 0.89 Med Peak E' Jd: 4.8 cm/sec Lat Peak E' Jd: 4.8 cm/sec E/e' average: 8.9 TR max jd: 351.2 cm/sec PA mean P.32 mmHg TR max P.3 mmHg PA V2 max: 82.9 cm/sec Electronically signed by: Ghada Hooker M.D. 02/13/2025, 1: 05 AM
--- NOTE | 2025-02-12 15:25 | DI.US.S_ITS ---
PROCEDURE: US PERIPH VENOUS UP EXTREM LT INDICATIONS: LEFT ARM PAIN TECHNIQUE: Real-time imaging, as well as color and pulse Doppler interrogation, was performed of the upper extremity deep veins from the inferior neck to the antecubital fossa. COMPARISON: None. FINDINGS: The internal jugular vein, visualized portions of the subclavian vein, axillary, and brachial veins are free of intraluminal thrombus. Where physically possible, the veins are normally compressible. Color and pulse Doppler demonstrate normal intraluminal flow, with expected phasicity and pulsatility. Additional scanning of the cephalic and basilic veins of the superficial system demonstrates normal compressibility, without thrombus. IMPRESSION: No findings of upper extremity deep venous thrombosis can be seen. Dictated by: Johny Acosta M.D. on 02/12/2025 at 16:25 Approved by: Johny Acosta M.D. on 02/12/2025 at 16:26
== END ==
LOC: ECHO 15:22
PROVIDERS: Family Provider Family Medicine; PCP Family Medicine; Referring Provider Family Medicine; Visit Provider Family Medicine
DX: I48.0 Paroxysmal atrial fibrillation (principal); M79.622 Pain in left upper arm; I08.1 Rheumatic disorders of both mitral and tricuspid valves
CPT/HCPCS: 93306; 93971

== ENCOUNTER → 2025-02-17 09:40 | Outpatient (ROUT) | payer MEDICARE, OTHER, SELFPAY ==
[2024-01-31 17:51] VITALS: BMI 20.9
[2025-02-17 09:53] LABS: INR 1.9 (0.9-1.3); Prothrombin Time 21.3 SECONDS (9.4-12.5)
== END ==
PROVIDERS: Family Provider Family Medicine; PCP Family Medicine; Visit Provider Family Medicine
DX: I48.19 Other persistent atrial fibrillation (principal); Z79.01 Long term (current) use of anticoagulants
CPT/HCPCS: 85610

== ENCOUNTER → 2025-03-03 13:50 | Outpatient (ROUT) | payer MEDICARE, OTHER, SELFPAY ==
[2024-01-31 17:51] VITALS: BMI 20.9
[2025-03-03 14:02] LABS: INR 2.3 (0.9-1.3); Prothrombin Time 25.7 SECONDS (9.4-12.5)
== END ==
PROVIDERS: Family Provider Family Medicine; PCP Family Medicine; Visit Provider Family Medicine
DX: I48.19 Other persistent atrial fibrillation (principal); Z79.01 Long term (current) use of anticoagulants
CPT/HCPCS: 85610

== ENCOUNTER → 2025-03-19 14:25 | Outpatient (ROUT) | payer MEDICARE, OTHER, SELFPAY ==
[2024-01-31 17:51] VITALS: BMI 20.9
[2025-03-19 14:38] LABS: INR 2.1 (0.9-1.3); Prothrombin Time 23.2 SECONDS (9.4-12.5)
== END ==
LOC: LAB 14:26
PROVIDERS: Family Provider Family Medicine; PCP Family Medicine; Visit Provider Family Medicine
DX: I48.19 Other persistent atrial fibrillation (principal); Z79.01 Long term (current) use of anticoagulants
CPT/HCPCS: 85610

== ENCOUNTER → 2025-04-07 13:48 | Outpatient (ROUT) | payer MEDICARE, OTHER, SELFPAY ==
[2024-01-31 17:51] VITALS: BMI 20.9
[2025-04-07 14:01] LABS: INR 1.9 (0.9-1.3); Prothrombin Time 21.6 SECONDS (9.4-12.5)
== END ==
PROVIDERS: Family Provider Family Medicine; PCP Family Medicine; Visit Provider Family Medicine
DX: I48.19 Other persistent atrial fibrillation (principal); Z79.01 Long term (current) use of anticoagulants
CPT/HCPCS: 85610

== ENCOUNTER → 2025-04-14 | Outpatient (CLI) | payer MEDICARE, OTHER, SELFPAY ==
[2024-01-31 17:51] VITALS: BMI 20.9
--- NOTE | 2025-04-29 11:32 | DI.NM.S_ITS ---
DATE OF SERVICE: 04/15/2025 PROCEDURE: Pharmacological perfusion study. INDICATIONS: Shortness of breath with sick sinus syndrome, paroxysmal AFib, pacemaker. RADIOPHARMACEUTICAL: 26 mCi technetium-99m Myoview IV was injected at stress and 25.6 mCi technetium-99m Myoview IV was injected at rest. CARDIAC STRESS: The patient underwent IV Lexiscan perfusion study under the supervision of an attending staff using standard Lexiscan protocol. The patient received intravenous Lexiscan as per standard protocol. Remained hemodynamically stable. Baseline blood pressure 150/80. Baseline rhythm sinus with some PACs and nonspecific ST-T changes. During stress, no convincing ischemic changes seen. The patient has intermittent PACs and PVCs without any complex arrhythmias like AFib or ventricular tachycardia. No chest pain. Had minimal dyspnea. RAW DATA: Breast shadow seen. GATED STUDY: Resting LV ejection fraction 80% and stress LV ejection fraction 85% without any obvious wall motion abnormalities. Resting end- diastolic volume 51 mL. TID ratio 0.84, which is within normal limits. Lung/heart ratio 0.23, which is within normal limit. MYOCARDIAL PERFUSION SCAN: There is no stress prone image. Stress supine and resting supine images were compared to each other. There is a normal myocardial perfusion. Summed stress score and rest score zero. CONCLUSION: This is a normal myocardial perfusion study without any ischemia or infarction. The patient had a perfusion study in November 2021, that time also had normal myocardial perfusion. Overall, low-risk myocardial perfusion scan. Amadorceline [place] - ANI/skylar/CRYSTAL doc#: [id number]/job#: [id number] dd: 04/15/2025 16:24:00 dt: 04/15/2025 16:30:00 DICTATING MD/COPIES TO: Marc Rivera MD COPIES MNE: KAYLEEN;
== END ==
LOC: NUCM 09:22
PROVIDERS: PCP Family Medicine; Referring Provider Physician Assistant; Visit Provider Physician Assistant
DX: R06.09 Other forms of dyspnea (principal); I49.5 Sick sinus syndrome; I48.0 Paroxysmal atrial fibrillation; Z95.0 Presence of cardiac pacemaker
CPT/HCPCS: 78452; 93017; A9502; J2785

== ENCOUNTER → 2025-04-16 14:07 | Outpatient (ROUT) | payer MEDICARE, OTHER, SELFPAY ==
[2024-01-31 17:51] VITALS: BMI 20.9
[2025-04-16 14:17] LABS: INR 2.5 (0.9-1.3); Prothrombin Time 27.2 SECONDS (9.4-12.5)
== END ==
PROVIDERS: PCP Family Medicine; Visit Provider Internal Medicine Hematology & Oncology
DX: C50.811 Malignant neoplasm of overlapping sites of right female breast (principal); C50.812 Malignant neoplasm of overlapping sites of left female breast; Z17.0 Estrogen receptor positive status [ER+]; Z79.01 Long term (current) use of anticoagulants
CPT/HCPCS: 85610

== ENCOUNTER → 2025-04-28 14:35 | Outpatient (ROUT) | payer MEDICARE, OTHER, SELFPAY ==
[2024-01-31 17:51] VITALS: BMI 20.9
[2025-04-28 14:45] LABS: INR 1.4 (0.9-1.3); Prothrombin Time 16.1 SECONDS (9.4-12.5)
== END ==
PROVIDERS: PCP Family Medicine; Visit Provider Family Medicine
DX: I48.19 Other persistent atrial fibrillation (principal); Z79.01 Long term (current) use of anticoagulants
CPT/HCPCS: 85610

== ENCOUNTER → 2025-05-05 15:15 | Outpatient (ROUT) | payer MEDICARE, OTHER, SELFPAY ==
[2024-01-31 17:51] VITALS: BMI 20.9
[2025-05-05 15:30] LABS: INR 1.5 (0.9-1.3); Prothrombin Time 16.4 SECONDS (9.4-12.5)
== END ==
PROVIDERS: PCP Family Medicine; Visit Provider Family Medicine
DX: I48.19 Other persistent atrial fibrillation (principal); Z79.01 Long term (current) use of anticoagulants
CPT/HCPCS: 85610

== ENCOUNTER → 2025-05-12 10:25 | Outpatient (ROUT) | payer MEDICARE, OTHER, SELFPAY ==
[2024-01-31 17:51] VITALS: BMI 20.9
[2025-05-12 10:31] LABS: INR 1.9 (0.9-1.3); Prothrombin Time 21.6 SECONDS (9.4-12.5)
== END ==
PROVIDERS: PCP Family Medicine; Visit Provider Family Medicine
DX: Z79.01 Long term (current) use of anticoagulants (principal); I48.91 Unspecified atrial fibrillation
CPT/HCPCS: 85610